=== PATIENT | female | born 1960 | race Two or more races ===

== ENCOUNTER 2016-12-07 13:28 | Emergency (ER) | payer MEDICAID ==
[~2016-12-07] VITALS: Ht 167.6 cm; Wt 135.2 kg
[~2016-12-07 13:28] MED LIST: AMBIEN10 MG PO; AMLODIPINE; AMLODIPINE BESYL5 MG ORAL; ASPIRIN EC81 MG PO; ATENOLOL; ATIVAN1 MG PO; BENADRYL50 MG ORAL; COLACE; COLACE250 MG PO; DIABETA2.5 MG ORAL; ENALAPRIL MALEA20 MG PO; FLUCONAZOLE150 MG ORAL; GLUCOPHAGE850 MG PO; GLYBURIDE; IBUPROFEN600 MG ORAL; JANUMET 50-1,01 EACH ORAL; LIPITOR40 MG ORAL; METOPROLOL TART50 M1 ORAL; NORCO; NORCO 10-325 T1 EACH PO; NORCO 5-325 TA1 EACH ORAL; NORVASC5 MG PO; OXYCODONE IR15 MG ORAL; PHENAZOPYRIDIN100 MG ORAL; PRILOSEC20 MG PO; PROTONIX40 M2 GT; SIMVASTATIN40 MG PO; SOMA350 MG PO; TENORMIN25 MG PO; VUSION OINTMENT50 GM TP; ZANTAC150 MG PO; ZESTRIL10 M1 ORAL; ZOFRAN ODT4 MG ORAL
[2016-12-07 14:17] VITALS: BP 164/87
--- NOTE | 2016-12-08 21:40 | Emergency Room Report ---
History of Present Illness General Chief Complaint: Pain Source: Patient Present Illness HPI Patient presents with bilateral knee pain However mainly complains of left-sided knee pain Reports that she previous knee replacements Off-and-on she has pain last week she had an episode where she feels that the knee dislocated And then came back into place Since then she has some discomfort with ambulation Denies any fevers or chills denies any swelling at this time denies any redness Allergies: Coded Allergies: CEFOTETAN (Verified Allergy, Severe, SHORTNESS OF BREATH, 03/20/12) CEFOTETAN DISODIUM (Unverified Allergy, Severe, 07/29/12) QUINOLONES (Verified Allergy, Mild, Rash, 03/20/12) CEFAZOLIN (Verified Allergy, Unknown, 07/01/09) CEFOTIAM (Verified Allergy, Unknown, Anaphylaxis, 12/07/16) CIPROFLOXACIN (Verified Allergy, Unknown, Hives, 12/07/16) CIPROFLOXACIN HCL (Verified Allergy, Unknown, Hives, 12/07/16) DEXTROSE-WATER (Unverified Allergy, Unknown, 12/07/16) LEVOFLOXACIN (Verified Allergy, Unknown, 12/07/16) Uncoded Allergies: SUFTAN (Allergy, Unknown, 12/07/16) Patient History Past Medical History: see triage record Pertinent Family History: none Reviewed Nursing Documentation: PMH: Agreed, PSxH: Agreed Nursing Documentation-PMH Past Medical History: No History, Except For Hx Cardiac Problems: No - BILATERAL HIP SURGERY Hx Hypertension: Yes Hx Diabetes: Yes Hx Cancer: No Hx Gastrointestinal Problems: Yes - DIVERTICULITIS, ABD HERNIA REPAIR Review of Systems All Other Systems: negative except mentioned in HPI Physical Exam Vital Signs Date Time Temp Pulse Resp B/P Pulse Ox O2 Delivery O2 Flow Rate FiO2 12/07/16 13:35 98.4 102 14 164/87 98 Room Air Sp02 EP Interpretation: reviewed, normal General Appearance: well appearing, no apparent distress Head: normocephalic, atraumatic Eyes: bilateral eye EOMI, bilateral eye PERRL ENT: hearing grossly normal, normal pharynx, TMs + canals normal, uvula midline Neck: full range of motion, supple, no meningismus, no bony tend Respiratory: lungs clear, normal breath sounds, no rhonchi, no respiratory distress, no retraction, no accessory muscle use Cardiovascular #1: normal peripheral pulses, regular rate, rhythm, no edema, no gallop, no JVD, no murmur Gastrointestinal: normal bowel sounds, non tender, soft, no mass, no organomegaly, non-distended, no guarding, no hernia, no pulsatile mass, no rebound Genitourinary: no CVA tenderness Musculoskeletal: other - Evidence of previous bilateral knee replacements, no obvious joint effusion, patient has range of motion intact Neurologic: oriented x3, responsive, learning operations specialist III-XII nml as tested, motor strength/ tone normal, sensory intact Psychiatric: mood/affect normal Skin: normal color, no rash, warm/dry, palpation normal Lymphatic: normal inspection, no adenopathy Medical Decision Making Diagnostic Impression: Primary Impression: knee pain Additional Impression: knee sprain ER Course Patient has evidence of acute on chronic knee discomfort at this time I do not appreciate Clinical findings in line with any acute fractures Patient might have suffered ligamental injury With the injury At this time ambulatory patient is under pain management care In a stable for close outpatient followup Last Vital Signs Date Time Temp Pulse Resp B/P Pulse Ox O2 Delivery O2 Flow Rate FiO2 12/07/16 14:17 72 16 130/80 98 Room Air 12/07/16 14:17 98.4 Status: unchanged Disposition: HOME, SELF-CARE Condition: Stable Referrals: [facility],REFERRING (PCP) Patient Instructions: Knee Sprain, Hprb-[id number], Knee Pain, [id number] Additional Instructions: Patient is provided with the discharge instructions notified to follow up with primary doctor in the next 2-3 days otherwise return to the er with any worsening symptoms. Please note that this report is being documented using [employer] technology. This can lead to erroneous entry secondary to incorrect interpretation by the dictating instrument. DESTINY JIMENES D.O. Dec 08, 2016 21:40
== END 2016-12-07 14:28 | disposition home or self-care (01) ==
LOC: EMR 14:08
DX: S83.92XA Sprain of unspecified site of left knee, initial encounter (principal); S83.91XA Sprain of unspecified site of right knee, initial encounter; X58.XXXA Exposure to other specified factors, initial encounter; Y92.9 Unspecified place or not applicable; Z88.1 Allergy status to other antibiotic agents; E11.9 Type 2 diabetes mellitus without complications; I10 Essential (primary) hypertension; Z96.653 Presence of artificial knee joint, bilateral
CPT/HCPCS: 99282

== ENCOUNTER 2018-08-23 13:04 | Emergency (ER) | payer MEDICAID ==
[~2018-08-23] VITALS: Ht 170.2 cm; Wt 124.7 kg
[2018-08-23 13:15] VITALS: BP 148/86
--- NOTE | 2018-08-23 13:15 | NUR ---
ED Nurse Note: PT WALKED IN TO ER TODAY FROM HOME. AOX4. PT C/O BRUISING, WARMTH, ITCHING AND PAIN IN RIGHT ARM X YESTERDAY AM. CIRCULATION AND SENSATION INTACT, CAP REFILL <3 SECONDS, FULL ROM OF DIGITS AND EXTREMITY, AND MUSCLE STRENGTH 5/5.
[2018-08-23] MEDS ORDERED: Hydrocortisone 2.5% Oint 30gm TOPIC ONE (14:30)
[2018-08-23] MEDS ORDERED: Clindamycin 150mg cap ORAL ONE (14:30)
--- NOTE | 2018-08-23 14:37 | Emergency Room Report ---
History of Present Illness General Chief Complaint: Skin Rash/Abscess Source: Patient Present Illness HPI 57-year-old female presents to the emergency department complaining of 2 insect bites on the right forearm since yesterday with erythema, warmth, itching and tenderness. Patient states that one swelled up to giant out but then decreased on its own. Patient is concerned about the amount of erythema and some linear bruising. Patient states she was just recently discharged from patient being treated for pneumonia. She reports 8/10 in sensation burning pain. Patient states she is currently taking doxycycline. Pt. denies fevers, chills or swollen tender lymph nodes. Denies lesions/rashes elsewhere on the body. Denies new medications or body washes or creams. Denies swelling of the lips, tongue , throat or airway. Denies wheezing, or shortness of breath. Denies recent travel , recent illness or ill contacts. denies blisters, oral lesions, or sloughing of the skin Allergies: Coded Allergies: CEFOTETAN (Verified Allergy, Severe, SHORTNESS OF BREATH, 03/20/12) CEFOTETAN DISODIUM (Unverified Allergy, Severe, 07/29/12) QUINOLONES (Verified Allergy, Mild, Rash, 03/20/12) CEFAZOLIN (Verified Allergy, Unknown, 07/01/09) CEFOTIAM (Verified Allergy, Unknown, Anaphylaxis, 12/07/16) CIPROFLOXACIN (Verified Allergy, Unknown, Hives, 12/07/16) CIPROFLOXACIN HCL (Verified Allergy, Unknown, Hives, 12/07/16) DEXTROSE-WATER (Unverified Allergy, Unknown, 12/07/16) LEVOFLOXACIN (Verified Allergy, Unknown, 12/07/16) Uncoded Allergies: SUFTAN (Allergy, Unknown, 12/07/16) Patient History Past Medical History: see triage record Past Surgical History: none Pertinent Family History: none Now: No Reviewed Nursing Documentation: PMH: Agreed; PSxH: Agreed Nursing Documentation-PMH Past Medical History: No History, Except For Hx Cardiac Problems: No - BILATERAL HIP SURGERY Hx Hypertension: Yes Hx Diabetes: Yes Hx Cancer: No Hx Gastrointestinal Problems: Yes - DIVERTICULITIS, ABD HERNIA REPAIR Review of Systems All Other Systems: negative except mentioned in HPI Physical Exam Vital Signs Date Time Temp Pulse Resp B/P (MAP) Pulse Ox O2 Delivery O2 Flow Rate FiO2 08/23/18 13:12 99.0 68 20 152/88 98 Room Air Sp02 EP Interpretation: reviewed, normal General Appearance: no apparent distress, alert, GCS 15, non-toxic Head: normocephalic, atraumatic Eyes: bilateral eye normal inspection, bilateral eye PERRL ENT: hearing grossly normal, normal voice Neck: full range of motion Respiratory: lungs clear, normal breath sounds, speaking full sentences Cardiovascular #1: regular rate, rhythm Musculoskeletal: back normal, gait/station normal, normal range of motion, non- tender Neurologic: alert, oriented x3, responsive, motor strength/tone normal, sensory intact, speech normal, grossly normal Psychiatric: judgement/insight normal Skin: warm/dry, well hydrated, other - erythema, warmth and two discrete lesions right fore arm, the linear pattern of bruising/ petechiae is most likely secondary to scratching. no blisters Lymphatic: no adenopathy Medical Decision Making PA Attestation Dr. Dave is my supervising Physician whom patient management has been discussed with. Diagnostic Impression: Primary Impression: Cellulitis of forearm, right ER Course 57-year-old female presents to the emergency department complaining of 2 insect bites on the right forearm since yesterday with erythema, warmth, itching and tenderness. Patient states that one swelled up to giant out but then decreased on its own. Patient is concerned about the amount of erythema and some linear bruising. Patient states she was just recently discharged from patient being treated for pneumonia. She reports 8/10 in sensation burning pain. Patient states she is currently taking doxycycline. Pt. denies fevers, chills or swollen tender lymph nodes. Denies lesions/rashes elsewhere on the body. Denies new medications or body washes or creams. Denies swelling of the lips, tongue , throat or airway. Denies wheezing, or shortness of breath. Denies recent travel , recent illness or ill contacts. denies blisters, oral lesions, or sloughing of the skin Ddx considered but are not limited to cellulitis, Drug reaction, Allergic reaction, insect bite, blood disorder just to name a few. Vital signs: are WNL, pt. is afebrile H&PE are most consistent with Cellulitis of the right fore arm, the linear pattern of bruising/ petechiae is most likely secondary to scratching. no blisters noted. ORDERS: none required at this time, the diagnosis is clinical ED INTERVENTIONS: -Clindamycin PO -Hydrocortisone Cream TP -Patient is discharged with very strict ED return precautions and close outpatient follow-up. Patient is aware what signs and symptoms that would indicate prompt return to the emergency department. DISCHARGE: At this time pt. is stable for d/c to home. Will provide printed patient care instructions, and any necessary prescriptions. Care plan and follow up instructions have been discussed with the patient prior to discharge. Last Vital Signs Date Time Temp Pulse Resp B/P (MAP) Pulse Ox O2 Delivery O2 Flow Rate FiO2 08/23/18 13:12 99.0 68 20 152/88 98 Room Air Disposition: HOME, SELF-CARE Condition: Stable Scripts Clindamycin Hcl (CLINDAMYCIN HCL) 300 Mg Capsule 300 MG ORAL FOUR TIMES A DAY for 7 Days, #28 CAP Prov: Xiomara Can 08/23/18 Diphenhydramine Hcl* (BENADRYL*) 25 Mg Capsule 25 MG ORAL Q6H PRN for Itching, #20 CAP Prov: Xiomara Can 08/23/18 Additional Instructions: Take medications as directed. * Continue taking Doxycycline Strict monitoring for worsening/ progression of infection return immediately with more redness, swelling, and warmth. Follow up with a Primary Care Provider in 3-5 days, even if your symptoms have resolved. Return sooner to ED if new symptoms occur, or current symptoms become worse. - Please note that this Emergency Department Report was dictated using [employer] technology software, occasionally this can lead to erroneous entry secondary to interpretation by the dictation equipment. Xiomara Can Aug 23, 2018 14:37
[2018-08-23] MEDS ORDERED: AUGMENTIN 875-1 EAC1 ORAL (14:52)
[2018-08-23] MEDS ORDERED: BENADRYL25 MG ORAL (14:52)
[2018-08-23] MEDS ORDERED: CLINDAMYCIN HC300 MG ORAL (14:55)
[2018-08-23 15:09] VITALS: BP 140/68
--- NOTE | 2018-08-23 15:10 | NUR ---
ED Nurse Note: pt discharge instruction provided w/ prescription, pt verbalized understanding and agrees with plan, pt education done, pt advised to follow up w/ pcp in 2-3days, return to ED if s/s worsen or new s/s develop, pt belongings left w/ pt, id band removed. pt ambulatory, AA&ox4, gcs=15, vss.
== END 2018-08-23 15:11 | disposition home or self-care (01) ==
LOC: EMR 13:53
DX: L03.113 Cellulitis of right upper limb (principal); I10 Essential (primary) hypertension; E11.9 Type 2 diabetes mellitus without complications; Z88.1 Allergy status to other antibiotic agents; Z88.8 Allergy status to other drugs, medicaments and biological substances
CPT/HCPCS: 99283

== ENCOUNTER 2018-09-21 13:38 | Emergency (ER) | payer MEDICAID ==
[~2018-09-21] VITALS: Ht 170.2 cm; Wt 125.2 kg
[~2018-09-21 13:38] MED LIST changes: +AUGMENTIN 875-1 EAC1 ORAL; +BENADRYL25 MG ORAL; +CLINDAMYCIN HC300 MG ORAL
--- NOTE | 2018-09-21 13:40 | NUR ---
ED Nurse Note: last night pt felt dizzy, states that she hit her Rt shoulder and Rt knee and now has pain. patient rates her pain a 10/10 pain. patient is able to move both shoulders and legs however with pain
[2018-09-21 14:30] VITALS: BP 129/76
[2018-09-21] MEDS ORDERED: Norco 5mg/325mg tab ORAL ONE (15:15)
[2018-09-21 16:00] VITALS: BP 122/75
--- NOTE | 2018-09-21 16:00 | NUR ---
ED Nurse Note: Pt. AAOx4. left with steady and all belongings. Pt. education done regarding d/c papers and prescriptions. Pt. verbalized the uderstanding of the teaching. VSS. ID armband removed.
--- NOTE | 2018-09-21 16:02 | Diagnostic Imaging Report ---
Indication: Right elbow injury pain Findings: 3 views of the right elbow were obtained. No acute fractures, malalignment, erosions or periostitis are identified. Bone mineralization is within normal limits. Soft tissues are unremarkable. Impression: Negative examination of the elbow.
--- NOTE | 2018-09-21 16:02 | Diagnostic Imaging Report ---
Indication: Pain Knee pain/trauma 3 views of the right knee were obtained. Findings: There is a cemented total knee arthroplasty demonstrated. There are no abnormal interface lucencies or fractures identified. No soft tissue swelling or joint effusion is seen identified. The bones are osteopenic. IMPRESSION: No acute injury identified
--- NOTE | 2018-09-21 16:03 | Diagnostic Imaging Report ---
Indication: Right shoulder pain Findings: 3 views of the right shoulder were obtained. No acute fractures, malalignment, erosions or periostitis are identified. Bones are osteopenic. Some arthrosis at the acromioclavicular joint noted. Soft tissues are unremarkable. Impression: Negative for acute injury
--- NOTE | 2018-09-21 17:55 | Emergency Room Report ---
History of Present Illness General Chief Complaint: Pain Source: Patient Present Illness HPI Patient presents emergency department today complaining of fall that occurred yesterday. Patient states that she had a mechanical fall landed on her right shoulder and the back of her right neck. She's complaining of right shoulder pain and right elbow pain and right knee pain. She denies any neck pain chest pain shortness breath. Denies a loss consciousness. No other complaints are noted. Symptoms noted to be [id number].No other modifying factors. No other associated signs and symptoms. No other complaints were noted. Allergies: Coded Allergies: CEFOTETAN (Verified Allergy, Severe, SHORTNESS OF BREATH, 03/20/12) CEFOTETAN DISODIUM (Unverified Allergy, Severe, 07/29/12) QUINOLONES (Verified Allergy, Mild, Rash, 03/20/12) CEFAZOLIN (Verified Allergy, Unknown, 07/01/09) CEFOTIAM (Verified Allergy, Unknown, Anaphylaxis, 12/07/16) CIPROFLOXACIN (Verified Allergy, Unknown, Hives, 12/07/16) CIPROFLOXACIN HCL (Verified Allergy, Unknown, Hives, 12/07/16) DEXTROSE-WATER (Unverified Allergy, Unknown, 12/07/16) LEVOFLOXACIN (Verified Allergy, Unknown, 12/07/16) Uncoded Allergies: SUFTAN (Allergy, Unknown, 12/07/16) Patient History Past Medical History: DM, HTN, other - diverticulitis, hernia repair Past Surgical History: other - right knee surgery Pertinent Family History: none Social History: Denies: smoking, alcohol use, drug use Reviewed Nursing Documentation: PMH: Agreed; PSxH: Agreed Nursing Documentation-PMH Hx Cardiac Problems: No - BILATERAL HIP SURGERY Hx Hypertension: Yes Hx Diabetes: Yes Hx Cancer: No Hx Gastrointestinal Problems: Yes - DIVERTICULITIS, ABD HERNIA REPAIR Review of Systems All Other Systems: negative except mentioned in HPI Physical Exam Vital Signs Date Time Temp Pulse Resp B/P (MAP) Pulse Ox O2 Delivery O2 Flow Rate FiO2 09/21/18 13:55 98.1 105 20 96 Room Air 09/21/18 14:30 129/76 Sp02 EP Interpretation: reviewed, normal General Appearance: normal inspection, well appearing, no apparent distress, alert Head: atraumatic Eyes: bilateral eye normal inspection ENT: normal ENT inspection, hearing grossly normal, normal voice Neck: normal inspection, full range of motion, supple, no bony tend Respiratory: normal inspection, lungs clear, normal breath sounds, no respiratory distress, no retraction, no wheezing Cardiovascular #1: regular rate, rhythm, no edema Gastrointestinal: normal inspection, normal bowel sounds, non tender, soft, no guarding, no hernia Genitourinary: no CVA tenderness Musculoskeletal: normal inspection, back normal, normal range of motion, tender - right shoulder, right elbow, right knee Neurologic: normal inspection, alert, responsive, speech normal Psychiatric: normal inspection, judgement/insight normal, mood/affect normal Skin: normal inspection, normal color, no rash Medical Decision Making Diagnostic Impression: Primary Impression: Strain of knee and leg, right Additional Impressions: Right shoulder strain Fall ER Course Patient presents emergency department today status post fall. Differential considerations cofactors dislocation versus strain. Given patient's presentation I felt x-rays are indicated. X-rays of the knee shoulder and elbow were interpreted by radiology negative for any fractures. Patient is able to ambulate with some assistance. There is no evidence of any acute fractures clinically either. Patient was placed in a sling which made her feel more comfortable. Patient states that she has a prescription pain medications at home.Patient is advised to follow up with primary doctor in 2-3 days and return the emergency room for any worsening symptoms and as needed. Last Vital Signs Date Time Temp Pulse Resp B/P (MAP) Pulse Ox O2 Delivery O2 Flow Rate FiO2 09/21/18 14:30 98.1 82 20 129/76 96 Room Air Status: improved Disposition: HOME, SELF-CARE Condition: Stable Referrals: ASHELY MCKEON,REFERRING (PCP) Patient Instructions: Shoulder Pain, How to Use a Sling Lg Landrum MD Sep 21, 2018 17:55
== END 2018-09-21 16:00 | disposition home or self-care (01) ==
LOC: EMR 14:56
DX: S46.911A Strain of unspecified muscle, fascia and tendon at shoulder and upper arm level, right arm, initial encounter (principal); S86.911A Strain of unspecified muscle(s) and tendon(s) at lower leg level, right leg, initial encounter; W19.XXXA Unspecified fall, initial encounter; Y92.9 Unspecified place or not applicable; E11.9 Type 2 diabetes mellitus without complications; I10 Essential (primary) hypertension; Z88.1 Allergy status to other antibiotic agents; Z88.8 Allergy status to other drugs, medicaments and biological substances
CPT/HCPCS: 99283

== ENCOUNTER 2018-11-29 13:48 | Emergency (ER) | payer MEDICAID ==
[~2018-11-29] VITALS: Ht 167.6 cm; Wt 117.5 kg
--- NOTE | 2018-11-29 14:26 | Emergency Room Report ---
History of Present Illness General Chief Complaint: Earache Present Illness HPI 58-year-old female presents with multiple complaints. Patient states that 3-1/ 2 weeks ago she had a fall and was evaluated in the hospital where CT scan and x -rays were negative. States that she is currently under the management of a welding machine setter and neurologist for frequent falls. States she has been having worsening right arm, shoulder, and neck pain after the fall. States is worse with movement and with abduction of the right shoulder. Taking Percocet for her pain. In addition to this the patient also complains of unable to hear from her left ear. States that she has no pain or pressure from her ear denies any headache or blurred vision. She denies any numbness, loss of range of motion, chest pain, shortness of breath. Allergies: Coded Allergies: CEFOTETAN (Verified Allergy, Severe, SHORTNESS OF BREATH, 03/20/12) CEFOTETAN DISODIUM (Unverified Allergy, Severe, 07/29/12) QUINOLONES (Verified Allergy, Mild, Rash, 03/20/12) CEFAZOLIN (Verified Allergy, Unknown, 07/01/09) CEFOTIAM (Verified Allergy, Unknown, Anaphylaxis, 12/07/16) CIPROFLOXACIN (Verified Allergy, Unknown, Hives, 12/07/16) CIPROFLOXACIN HCL (Verified Allergy, Unknown, Hives, 12/07/16) DEXTROSE-WATER (Unverified Allergy, Unknown, 12/07/16) LEVOFLOXACIN (Verified Allergy, Unknown, 12/07/16) Uncoded Allergies: SUFTAN (Allergy, Unknown, 12/07/16) Patient History Past Medical History: see triage record Pertinent Family History: none Last Menstrual Period: menopause Now: No Reviewed Nursing Documentation: PMH: Agreed; PSxH: Agreed Nursing Documentation-PMH Hx Cardiac Problems: No - BILATERAL HIP SURGERY Hx Hypertension: Yes Hx Diabetes: Yes Hx Cancer: No Hx Gastrointestinal Problems: Yes - DIVERTICULITIS, ABD HERNIA REPAIR Review of Systems All Other Systems: negative except mentioned in HPI Physical Exam Vital Signs Date Time Temp Pulse Resp B/P (MAP) Pulse Ox O2 Delivery O2 Flow Rate FiO2 11/29/18 14:00 99.0 89 16 121/73 96 Room Air Sp02 EP Interpretation: reviewed, normal General Appearance: no apparent distress, alert, GCS 15, non-toxic Head: normocephalic, atraumatic Eyes: bilateral eye normal inspection, bilateral eye PERRL ENT: hearing grossly normal, normal pharynx, no angioedema, normal voice, other - bilateral TMs obscured with cerumen Neck: full range of motion, supple/symm/no masses, other - pericervical tenderness Respiratory: chest non-tender, lungs clear, normal breath sounds, speaking full sentences Cardiovascular #1: regular rate, rhythm, no edema Musculoskeletal: back normal, gait/station normal, normal range of motion, other - uses cane to walk with right hand, tender - right shoulder Neurologic: alert, oriented x3, responsive, motor strength/tone normal, sensory intact, speech normal Psychiatric: judgement/insight normal, memory normal, mood/affect normal, no suicidal/homicidal ideation Lymphatic: no adenopathy Medical Decision Making PA Attestation Dr. Diaz is my supervising physician with whom patient management has been discussed with. Diagnostic Impression: Primary Impression: Impacted cerumen of left ear Additional Impressions: Excessive cerumen in right ear canal Right shoulder strain Qualified Codes: S46.911A - Strain of unspecified muscle, fascia and tendon at shoulder and upper arm level, right arm, initial encounter Cervical strain Qualified Codes: S16.1XXA - Strain of muscle, fascia and tendon at neck level , initial encounter ER Course Patient with right shoulder and neck pain status post fall 3-1/2 weeks ago. X- ray showed no acute fracture or dislocations. She has no evidence of spinal stenosis. She has no neurological symptoms. She had her left ear with decreased hearing which was improved after ear lavage due to impacted cerumen. Other X-Ray Diagnostic Results Other X-Ray Diagnostic Results : X-Ray ordered: Cervical spine and right shoulder # of Views/Limited Vs Complete: Complete Indication: Pain EP Interpretation: Yes PA Xray: Interpretation reviewed, by supervising MD, and agrees with findings. Interpretation: no dislocation, no soft tissue swelling, no fractures, other - Spurring of the right shoulder, fusion of cervical spine C6 and C7 Impression: No acute disease Electronically Signed by: Jes Vogt PA-C Last Vital Signs Date Time Temp Pulse Resp B/P (MAP) Pulse Ox O2 Delivery O2 Flow Rate FiO2 11/29/18 14:00 99.0 89 16 121/73 96 Room Air Disposition: HOME, SELF-CARE Condition: Improved Scripts Carbamide Peroxide (MURINE EAR WAX REMOVAL SYSTEM) 15 Ml Drops 15 ML OT BID for 4 Days, #1 UNIT Prov: Jes Vogt 11/29/18 Lidocaine (Lidoderm) 1 Each Adh..patch 1 PATCH TOPIC Q12HR, #7 PATCH 0 Refills Patch(es) may remain in place for up to 12 hours in any 24-hour period. Prov: Jes Vogt 11/29/18 Patient Instructions: Cerumen Impaction, Cervical Strain and Sprain With Rehab- [facility] Additional Instructions: Take medication as directed. Follow up with your PCP within 3-5 days for management of this chronic pain. Advise patient to use RICE therapy and avoid exercises for the next 2-3 weeks to help rest the neck and shoulder. Patient instructed to massage the muscles that are tight or tense, put ice for 5-7 minutes or a frozen bag of peas or cold gel pack on the area for 20 minutes at a time, a few times a day, put heat on the area to reduce pain and stiffness by either taking a hot shower or hot bath, or put a hot towel on the area for no more than 20 minutes at a time. Patient instructed to not use anything too hot that could burn your skin. Jes Vogt Nov 29, 2018 14:26
[2018-11-29] MEDS ORDERED: Docusate 100mg/10ml Liq NG ONE (14:30)
[2018-11-29 14:31] VITALS: BP 121/73
--- NOTE | 2018-11-29 14:33 | NUR ---
ED Nurse Note:pt. came with c/o right neck/shoulder pain and left ear wax, pt. went to CT scan
[2018-11-29] MEDS ORDERED: LIDODERM700 M1 TOPIC (15:43)
[2018-11-29] MEDS ORDERED: MURINE EAR WAX15 ML OT (15:43)
[2018-11-29 15:55] VITALS: BP 121/71
--- NOTE | 2018-11-29 15:56 | NUR ---
ED Nurse Note: pt cleared to be d/c per ERMD, pt discharge and aftercare instruction provided w/ prescription, pt education done via discussion and handout, pt advised to follow up with pcp or return to ed if sx worsen or new sx develop, pt verbalized understanding and agrees with plan, vss, ambulatory w/ steady gait w/ cane, left w/ all belongings, ID band removed. ear lavage done by personnel and payroll technician.
--- NOTE | 2018-11-29 16:15 | Diagnostic Imaging Report ---
Indication: Right shoulder pain Technique: 3 views of the right shoulder Comparison: none Findings: Small spurs are seen off of the acromion and clavicle. No acute fractures. No dislocations. The joint spaces are preserved. Impression: Negative
--- NOTE | 2018-11-29 17:26 | Diagnostic Imaging Report ---
Indication: Pain Technique: 3 views of the cervical spine Comparison: 01/02/2012 Findings: Bony alignment is normal. No prevertebral soft tissue swelling. No acute fractures. No dislocations. Vertebral body heights are preserved. There is degenerative disc narrowing at C4-5. There is ankylosis of the disc at C5-6. There is degenerative disc narrowing at C6-7. The degenerative changes have progressed significantly since the previous study. Impression: No acute bony trauma Degenerative changes, as described
== END 2018-11-29 15:57 | disposition home or self-care (01) ==
LOC: EMR 15:04
DX: S16.1XXA Strain of muscle, fascia and tendon at neck level, initial encounter (principal); S46.911A Strain of unspecified muscle, fascia and tendon at shoulder and upper arm level, right arm, initial encounter; H61.23 Impacted cerumen, bilateral; Z88.8 Allergy status to other drugs, medicaments and biological substances; I10 Essential (primary) hypertension; E11.9 Type 2 diabetes mellitus without complications; K57.90 Diverticulosis of intestine, part unspecified, without perforation or abscess without bleeding; Z98.1 Arthrodesis status; W19.XXXA Unspecified fall, initial encounter; Y92.9 Unspecified place or not applicable; Z91.81 History of falling
CPT/HCPCS: 72040; 99283

== ENCOUNTER 2020-01-06 10:07 | Inpatient (IN) | payer MEDICAID ==
[~2020-01-06] VITALS: Ht 165.1 cm; Wt 108.6 kg
[~2020-01-06 10:07] MED LIST changes: +LIDODERM700 M1 TOPIC; +MURINE EAR WAX15 ML OT; -PROTONIX40 M2 GT; +PROTONIX40 M2 PO; +ROBAXIN-500MG ORAL
[2020-01-06 10:24] VITALS: BP 161/95
[2020-01-06] MEDS ORDERED: Omnipaque-300 100ml vial INJ PRN (10:30)
[2020-01-06] MEDS ORDERED: Morphine Sulfate 4mg/ml Inj (IV USE ONLY) IVP ONE (10:30)
[2020-01-06] MEDS ORDERED: Pantoprazole Inj IV ONE (10:30)
--- NOTE | 2020-01-06 10:30 | NUR ---
ED Nurse Note: Pt ambulated assisted with cane to ED from home d/t abdominal pain with nausea, vomiting and diarrhea x 2 days. Pt is AOx4, appears to be restless. Pt's VSS, on RA, afebrile on triage. Pt denies any shortness of breath, recent fever nor coughing. Placed on bed and gown.
--- NOTE | 2020-01-06 10:40 | NUR ---
ED Nurse Note: blood and urine specimen collected, sent to labs.
--- NOTE | 2020-01-06 10:48 | Emergency Room Report ---
History of Present Illness General Chief Complaint: Abdominal Pain Source: Patient Present Illness HPI 59-year-old female presents with abdominal pain for 3 days. Pain is sharp, 8 out of 10, nonradiating. Notes vomiting and diarrhea. Denies fevers or chills. Denies runny nose cough congestion. Denies sick contacts or recent travel. States she has had "stomach problems" for years now. States she was recently switched from Protonix to another medication which she states is not helping. No other aggravating relieving factors. Denies chest pain or shortness of breath. Denies any other associated symptoms Allergies: Coded Allergies: CEFOTETAN (Verified Allergy, Severe, SHORTNESS OF BREATH, 03/20/12) CEFOTETAN DISODIUM (Unverified Allergy, Severe, 07/29/12) QUINOLONES (Verified Allergy, Mild, Rash, 03/20/12) CEFAZOLIN (Verified Allergy, Unknown, 07/01/09) CEFOTIAM (Verified Allergy, Unknown, Anaphylaxis, 12/07/16) CIPROFLOXACIN (Verified Allergy, Unknown, Hives, 12/07/16) CIPROFLOXACIN HCL (Verified Allergy, Unknown, Hives, 12/07/16) DEXTROSE-WATER (Unverified Allergy, Unknown, 12/07/16) LEVOFLOXACIN (Verified Allergy, Unknown, 12/07/16) Uncoded Allergies: SUFTAN (Allergy, Unknown, 12/07/16) COVID-19 Screening Contact w/high risk pt: No Recent Travel to affected area: No Experienced COVID-19 symptoms?: No COVID-19 Testing performed FRANCHISE SPECIALIST: No Patient History Past Medical History: HTN Past Surgical History: none Pertinent Family History: none Social History: Denies: smoking, alcohol use, drug use Now: No Immunizations: UTD Reviewed Nursing Documentation: PMH: Agreed; PSxH: Agreed Nursing Documentation-PMH Past Medical History: No History, Except For Hx Cardiac Problems: No - BILATERAL HIP SURGERY Hx Hypertension: Yes Hx Diabetes: Yes Hx Cancer: No Hx Gastrointestinal Problems: Yes - DIVERTICULITIS, ABD HERNIA REPAIR Review of Systems All Other Systems: negative except mentioned in HPI Physical Exam Vital Signs Date Time Temp Pulse Resp B/P (MAP) Pulse Ox O2 Delivery O2 Flow Rate FiO2 01/06/20 10:12 98.4 85 20 161/95 (117) 95 Room Air Sp02 EP Interpretation: reviewed, normal General Appearance: alert, GCS 15, non-toxic, mild distress, obese Head: normocephalic, atraumatic Eyes: bilateral eye normal inspection, bilateral eye PERRL ENT: hearing grossly normal, normal pharynx, no angioedema, normal voice Neck: full range of motion, supple/symm/no masses Respiratory: chest non-tender, lungs clear, normal breath sounds, speaking full sentences Cardiovascular #1: regular rate, rhythm, no edema Cardiovascular #2: 2+ carotid (R), 2+ carotid (L), 2+ radial (R), 2+ radial (L) , 2+ dorsalis pedis (R), 2+ dorsalis pedis (L) Gastrointestinal: normal bowel sounds, soft, non-distended, no guarding, no rebound, tenderness Rectal: deferred Genitourinary: normal inspection, no CVA tenderness Musculoskeletal: back normal, normal range of motion, gait/station normal, non- tender Neurologic: alert, motor strength/tone normal, oriented x3, sensory intact, responsive, speech normal Psychiatric: judgement/insight normal, memory normal, mood/affect normal, no suicidal/homicidal ideation Reflexes: 3+ bicep (R), 3+ bicep (L), 3+ tricep (R), 3+ tricep (L), 3+ knee (R) , 3+ knee (L) Skin: no rash Lymphatic: no adenopathy Medical Decision Making Diagnostic Impression: Primary Impression: Acute abdominal pain Additional Impression: Colitis ER Course Hospital Course 59-year-old female presents to ED with abd pain and vomiting and diarrhea Differential diagnoses include: BPH, cystitis, pyelonephritis, kidney stone Clinical course Patient placed on stretcher. classroom monitor. After initial history and physical I ordered labs, IV fluids, UA, pain medication and CT scan Labs - no leukocytosis, Hb/Hct stable. electrolytes ok CT abdomen and pelvis - colitis, ventral hernia with loops of bowel no obstruction noted Despite multiple rounds of medication patient continues to have pain and vomiting. Patient would benefit from inpatient admission Case discussed with Dr. Griffiths and he agreed to accept the patient to his service for further care and support I feel this is a highly complex case requiring extensive working including EKG/ Rhythm strip, Xray/CT/US, Blood/urine lab work, repeat exams while in ED, and administration of strong opiates/narcotics for pain control, admission to hospital or close patient follow up. Diagnosis - acute abdominal pain, colitis Patient admitted to floor in serious condition Labs Test 01/06/20 10:30 White Blood Count 8.6 K/UL (4.8-10.8) Red Blood Count 4.91 M/UL (4.20-5.40) Hemoglobin 13.1 G/DL (12.0-16.0) Hematocrit 39.6 % (37.0-47.0) Mean Corpuscular Volume 81 FL (80-99) Mean Corpuscular Hemoglobin 26.7 PG (27.0-31.0) Mean Corpuscular Hemoglobin Concent 33.0 G/DL (32.0-36.0) Red Cell Distribution Width 13.8 % (11.6-14.8) Platelet Count 261 K/UL (150-450) Mean Platelet Volume 8.5 FL (6.5-10.1) Neutrophils (%) (Auto) 61.4 % (45.0-75.0) Lymphocytes (%) (Auto) 25.7 % (20.0-45.0) Monocytes (%) (Auto) 8.0 % (1.0-10.0) Eosinophils (%) (Auto) 3.9 % (0.0-3.0) Basophils (%) (Auto) 0.9 % (0.0-2.0) Urine Color Yellow Urine Appearance Slightly cloudy Urine pH 6 (4.5-8.0) Urine Specific [place] 1.020 (1.005-1.035) Urine Protein 2+ (NEGATIVE) Urine Glucose (UA) Negative (NEGATIVE) Urine Ketones 2+ (NEGATIVE) Urine Blood Negative (NEGATIVE) Urine Nitrite Negative (NEGATIVE) Urine Bilirubin 1+ (NEGATIVE) Urine Ictotest Negative (NEGATIVE) Urine Urobilinogen 4 MG/DL (0.0-1.0) Urine Leukocyte Esterase Negative (NEGATIVE) Urine RBC 2-4 /HPF (0 - 2) Urine WBC 2-4 /HPF (0 - 2) Urine Squamous Epithelial Cells Moderate /LPF (NONE/OCC) Urine Bacteria Few /HPF (NONE) Urine Mucus Moderate /LPF (NONE/OCC) Sodium Level 140 MMOL/L (136-145) Potassium Level 4.5 MMOL/L (3.5-5.1) Chloride Level 103 MMOL/L (98-107) Carbon Dioxide Level 24 MMOL/L (21-32) Anion Gap 13 mmol/L (5-15) Blood Urea Nitrogen 12 mg/dL (7-18) Creatinine 1.0 MG/DL (0.55-1.30) Estimat Glomerular Filtration Rate 56.5 mL/min (>60) Glucose Level 146 MG/DL (74-106) Calcium Level 9.6 MG/DL (8.5-10.1) Total Bilirubin 0.4 MG/DL (0.2-1.0) Aspartate Amino Transf (AST/SGOT) 42 U/L (15-37) Alanine Aminotransferase (ALT/SGPT) 39 U/L (12-78) Alkaline Phosphatase 108 U/L (46-116) Total Protein 7.6 G/DL (6.4-8.2) Albumin 3.8 G/DL (3.4-5.0) Globulin 3.8 g/dL Albumin/Globulin Ratio 1.0 (1.0-2.7) Lipase 47 U/L (73-393) CT/MRI/US Diagnostic Results CT/MRI/US Diagnostic Results : Imaging Test Ordered: CT A/P Impression COMPARISON: CT abdomen/pelvis on 01/25/2014 FINDINGS: Lung bases: Unremarkable. No mass. No consolidation. ABDOMEN: Liver: Hemangioma again noted in the right liver. Stable small hypodensity more inferiorly in the right liver is too small to definitively characterize but may represent another hemangioma. Hepatomegaly. Gallbladder and bile ducts: Unremarkable. No calcified stones. No ductal dilation. Pancreas: Atrophy of the pancreas. No ductal dilation. Spleen: Splenule. Mild splenomegaly. Adrenals: Nonspecific stable bilateral adrenal nodules. Kidneys and ureters: Increased prominence of small hypodensities in the inferior right kidney which measure greater than simple fluid attenuation and are nonspecific. These lesions measure approximately 1.6 cm and 1 cm. Further evaluation could be performed with ultrasound. Punctate nonobstructing right renal stone. No hydronephrosis or ureteral stone. Nonspecific mild bilateral perinephric fat stranding. Lesion off the inferior left kidney seen on prior exam in 2014 is not appreciated on this exam. Stomach and bowel: Prominence of the kirkpatrick of the colon may be secondary to under distention, but element of colitis is not excluded. Prominence of the wall of the stomach may be secondary to under distention versus gastritis. Diverticulosis without evidence of diverticulitis. No bowel obstruction. PELVIS: Appendix: Appendix is not visualized, but no CT evidence of acute appendicitis. Bladder: Decompressed bladder limits evaluation. Reproductive: Prior hysterectomy. ABDOMEN and PELVIS: Intraperitoneal space: Unremarkable. No free air. No significant fluid collection. Bones/joints: Probable small bone islands in the pelvic bones. Degenerative changes of the spine. No acute fracture. No dislocation. Soft tissues: Probable left lateral ventral hernia repair with mild protrusion of bowel loops in this region. There is also protrusion of bowel loops in the lower midline abdomen with evidence of prior hernia repair. Vasculature: Atherosclerotic changes of the vasculature. No aortic aneurysm or dissection. Lymph nodes: Unremarkable. No enlarged lymph nodes. IMPRESSION: 1. Nonspecific stable bilateral adrenal nodules. 2. Increased prominence of small hypodensities in the inferior right kidney which measure greater than simple fluid attenuation and are nonspecific. These lesions measure approximately 1.6 cm and 1 cm. Further evaluation could be performed with ultrasound. Neoplasm such as RCC is not excluded. 3. Punctate nonobstructing right renal stone. No hydronephrosis or ureteral stone. 4. Prominence of the kirkpatrick of the colon may be secondary to under distention, but element of colitis is not excluded. Last Vital Signs Date Time Temp Pulse Resp B/P (MAP) Pulse Ox O2 Delivery O2 Flow Rate FiO2 01/06/20 10:24 85 20 Room Air 01/06/20 10:24 98.4 161/95 95 Status: improved Disposition: ADMITTED INPATIENT Condition: Serious Referrals: NON PHYSICIAN (PCP) Curt Farooq MD January 06, 2020 10:48
[2020-01-06 10:57] LABS: APPEARANCE,URINE SLIGHTLY CLOUDY; BASOPHILS % (AUTO) 0.9 % (0.0-2.0); BILIRUBIN, URINE 1+ (NEGATIVE); EOSINOPHILS % (AUTO) 3.9 % (0.0-3.0); GLUCOSE, URINE (UA) NEGATIVE (NEGATIVE); HEMATOCRIT 39.6 % (37.0-47.0); HEMOGLOBIN 13.1 G/DL (12.0-16.0); KETONES,URINE 2+ (NEGATIVE); LEUKOCYTE ESTERASE ,URINE NEGATIVE (NEGATIVE); LYMPHOCYTES % (AUTO) 25.7 % (20.0-45.0); MEAN CORPUSCULAR VOLUME 81 FL (80-99); NEUTROPHILS % (AUTO) 61.4 % (45.0-75.0); NITRITE,URINE NEGATIVE (NEGATIVE); PH,URINE 6 (4.5-8.0); PLATELET COUNT 261 K/UL (150-450); PROTEIN,URINE 2+ (NEGATIVE); RED BLOOD COUNT 4.91 M/UL (4.20-5.40); RED CELL DISTRIBUTION WIDTH 13.8 % (11.6-14.8); UROBILINOGEN,URINE 4 MG/DL (0.0-1.0); WHITE BLOOD COUNT 8.6 K/UL (4.8-10.8)
[2020-01-06 11:05] LABS: ANION GAP 13 mmol/L (5-15); BLOOD UREA NITROGEN 12 mg/dL (7-18); CALCIUM 9.6 MG/DL (8.5-10.1); CARBON DIOXIDE 24 MMOL/L (21-32); CHLORIDE 103 MMOL/L (98-107); POTASSIUM 4.5 MMOL/L (3.5-5.1); SODIUM 140 MMOL/L (136-145)
[2020-01-06 11:09] LABS: ALANINE AMINOTRANSFERASE 39 U/L (12-78); ALBUMIN 3.8 G/DL (3.4-5.0); ALKALINE PHOSPHATASE 108 U/L (46-116); ASPARTATE AMINO TRANSFERASE 42 U/L (15-37); BILIRUBIN,TOTAL 0.4 MG/DL (0.2-1.0); COLOR,URINE YELLOW
--- NOTE | 2020-01-06 11:10 | NUR ---
ED Nurse Note: per pt, "I'm feeling some itchiness on my arms right now. Sometimes, i have an occassional allergic reaction to morphine." Notified ERMD.
[2020-01-06] MEDS ORDERED: DiphenhydrAMINE 50mg/ml Inj IVP ONE (11:15)
--- NOTE | 2020-01-06 11:20 | NUR ---
ED Nurse Note: Pt went on CT on stable condition accompanied by tech.
--- NOTE | 2020-01-06 11:55 | Diagnostic Imaging Report ---
EXAM: CT Abdomen and Pelvis With Intravenous Contrast CLINICAL HISTORY: ABD PAIN TECHNIQUE: Axial computed tomography images of the abdomen and pelvis with intravenous contrast. CTDI is 18.3 mGy and DLP is 983.3 mGy-cm. One or more of the following dose reduction techniques were used: automated exposure control, adjustment of the mA and/or kV according to patient size, use of iterative reconstruction technique. COMPARISON: CT abdomen/pelvis on 01/25/2014 FINDINGS: Lung bases: Unremarkable. No mass. No consolidation. ABDOMEN: Liver: Hemangioma again noted in the right liver. Stable small hypodensity more inferiorly in the right liver is too small to definitively characterize but may represent another hemangioma. Hepatomegaly. Gallbladder and bile ducts: Unremarkable. No calcified stones. No ductal dilation. Pancreas: Atrophy of the pancreas. No ductal dilation. Spleen: Splenule. Mild splenomegaly. Adrenals: Nonspecific stable bilateral adrenal nodules. Kidneys and ureters: Increased prominence of small hypodensities in the inferior right kidney which measure greater than simple fluid attenuation and are nonspecific. These lesions measure approximately 1.6 cm and 1 cm. Further evaluation could be performed with ultrasound. Punctate nonobstructing right renal stone. No hydronephrosis or ureteral stone. Nonspecific mild bilateral perinephric fat stranding. Lesion off the inferior left kidney seen on prior exam in 2013 is not appreciated on this exam. Stomach and bowel: Prominence of the kirkpatrick of the colon may be secondary to under distention, but element of colitis is not excluded. Prominence of the wall of the stomach may be secondary to under distention versus gastritis. Diverticulosis without evidence of diverticulitis. No bowel obstruction. PELVIS: Appendix: Appendix is not visualized, but no CT evidence of acute appendicitis. Bladder: Decompressed bladder limits evaluation. Reproductive: Prior hysterectomy. ABDOMEN and PELVIS: Intraperitoneal space: Unremarkable. No free air. No significant fluid collection. Bones/joints: Probable small bone islands in the pelvic bones. Degenerative changes of the spine. No acute fracture. No dislocation. Soft tissues: Probable left lateral ventral hernia repair with mild protrusion of bowel loops in this region. There is also protrusion of bowel loops in the lower midline abdomen with evidence of prior hernia repair. Vasculature: Atherosclerotic changes of the vasculature. No aortic aneurysm or dissection. Lymph nodes: Unremarkable. No enlarged lymph nodes. IMPRESSION: 1. Nonspecific stable bilateral adrenal nodules. 2. Increased prominence of small hypodensities in the inferior right kidney which measure greater than simple fluid attenuation and are nonspecific. These lesions measure approximately 1.6 cm and 1 cm. Further evaluation could be performed with ultrasound. Neoplasm such as RCC is not excluded. 3. Punctate nonobstructing right renal stone. No hydronephrosis or ureteral stone. 4. Prominence of the kirkpatrick of the colon may be secondary to under distention, but element of colitis is not excluded.
[2020-01-06] MEDS ORDERED: HYDROmorphone 1mg/ml Carpuject IVP ONE (12:15)
[2020-01-06] MEDS ORDERED: JANUMET 50-1,01 EACH ORAL (12:33)
[2020-01-06] MEDS ORDERED: TRAZODONE HCL50 MG ORAL (12:33)
[2020-01-06] MEDS ORDERED: COLACE100 MG ORAL (12:33)
[2020-01-06] MEDS ORDERED: GABAPENTIN800 MG ORAL (12:33)
[2020-01-06] MEDS ORDERED: LIORESAL20 MG ORAL (12:33)
--- NOTE | 2020-01-06 12:35 | History & Physical ---
History of Present Illness General Date patient seen: January 06, 2020 Reason for Hospitalization: Abdominal Pain Present Illness HPI This is a 59 yo F who presents w/ abdominal pain for approximately three days; CT A/P shows Colitis, and evidence of abdominal hernia, no incarceration; patient has a hx of diverticulitis flares, as well as what sounds like perforated bowel s/p Colectomy, with evidence of Laparotomy scar. Patient denies fevers, but states she has been having pain, nausea and vomiting. Her blood work is normal, however she was told by her PCP that she should get into see a GI physician soon for this ongoing issues. She states her last Colonoscopy was approximately three years ago; she recalls being told she had Polyps. She denies sick contacts. Patient also has a pmh of HTN, HLD, DMII Surgical Hx: Abdominal Hernia Repair, Lap w/ Colectomy ( per patient report) FH: HTN, DMII SH: Denies Drinking/Smoking Patient will be admitted for management of symptoms; and both PCP and GI will be consulted. Allergies: Coded Allergies: CEFOTETAN (Verified Allergy, Severe, SHORTNESS OF BREATH, 03/20/12) CEFOTETAN DISODIUM (Unverified Allergy, Severe, 07/29/12) QUINOLONES (Verified Allergy, Mild, Rash, 03/20/12) CEFAZOLIN (Verified Allergy, Unknown, 07/01/09) CEFOTIAM (Verified Allergy, Unknown, Anaphylaxis, 12/07/16) CIPROFLOXACIN (Verified Allergy, Unknown, Hives, 12/07/16) CIPROFLOXACIN HCL (Verified Allergy, Unknown, Hives, 12/07/16) DEXTROSE-WATER (Unverified Allergy, Unknown, 12/07/16) LEVOFLOXACIN (Verified Allergy, Unknown, 12/07/16) Uncoded Allergies: SUFTAN (Allergy, Unknown, 12/07/16) COVID-19 Screening Contact w/high risk pt: No Recent Travel to affected area: No Experienced COVID-19 symptoms?: No Medication History Scheduled Amlodipine Besylate* (Amlodipine Besylate*), 5 MG ORAL DAILY, (Reported) Aspirin Ec* (Aspirin Ec*), 81 MG PO DAILY, (Reported) Atorvastatin Calcium* (Lipitor*), 40 MG ORAL BEDTIME, (Reported) Baclofen (Baclofen), 20 MG ORAL FOUR TIMES A DAY, (Reported) Carbamide Peroxide (Murine Ear Wax Removal System), 15 ML OT BID Carisoprodol* (Soma*), 350 MG PO BID, (Reported) Clindamycin Hcl (Clindamycin Hcl), 300 MG ORAL FOUR TIMES A DAY Docusate Sodium (Docusate Sodium), 200 MG PO BID, (Reported) Docusate Sodium* (Colace*), 100 MG ORAL TWICE A DAY, (Reported) Enalapril Maleate* (Enalapril Maleate*), 20 MG PO Q12HR, (Reported) Fluconazole (Fluconazole), 150 MG ORAL ONCE Gabapentin* (Gabapentin*), 800 MG ORAL THREE TIMES A DAY, (Reported) Glyburide* (Diabeta*), 2.5 MG ORAL DAILY, (Reported) Hydrocodone Bit/Acetaminophen 10-325* ([place] 10-325*), 1 TAB PO Q6H Lidocaine Patch* (Lidoderm Patch*), 1 PATCH TOPIC Q12HR Lisinopril* (Zestril*), 10 MG ORAL DAILY, (Reported) Metoprolol Tartrate* (Metoprolol Tartrate*), 50 MG ORAL D, (Reported) Miconazole Nitrate/Zinc Ox/Pet (Vusion Ointment), 50 GM TP BID Omeprazole (Prilosec), 20 MG PO DAILY Pantoprazole Sodium (Protonix), 40 MG PO DAILY, (Reported) Phenazopyridine Hcl* (Pyridium*), 100 MG ORAL THREE TIMES A DAY Ranitidine Hcl* (Zantac*), 150 MG PO BID Simvastatin (Zocor), 40 MG PO QHS, (Reported) Sitagliptin Phos/Metformin Hcl (Janumet 50-1,000 Mg Tablet), 1 TAB ORAL TWICE A DAY, (Reported) Sitagliptin Phos/Metformin Hcl (Janumet 50-1,000 Mg Tablet), 1 TAB ORAL TWICE A DAY, (Reported) Trazodone Hcl* (Desyrel*), 50 MG ORAL BEDTIME, (Reported) Zolpidem Tartrate* (Ambien*), 10 MG PO HS, (Reported) Scheduled PRN Diphenhydramine HCl (Diphenhydramine HCl), 50 MG ORAL HS PRN for Itching, ( Reported) Diphenhydramine Hcl* (Benadryl*), 25 MG ORAL Q6H PRN for Itching Hydrocodone Bit/Acetaminophen 5-325* ([place] 5-325*), 1 TAB ORAL Q8HR PRN for For Pain Ibuprofen (Motrin), 600 MG ORAL Q6H PRN for For Pain Ibuprofen (Motrin), 600 MG ORAL Q8H PRN for For Pain Lorazepam* (Ativan*), 1 MG PO for Agitation, (Reported) Methocarbamol* (Robaxin-500*), 500 MG ORAL TID PRN for For Pain Ondansetron Odt* (Zofran Odt*), 4 MG ORAL Q6H PRN for Nausea & Vomiting Oxycodone HCl (Oxycodone HCl), 15 MG ORAL Q4H PRN for For Pain Patient History Healthcare decision maker Resuscitation status Advanced Directive on File Review of Systems Review of Symptoms General ROS: no weight loss or fever Psychological ROS: no depression or mood changes, no memory loss Ophthalmic ROS: no visual changes or eye irritation ENT ROS: no nasal congestion, hearing loss, dizziness Allergy and Immunology ROS: no allergic symptoms or urticaria Hematological and Lymphatic ROS: no swollen glands, unusual bleeding or bruising Endocrine ROS: no polyuria, polydipsia, weight changes, temperature intolerance Respiratory ROS: no cough, shortness of breath, or wheezing Cardiovascular ROS: no chest pain or dyspnea on exertion Gastrointestinal ROS: + Abdominal pain, + Nausea, + Vomiting Musculoskeletal ROS: no myalgias or arthralgias Neurological ROS: no TIA or stroke symptoms Dermatological ROS: no new or changing skin lesions, rashes or pruritis Physical Exam Physical Exam General appearance: alert, cooperative, no distress, appears stated age Head: Normocephalic, without obvious abnormality, atraumatic Eyes: conjunctivae/corneas clear. PERRL, EOM's intact. Fundi benign Throat: Lips, mucosa, and tongue normal. Teeth and gums normal Neck: supple, symmetrical, trachea midline, no adenopathy, thyroid: not enlarged, symmetric, no tenderness/mass/nodules, no carotid bruit and no JVD Lungs: clear to auscultation bilaterally Heart: regular rate and rhythm, S1, S2 normal, no murmur, click, rub or gallop Abdomen: Tender to Palpation diffusely, no rebound or guarding, large Ex Lap scar well healed Extremities: extremities normal, atraumatic, no cyanosis or edema Pulses: 2+ and symmetric Skin: Skin color, texture, turgor normal. No rashes or lesions Neurologic: Grossly normal Last 24 Hour Vital Signs Date Time Temp Pulse Resp B/P (MAP) Pulse Ox O2 Delivery O2 Flow Rate FiO2 01/06/20 11:03 98.4 01/06/20 10:24 85 20 Room Air 01/06/20 10:24 98.4 20 161/95 95 Room Air 01/06/20 10:12 98.4 85 20 161/95 (117) 95 Room Air Laboratory Tests Test 01/06/20 10:30 White Blood Count 8.6 K/UL (4.8-10.8) Red Blood Count 4.91 M/UL (4.20-5.40) Hemoglobin 13.1 G/DL (12.0-16.0) Hematocrit 39.6 % (37.0-47.0) Mean Corpuscular Volume 81 FL (80-99) Mean Corpuscular Hemoglobin 26.7 PG (27.0-31.0) L Mean Corpuscular Hemoglobin Concent 33.0 G/DL (32.0-36.0) Red Cell Distribution Width 13.8 % (11.6-14.8) Platelet Count 261 K/UL (150-450) Mean Platelet Volume 8.5 FL (6.5-10.1) Neutrophils (%) (Auto) 61.4 % (45.0-75.0) Lymphocytes (%) (Auto) 25.7 % (20.0-45.0) Monocytes (%) (Auto) 8.0 % (1.0-10.0) Eosinophils (%) (Auto) 3.9 % (0.0-3.0) H Basophils (%) (Auto) 0.9 % (0.0-2.0) Urine Color Yellow Urine Appearance Slightly cloudy Urine pH 6 (4.5-8.0) Urine Specific [place] 1.020 (1.005-1.035) Urine Protein 2+ (NEGATIVE) H Urine Glucose (UA) Negative (NEGATIVE) Urine Ketones 2+ (NEGATIVE) H Urine Blood Negative (NEGATIVE) Urine Nitrite Negative (NEGATIVE) Urine Bilirubin 1+ (NEGATIVE) H Urine Ictotest Negative (NEGATIVE) Urine Urobilinogen 4 MG/DL (0.0-1.0) H Urine Leukocyte Esterase Negative (NEGATIVE) Urine RBC 2-4 /HPF (0 - 2) H Urine WBC 2-4 /HPF (0 - 2) Urine Squamous Epithelial Cells Moderate /LPF (NONE/OCC) H Urine Bacteria Few /HPF (NONE) Urine Mucus Moderate /LPF (NONE/OCC) H Sodium Level 140 MMOL/L (136-145) Potassium Level 4.5 MMOL/L (3.5-5.1) Chloride Level 103 MMOL/L (98-107) Carbon Dioxide Level 24 MMOL/L (21-32) Anion Gap 13 mmol/L (5-15) Blood Urea Nitrogen 12 mg/dL (7-18) Creatinine 1.0 MG/DL (0.55-1.30) Estimat Glomerular Filtration Rate 56.5 mL/min (>60) Glucose Level 146 MG/DL (74-106) H Calcium Level 9.6 MG/DL (8.5-10.1) Total Bilirubin 0.4 MG/DL (0.2-1.0) Aspartate Amino Transf (AST/SGOT) 42 U/L (15-37) H Alanine Aminotransferase (ALT/SGPT) 39 U/L (12-78) Alkaline Phosphatase 108 U/L (46-116) Total Protein 7.6 G/DL (6.4-8.2) Albumin 3.8 G/DL (3.4-5.0) Globulin 3.8 g/dL Albumin/Globulin Ratio 1.0 (1.0-2.7) Lipase 47 U/L (73-393) L Height (Feet): 5 Height (Inches): 6.00 Weight (Pounds): 242 Medications Current Medications Medications (Trade) Dose Ordered Sig/Iris Route PRN Reason Start Time Stop Time Status Last Admin Dose Admin Iohexol (OMNIPAQUE-300 100ml) 100 ml NOW PRN INJ Radiology Procedure 01/06/20 10:30 01/08/20 10:26 Assessment/Plan Assessment/Plan: Assessment #Colitis --> not septic, wbc wnl, hx of chronic GI issues, Last Colonoscopy was 3 years ago, Hx of Ex Lap s/p Colectomy ( per patient report 2/2 perforated Diverticulitis) #HTN #Renal Nodules, r/o CA, patient w/ established nephro/PCP care #DMII #Chronic Back Pain Plan Appreciate Nephro/PCP and GI Zosyn IV Empirically , Stool Studies , C diff Clear Liquid Diet, Zofran, Morphine IV prn Obtain and reconcile home meds--> for HTN- metoprolol, ASA, Atorvastatin, norvasc, For Pain Gabapentin and Soma Weight based insulin dosing, goal blood sugar less than 180 while in patient, A1C pending Pepcid IV BID DVT ppx MIPS Hospital declaration INPATIENT level of care is warranted for this patient because patient is a 89 year old with who presents with suspicion of . I have a high level of concern because . Patient is at high risk for . Plan of care/treatment include . Patient care is expected to be greater than 2 midnights. OBSERVATION level of care is warranted for this patient. Patient is a 89 year old with who presents with . Patient will be admitted for 1 midnight, but if additional night(s) is/are necessary, patient will be converted to inpatient status for the entire hospitalization Disposition: Once the patient is stable to leave the hospital, I anticipate the patient will likely be discharged to the following environment: Estimated discharge date: I spent 70 minutes on this patient's case, and minutes was dedicated to counseling and/or care coordination. MIPS (Merit-based Incentive Payment System) Applicable CPT: 03650, 85613 CHECK ALL THAT ARE MET: Measure #5 (CHF): All ages. Prescribe JUDE/ARB upon discharge for patients with left ventricular systolic dysfunction. If not, the reason is clearly documented in the medical chart. Measure #8 (CHF): All ages. Prescribe a beta mariana upon discharge for patients with left ventricular systolic dysfunction. If not, the reason is clearly documented in the medical chart. Measure #47 Advance care plan or surrogate decision maker documented in the medical record. Measure #130 The provider has documented, updated, or reviewed the patients current medication list and has documented it in the patients note. Measure #374 (All): Send report to referring provider. Measure #407(Sepsis due to MSSA bacteremia): Age 18+ Patient treated with a beta-lactam antibiotic (Nafcillin, Oxacillin or Cefazolin) as definitive therapy. MEDICAL COMPLEXITY High complexity medical decision making (need 2/3 categories) Problem - need 4 points Acute/new problem with new plan for workup (4 points, 1 max) Acute/new problem without additional workup (3 points, 1 max) Unstable chronic problem actively being managed (2 point each, 2 max) Stable chronic problem actively being managed (1 point each, 2 max) Self-limited/transient process (constipation, muscle ache, etc) (1 point each , 2 max) Data - need 4 points Reviewed labs/imaging studies (1 points, 2 max) Independent review of imaging (EKG, xrays, etc) (2 points, 2 max) Discussed case with consult/other MD/RN (2 points, 2 max) High Risk - qualify if have one of the following: Severe exacerbation of acute problem, acute mental status change, IV narcotics , monitoring drug levels (vancomycin, INR, tacrolimus etc) Bruna Dangelo D.O. January 06, 2020 12:35
--- NOTE | 2020-01-06 13:01 | NUR ---
ED Nurse Note: Dr. Berg at bedside.
[2020-01-06 14:35] VITALS: BP 144/78
--- NOTE | 2020-01-06 16:15 | NUR ---
TRANSFER TO FLOOR: Patient transferred to [facility] as ordered, per Dr. Griffiths. Report given to LUCERO Vega. Belongings and medications given to receiving nurse. Family and or S/O informed of transfer.
--- NOTE | 2020-01-06 16:20 | NUR ---
NURSE NOTES: resident admitted from ED alert and awake x 4, respiration is even and unlabored on room air. pt c/o abdominal pain and discomfort.bilateral lungs sounds are clear to auscultation. no coughing episodes noted. skin is warm and dry to touch. no increased temperature noted at this time. no acute distress noted. Addendum: 01/06/20 at 1926 by Gary Sandoval RN Patient admitted from ED alert and awake x 4, respiration is even and unlabored on room air. pt c/o abdominal pain and discomfort; awaiting MD to put admissions orders. bilateral lungs sounds are clear to auscultation. no coughing episodes noted. skin is warm and dry to touch. no increased temperature noted at this time. pt is made comfortable in bed. bed locked for safety. placed call light within reach, will follow plan of care.
[2020-01-06 16:57] VITALS: BP 164/99
[2020-01-06] MEDS ORDERED: Piperacillin/Tazobactam 3.375 GM in NS 110 ML IVPB SCH (18:15)
[2020-01-06] MEDS ORDERED: Labetalol 5mg/ml 20ml vial IV PRN (18:15)
[2020-01-06] MEDS ORDERED: LORazepam 1mg tab ORAL PRN (18:15)
[2020-01-06] MEDS ORDERED: HydrALAZINE 10mg Tab ORAL PRN (18:15)
[2020-01-06] MEDS ORDERED: Docusate 100mg cap ORAL PRN (18:15)
[2020-01-06] MEDS: HYDROcodone/Acetamin 10/325 tab ORAL PRN (18:22)
[2020-01-06] MEDS: Enoxaparin 40mg Inj SUBQ SCH (18:38)
[2020-01-06] MEDS: Docusate 100mg cap ORAL SCH (18:39)
[2020-01-06] MEDS: Lisinopril 10mg tab ORAL SCH (18:40)
[2020-01-06] MEDS: Aspirin EC 81mg tab ORAL SCH (18:40)
--- NOTE | 2020-01-06 19:26 | NUR ---
HAND-OFF: Report given to Jd.
--- NOTE | 2020-01-06 19:30 | NUR ---
NURSE NOTES: Pt. received from LUCERO Vega. Pt. AAOx4, on room air, no indications of shortness of breath, complaints of pain and will follow up with pain interventions as ordered. IV sites noted left hand 22g and right forearm 20g noted, both saline locked. Bed is low and locked, side rails x2 up, bed alarm active, and call light in reach. Will continue to monitor.
[2020-01-06 20:00] VITALS: BP 142/73
--- NOTE | 2020-01-06 20:14 | NUR ---
NURSE NOTES: Spoke with Bri from pharmacy regarding ordered medications. Message left for Dr. Dangelo to clarify medication orders. Awaiting call back.
--- NOTE | 2020-01-06 20:43 | General Progress Note ---
Assessment/Plan Assessment/Plan: GI CONSULT Dictated Thank you Richard Berg MD Subjective Allergies: Coded Allergies: CEFOTETAN (Verified Allergy, Severe, SHORTNESS OF BREATH, 03/20/12) CEFOTETAN DISODIUM (Unverified Allergy, Severe, 07/29/12) QUINOLONES (Verified Allergy, Mild, Rash, 03/20/12) CEFAZOLIN (Verified Allergy, Unknown, 07/01/09) CEFOTIAM (Verified Allergy, Unknown, Anaphylaxis, 12/07/16) CIPROFLOXACIN (Verified Allergy, Unknown, Hives, 12/07/16) CIPROFLOXACIN HCL (Verified Allergy, Unknown, Hives, 12/07/16) DEXTROSE-WATER (Unverified Allergy, Unknown, 12/07/16) LEVOFLOXACIN (Verified Allergy, Unknown, 12/07/16) Uncoded Allergies: SUFTAN (Allergy, Unknown, 12/07/16) Objective Last 24 Hour Vital Signs Date Time Temp Pulse Resp B/P (MAP) Pulse Ox O2 Delivery O2 Flow Rate FiO2 01/06/20 18:40 164/99 01/06/20 18:40 72 164/99 01/06/20 16:57 98.8 72 20 164/99 (120) 95 01/06/20 16:54 Room Air 01/06/20 16:15 98.4 86 19 144/78 99 Room Air 01/06/20 14:35 98.4 85 20 144/78 98 Room Air 01/06/20 12:44 98.4 01/06/20 11:03 98.4 01/06/20 10:24 85 20 Room Air 01/06/20 10:24 98.4 20 161/95 95 Room Air 01/06/20 10:12 98.4 85 20 161/95 (117) 95 Room Air Laboratory Tests 01/06/20 10:30: White Blood Count 8.6, Red Blood Count 4.91, Hemoglobin 13.1, Hematocrit 39.6, Mean Corpuscular Volume 81, Mean Corpuscular Hemoglobin 26.7L, Mean Corpuscular Hemoglobin Concent 33.0, Red Cell Distribution Width 13.8, Platelet Count 261, Mean Platelet Volume 8.5, Neutrophils (%) (Auto) 61.4, Lymphocytes (%) (Auto) 25.7, Monocytes (%) (Auto) 8.0, Eosinophils (%) (Auto) 3.9H, Basophils (%) (Auto ) 0.9, Urine Color Yellow, Urine Appearance Slightly cloudy, Urine pH 6, Urine Specific [place] 1.020, Urine Protein 2+H, Urine Glucose (UA) Negative, Urine Ketones 2+H, Urine Blood Negative, Urine Nitrite Negative, Urine Bilirubin 1+H, Urine Ictotest Negative, Urine Urobilinogen 4H, Urine Leukocyte Esterase Negative, Urine RBC 2-4H, Urine WBC 2-4, Urine Squamous Epithelial Cells ModerateH, Urine Bacteria Few, Urine Mucus ModerateH, Sodium Level 140, Potassium Level 4.5, Chloride Level 103, Carbon Dioxide Level 24, Anion Gap 13, Blood Urea Nitrogen 12, Creatinine 1.0, Estimat Glomerular Filtration Rate 56.5 , Glucose Level 146H, Hemoglobin A1c 6.0, Calcium Level 9.6, Total Bilirubin 0.4 , Aspartate Amino Transf (AST/SGOT) 42H, Alanine Aminotransferase (ALT/SGPT) 39 , Alkaline Phosphatase 108, Total Protein 7.6, Albumin 3.8, Globulin 3.8, Albumin/Globulin Ratio 1.0, Lipase 47L Height (Feet): 5 Height (Inches): 6.00 Weight (Pounds): 242 Richard Berg MD January 06, 2020 20:43
[2020-01-06] MEDS: Zolpidem 5mg tab ORAL SCH ×2 (21:00→21:43)
[2020-01-06] MEDS ORDERED: Dextrose 5%/Lactated Ringer's 1,000 ML IV SCH (21:15)
--- NOTE | 2020-01-06 21:30 | NUR ---
NURSE NOTES: Orders received from Dr. Dangelo, will carry out and continue plan of care.
[2020-01-06] MEDS: TraZODone 50mg tab ORAL SCH (21:42)
[2020-01-06] MEDS: Atorvastatin 80mg tab ORAL SCH (21:43)
[2020-01-06] MEDS: LR 1000ml 1,000 ML IV SCH (21:46)
[2020-01-06] MEDS: Morphine Sulfate 2mg/ml Inj(IV/IM USE ONLY) IVP PRN (21:47)
[2020-01-06] MEDS: DiphenhydrAMINE 50mg/ml Inj IVP PRN (21:48)
[2020-01-06] MEDS ORDERED: LR 1000ml 1,000 ML IV SCH (22:00)
[2020-01-06] MEDS ORDERED: Aztreonam Inj 1 GM in NS 55 ML IVPB SCH (22:00)
--- NOTE | 2020-01-06 23:15 | Consultation ---
DATE OF CONSULTATION: 01/06/2020 GASTROENTEROLOGY CONSULTATION CHIEF COMPLAINT: I was asked to see this patient by Dr. Traci Griffiths for evaluation of gastrointestinal symptoms. HISTORY OF PRESENT ILLNESS: The patient is a 59-year-old white woman who complains of a 2-day history of abdominal pain, nausea, vomiting, some cramps, and 2 days of diarrhea. The patient's symptoms are somewhat new and abrupt. She had some gastroesophageal reflux-type symptoms several years ago, but this symptom appears to be different. Also, she had a history of gastritis and has had partial colectomy because of that and has a scar on her abdomen. However, the current symptoms are different. She denies any fevers, cough, or shortness of breath. The patient's last endoscopy and colonoscopy were in 2018 where a few polyps were identified and removed. Her partial colectomy was many years ago. PAST MEDICAL HISTORY: History of diverticulosis, history of diverticulitis, status post partial colectomy, status post back surgery in October 2019, diabetes, history of gastroesophageal reflux, hypertension, hyperlipidemia. FAMILY HISTORY: Positive for hypertension and diabetes. SOCIAL HISTORY: The patient does not smoke or drink alcohol. MEDICATIONS: See the chart list for details. REVIEW OF SYSTEMS: Otherwise negative. PHYSICAL EXAMINATION: GENERAL: Pleasant, somewhat obese white woman seen in the emergency room. HEENT: Normocephalic and atraumatic. Sclerae anicteric. Oropharynx clear. NECK: Supple. CHEST: Clear to auscultation. CARDIAC: Regular rate. ABDOMEN: Soft with diffuse tenderness to palpation without guarding or rebound. EXTREMITIES: No edema. LABORATORY DATA: CT scan were noted. ASSESSMENT: This patient presents with acute nausea, vomiting, diarrhea, and abdominal pain. The CT findings were somewhat nonspecific and did not point to any clear GI pathology. This may be a simple case of gi gastroenteritis. However, given the COVID risk and the possibility of presentation, that can be also considered, although less likely without bleeding symptoms. The patient's stool should be checked for pathogens and she should be observed supportively. A COVID swab can also be done to rule out this disorder. Should the patient's symptoms resolve uneventfully, then she would need discharge planning. RECOMMENDATIONS: 1. Check stool for pathogens. 2. IV fluids. 3. Zofran. 4. Proton pump inhibitor. 5. Check for COVID PCR. Thank you for asking me to participate in the care of this patient. Richard Berg M.D. DR: BRENNA JOB#: [id number] CC: AMIE
[2020-01-06] MEDS: Aztreonam Inj 1 GM in NS 55 ML IVPB SCH (23:27)
[2020-01-07] VITALS (7 sets, daily range): BP systolic 118–139; BP diastolic 68–78
[2020-01-07] MEDS: Morphine Sulfate 2mg/ml Inj(IV/IM USE ONLY) IVP PRN ×5 (01:48→20:49)
--- NOTE | 2020-01-07 03:30 | NUR ---
NURSE NOTES: IV inserted in right forearm 20g.
[2020-01-07] MEDS: DiphenhydrAMINE 50mg/ml Inj IVP PRN ×3 (03:48→18:59)
--- NOTE | 2020-01-07 04:45 | NUR ---
NURSE NOTES: Pt. with multiple trips to the bathroom to urinate scant. Reports of nausea, treated with ordered antiemetic. No episodes of emesis and no bowel movements. Educated patient on need to collect stool sample, pt. acknowledged and verbalized understanding. Will continue to monitor.
[2020-01-07] MEDS: Aztreonam Inj 1 GM in NS 55 ML IVPB SCH ×3 (06:07→22:48)
[2020-01-07 06:39] LABS: EOSINOPHILS % (AUTO) 5.9 % (0.0-3.0); HEMATOCRIT 33.1 % (37.0-47.0); HEMOGLOBIN 10.9 G/DL (12.0-16.0); LYMPHOCYTES % (AUTO) 29.6 % (20.0-45.0); MEAN CORPUSCULAR VOLUME 81 FL (80-99); MONOCYTES % (AUTO) 10.8 % (1.0-10.0); NEUTROPHILS % (AUTO) 52.7 % (45.0-75.0); PLATELET COUNT 199 K/UL (150-450); RED BLOOD COUNT 4.08 M/UL (4.20-5.40); RED CELL DISTRIBUTION WIDTH 14.2 % (11.6-14.8); WHITE BLOOD COUNT 6.5 K/UL (4.8-10.8)
[2020-01-07 06:49] LABS: ALANINE AMINOTRANSFERASE 33 U/L (12-78); ALBUMIN 3.1 G/DL (3.4-5.0); ALBUMIN/GLOBULIN RATIO 0.9 (1.0-2.7); ALKALINE PHOSPHATASE 92 U/L (46-116); ANION GAP 9 mmol/L (5-15); ASPARTATE AMINO TRANSFERASE 28 U/L (15-37); BILIRUBIN,TOTAL 0.3 MG/DL (0.2-1.0); BLOOD UREA NITROGEN 10 mg/dL (7-18); CALCIUM 8.9 MG/DL (8.5-10.1); CARBON DIOXIDE 27 MMOL/L (21-32); CHLORIDE 107 MMOL/L (98-107); PHOSPHORUS 4.1 MG/DL (2.5-4.9); POTASSIUM 3.7 MMOL/L (3.5-5.1); SODIUM 143 MMOL/L (136-145)
--- NOTE | 2020-01-07 07:25 | NUR ---
NURSE NOTES: Received report from LUCERO Miles. Patient A&Ox4. On room air, no signs of distress or labored breathing. IV intact, patent, and saline locked. Bed in lowest posiiton with call light in reach. Will continue with plan of care.
--- NOTE | 2020-01-07 07:30 | NUR ---
HAND-OFF: Report given to LUCERO Garcias (Jojo).
--- NOTE | 2020-01-07 07:31 | NUR ---
HAND-OFF: Report given to LUCERO Leung.
[2020-01-07] MEDS: Metoprolol Tartrate 50mg tab ORAL SCH (09:00)
[2020-01-07] MEDS: Lisinopril 10mg tab ORAL SCH (09:00)
[2020-01-07] MEDS: Docusate 100mg cap ORAL SCH ×2 (09:00→18:59)
[2020-01-07] MEDS: Enoxaparin 40mg Inj SUBQ SCH (09:01)
[2020-01-07] MEDS: Aspirin EC 81mg tab ORAL SCH (09:12)
[2020-01-07] MEDS: LR 1000ml 1,000 ML IV SCH (11:43)
--- NOTE | 2020-01-07 12:45 | Internal Med Progress Note ---
Subjective Date of Service: January 07, 2020 Physician Name Bruna Dangelo Attending Physician Traci Griffiths M.D. Current Medications Medications (Trade) Dose Ordered Sig/Iris Route PRN Reason Start Time Stop Time Status Last Admin Dose Admin Acetaminophen (Tylenol) 650 mg Q6H PRN ORAL For Headache 01/06/20 18:15 02/05/20 18:14 Acetaminophen/ Hydrocodone Bitart ([place] 10/325) 1 tab Q4H PRN ORAL For Pain 01/06/20 18:15 01/13/20 18:14 01/06/20 18:22 Amlodipine Besylate (Norvasc) 5 mg DAILY ORAL 01/06/20 18:15 02/05/20 18:14 01/06/20 18:40 Aspirin (Ecotrin) 81 mg DAILY ORAL 01/06/20 18:15 02/20/20 18:14 01/07/20 09:12 Atorvastatin Calcium (Lipitor) 40 mg BEDTIME ORAL 01/06/20 21:00 04/05/20 20:59 01/06/20 21:43 Aztreonam 1 gm/ Sodium Chloride 55 ml @ 110 mls/hr Q8H IVPB 01/06/20 23:00 01/13/20 22:59 01/07/20 06:07 Carisoprodol (Soma) 350 mg BID ORAL 01/06/20 18:15 02/05/20 18:14 01/07/20 09:12 Clonidine HCl (Catapres Tab) 0.1 mg Q4H PRN ORAL SBP > 180 01/06/20 18:15 04/05/20 18:14 Diphenhydramine HCl (Benadryl) 25 mg Q6H PRN IVP Itching 01/06/20 21:15 02/05/20 21:14 01/07/20 10:37 Docusate Sodium (Colace) 100 mg TIDPRN PRN ORAL Constipation 01/06/20 18:15 02/05/20 18:14 Docusate Sodium (Colace) 200 mg BID ORAL 01/06/20 18:15 02/05/20 18:14 01/06/20 18:39 Enoxaparin Sodium (Lovenox) 40 mg DAILY SUBQ 01/06/20 18:15 04/05/20 18:14 01/07/20 09:01 Famotidine (Pepcid I.v.) 20 mg Q12HR IVP 01/06/20 21:00 02/05/20 20:59 01/07/20 09:12 Gabapentin (Neurontin) 800 mg THREE TIMES A DAY ORAL 01/06/20 18:15 02/05/20 18:14 01/07/20 09:12 Hydralazine HCl (Apresoline) 10 mg Q6H PRN ORAL SBP > 160 01/06/20 18:15 04/05/20 18:14 Iohexol (OMNIPAQUE-300 100ml) 100 ml NOW PRN INJ Radiology Procedure 01/06/20 10:30 01/08/20 10:26 Lactated Ringer's 1,000 ml @ 75 mls/hr [id number] IV 01/06/20 21:30 01/07/20 21:29 01/07/20 11:43 Lidocaine (Lidoderm 5% PATCH) 1 patch Q12HR TDERMAL 01/06/20 21:00 04/05/20 20:59 01/07/20 09:14 Lisinopril (ZestriL) 10 mg DAILY ORAL 01/06/20 18:15 02/05/20 18:14 01/06/20 18:40 Lorazepam (Ativan) 1 mg BIDPRN PRN ORAL Agitation 01/06/20 18:15 01/13/20 18:14 Metoprolol Tartrate (Lopressor) 50 mg DAILY ORAL 01/07/20 09:00 04/06/20 08:59 Metronidazole 100 ml @ 100 mls/hr Q8HR IVPB 01/06/20 22:00 01/13/20 21:59 01/07/20 05:06 Morphine Sulfate (Morphine Sulfate) 2 mg Q4H PRN IVP For Pain 01/06/20 18:15 01/13/20 18:14 01/07/20 10:34 Ondansetron HCl (Zofran) 4 mg Q6H PRN IVP Nausea & Vomiting 01/06/20 18:30 02/05/20 18:29 01/07/20 09:31 Trazodone HCl (Desyrel) 50 mg BEDTIME ORAL 01/06/20 21:00 02/05/20 20:59 01/06/20 21:42 Zolpidem Tartrate (Ambien) 5 mg QHS ORAL 01/06/20 21:00 01/13/20 20:59 Allergies: Coded Allergies: CEFOTETAN (Verified Allergy, Severe, SHORTNESS OF BREATH, 03/20/12) CEFOTETAN DISODIUM (Unverified Allergy, Severe, 07/29/12) QUINOLONES (Verified Allergy, Mild, Rash, 03/20/12) CEFAZOLIN (Verified Allergy, Unknown, 07/01/09) CEFOTIAM (Verified Allergy, Unknown, Anaphylaxis, 12/07/16) CIPROFLOXACIN (Verified Allergy, Unknown, Hives, 12/07/16) CIPROFLOXACIN HCL (Verified Allergy, Unknown, Hives, 12/07/16) DEXTROSE-WATER (Unverified Allergy, Unknown, 12/07/16) LEVOFLOXACIN (Verified Allergy, Unknown, 12/07/16) Uncoded Allergies: SUFTAN (Allergy, Unknown, 12/07/16) Subjective Patient still w/ discomfort. Zosyn w/ d/c given allergies. 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 normal Skin: warm/dry Laboratory Tests Test 01/07/20 05:35 White Blood Count 6.5 K/UL (4.8-10.8) Red Blood Count 4.08 M/UL (4.20-5.40) L Hemoglobin 10.9 G/DL (12.0-16.0) L Hematocrit 33.1 % (37.0-47.0) L Mean Corpuscular Volume 81 FL (80-99) Mean Corpuscular Hemoglobin 26.7 PG (27.0-31.0) L Mean Corpuscular Hemoglobin Concent 32.9 G/DL (32.0-36.0) Red Cell Distribution Width 14.2 % (11.6-14.8) Platelet Count 199 K/UL (150-450) Mean Platelet Volume 9.4 FL (6.5-10.1) Neutrophils (%) (Auto) 52.7 % (45.0-75.0) Lymphocytes (%) (Auto) 29.6 % (20.0-45.0) Monocytes (%) (Auto) 10.8 % (1.0-10.0) H Eosinophils (%) (Auto) 5.9 % (0.0-3.0) H Basophils (%) (Auto) 1.0 % (0.0-2.0) Sodium Level 143 MMOL/L (136-145) Potassium Level 3.7 MMOL/L (3.5-5.1) Chloride Level 107 MMOL/L (98-107) Carbon Dioxide Level 27 MMOL/L (21-32) Anion Gap 9 mmol/L (5-15) Blood Urea Nitrogen 10 mg/dL (7-18) Creatinine 1.0 MG/DL (0.55-1.30) Estimat Glomerular Filtration Rate 56.5 mL/min (>60) Glucose Level 105 MG/DL (74-106) Calcium Level 8.9 MG/DL (8.5-10.1) Phosphorus Level 4.1 MG/DL (2.5-4.9) Magnesium Level 1.8 MG/DL (1.8-2.4) Total Bilirubin 0.3 MG/DL (0.2-1.0) Aspartate Amino Transf (AST/SGOT) 28 U/L (15-37) Alanine Aminotransferase (ALT/SGPT) 33 U/L (12-78) Alkaline Phosphatase 92 U/L (46-116) Total Protein 6.4 G/DL (6.4-8.2) Albumin 3.1 G/DL (3.4-5.0) L Globulin 3.3 g/dL Albumin/Globulin Ratio 0.9 (1.0-2.7) L Intake and Output 01/06/20 01/07/20 19:00 07:00 Intake Total 705 ml Balance 705 ml Intake IV Total 705 ml Assessment/Plan Assessment/Plan Assessment #Colitis --> not septic, wbc wnl, hx of chronic GI issues, Last Colonoscopy was 3 years ago, Hx of Ex Lap s/p Colectomy ( per patient report 2/2 perforated Diverticulitis) #HTN #Renal Nodules, r/o CA, patient w/ established nephro/PCP care #DMII #Chronic Back Pain Plan Appreciate Nephro/PCP and GI Stool Studies , C diff pending, COVID pending Clear Liquid Diet, Zofran, Morphine IV prn Obtain and reconcile home meds--> for HTN- metoprolol, ASA, Atorvastatin, norvasc, For Pain Gabapentin and Soma Weight based insulin dosing, goal blood sugar less than 180 while in patient, A1C noted Pepcid IV BID DVT ppx Bruna Dangelo D.O. January 07, 2020 12:45
--- NOTE | 2020-01-07 14:29 | Consultation ---
History of Present Illness General Date patient seen: January 07, 2020 Reason for Hospitalization: Abdominal Pain Present Illness HPI 59-year-old female presents with abdominal pain for 3 days. Pain is sharp, 8 out of 10, nonradiating. Notes vomiting and diarrhea. Denies fevers or chills. Denies runny nose cough congestion. Denies sick contacts or recent travel. States she has had "stomach problems" for years now. States she was recently switched from Protonix to another medication which she states is not helping. No other aggravating relieving factors. Denies chest pain or shortness of breath. Denies any other associated symptoms. States pain is actually ongoing intermittently for 2 weeks got a little bit better but worse for the past 3 days. Is unsure why. Does not want to eat much. Came in for evaluation admitted further care and management. Labs noted CT noted surgery called to evaluate and assist with care. Patient with history of right subcostal for cholecystectomy large midline from prior potential which she states colectomy as well as hernia repair. Allergies: Coded Allergies: CEFOTETAN (Verified Allergy, Severe, SHORTNESS OF BREATH, 03/20/12) CEFOTETAN DISODIUM (Unverified Allergy, Severe, 07/29/12) QUINOLONES (Verified Allergy, Mild, Rash, 03/20/12) CEFAZOLIN (Verified Allergy, Unknown, 07/01/09) CEFOTIAM (Verified Allergy, Unknown, Anaphylaxis, 12/07/16) CIPROFLOXACIN (Verified Allergy, Unknown, Hives, 12/07/16) CIPROFLOXACIN HCL (Verified Allergy, Unknown, Hives, 12/07/16) DEXTROSE-WATER (Unverified Allergy, Unknown, 12/07/16) LEVOFLOXACIN (Verified Allergy, Unknown, 12/07/16) Uncoded Allergies: SUFTAN (Allergy, Unknown, 12/07/16) COVID-19 Screening Contact w/high risk pt: No Recent Travel to affected area: No Experienced COVID-19 symptoms?: No Medication History Scheduled Amlodipine Besylate* (Amlodipine Besylate*), 5 MG ORAL DAILY, (Reported) Aspirin Ec* (Aspirin Ec*), 81 MG PO DAILY, (Reported) Atorvastatin Calcium* (Lipitor*), 40 MG ORAL BEDTIME, (Reported) Baclofen (Baclofen), 20 MG ORAL FOUR TIMES A DAY, (Reported) Carbamide Peroxide (Murine Ear Wax Removal System), 15 ML OT BID Carisoprodol* (Soma*), 350 MG PO BID, (Reported) Clindamycin Hcl (Clindamycin Hcl), 300 MG ORAL FOUR TIMES A DAY Docusate Sodium (Docusate Sodium), 200 MG PO BID, (Reported) Docusate Sodium* (Colace*), 100 MG ORAL TWICE A DAY, (Reported) Enalapril Maleate* (Enalapril Maleate*), 20 MG PO Q12HR, (Reported) Fluconazole (Fluconazole), 150 MG ORAL ONCE Gabapentin* (Gabapentin*), 800 MG ORAL THREE TIMES A DAY, (Reported) Glyburide* (Diabeta*), 2.5 MG ORAL DAILY, (Reported) Hydrocodone Bit/Acetaminophen 10-325* ([place] 10-325*), 1 TAB PO Q6H Lidocaine Patch* (Lidoderm Patch*), 1 PATCH TOPIC Q12HR Lisinopril* (Zestril*), 10 MG ORAL DAILY, (Reported) Metoprolol Tartrate* (Metoprolol Tartrate*), 50 MG ORAL D, (Reported) Miconazole Nitrate/Zinc Ox/Pet (Vusion Ointment), 50 GM TP BID Omeprazole (Prilosec), 20 MG PO DAILY Pantoprazole Sodium (Protonix), 40 MG PO DAILY, (Reported) Phenazopyridine Hcl* (Pyridium*), 100 MG ORAL THREE TIMES A DAY Ranitidine Hcl* (Zantac*), 150 MG PO BID Simvastatin (Zocor), 40 MG PO QHS, (Reported) Sitagliptin Phos/Metformin Hcl (Janumet 50-1,000 Mg Tablet), 1 TAB ORAL TWICE A DAY, (Reported) Sitagliptin Phos/Metformin Hcl (Janumet 50-1,000 Mg Tablet), 1 TAB ORAL TWICE A DAY, (Reported) Trazodone Hcl* (Desyrel*), 50 MG ORAL BEDTIME, (Reported) Zolpidem Tartrate* (Ambien*), 10 MG PO HS, (Reported) Scheduled PRN Diphenhydramine HCl (Diphenhydramine HCl), 50 MG ORAL HS PRN for Itching, ( Reported) Diphenhydramine Hcl* (Benadryl*), 25 MG ORAL Q6H PRN for Itching Hydrocodone Bit/Acetaminophen 5-325* ([place] 5-325*), 1 TAB ORAL Q8HR PRN for For Pain Ibuprofen (Motrin), 600 MG ORAL Q6H PRN for For Pain Ibuprofen (Motrin), 600 MG ORAL Q8H PRN for For Pain Lorazepam* (Ativan*), 1 MG PO for Agitation, (Reported) Methocarbamol* (Robaxin-500*), 500 MG ORAL TID PRN for For Pain Ondansetron Odt* (Zofran Odt*), 4 MG ORAL Q6H PRN for Nausea & Vomiting Oxycodone HCl (Oxycodone HCl), 15 MG ORAL Q4H PRN for For Pain Patient History History Provided By: Patient, Medical Record, PMD Healthcare decision maker Resuscitation status Advanced Directive on File Past Medical/Surgical History Past Medical/Surgical History: (1) Transaminitis (2) Leukocytosis (3) Persistent vomiting (4) Gastroenteritis (5) Osteoarthritis of knee (6) Sepsis (7) Foot fracture (8) Contusion (9) Chronic pain (10) Chronic pain (11) UTI (urinary tract infection) (12) UTI (urinary tract infection) (13) Ankle sprain (14) Fall (15) Strain of knee and leg, right (16) Right shoulder strain (17) Acute abdominal pain (18) Colitis Review of Systems Review of Symptoms General ROS: no weight loss or fever Psychological ROS: no depression or mood changes, no memory loss Ophthalmic ROS: no visual changes or eye irritation ENT ROS: no nasal congestion, hearing loss, dizziness Allergy and Immunology ROS: no allergic symptoms or urticaria Hematological and Lymphatic ROS: no swollen glands, unusual bleeding or bruising Endocrine ROS: no polyuria, polydipsia, weight changes, temperature intolerance Respiratory ROS: no cough, shortness of breath, or wheezing Cardiovascular ROS: no chest pain or dyspnea on exertion Gastrointestinal ROS: ++ abdominal pain, bright red blood in stool. Musculoskeletal ROS: no myalgias or arthralgias Neurological ROS: no TIA or stroke symptoms Dermatological ROS: no new or changing skin lesions, rashes or pruritis Physical Exam Physical Exam General appearance: alert, cooperative, no distress, appears stated age Head: Normocephalic, without obvious abnormality, atraumatic Eyes: conjunctivae/corneas clear. PERRL, EOM's intact. Fundi benign Throat: Lips, mucosa, and tongue normal. Teeth and gums normal Neck: supple, symmetrical, trachea midline, no adenopathy, thyroid: not enlarged, symmetric, no tenderness/mass/nodules, no carotid bruit and no JVD Lungs: clear to auscultation bilaterally Heart: regular rate and rhythm, S1, S2 normal, no murmur, click, rub or gallop Abdomen: soft, mildly-tender. Bowel sounds normal. No masses, no organomegaly prior midline and right subcostal healed Extremities: extremities normal, atraumatic, no cyanosis or edema Pulses: 2+ and symmetric Skin: Skin color, texture, turgor normal. No rashes or lesions Neurologic: Grossly normal Last 24 Hour Vital Signs Date Time Temp Pulse Resp B/P (MAP) Pulse Ox O2 Delivery O2 Flow Rate FiO2 01/07/20 12:00 98.2 87 18 139/71 (93) 94 01/07/20 09:00 Room Air 01/07/20 09:00 87 118/73 01/07/20 09:00 118/73 01/07/20 09:00 87 118/73 01/07/20 08:00 97.5 87 20 118/73 (88) 95 01/07/20 04:00 98.0 80 19 122/70 (87) 97 01/07/20 00:00 98.8 78 19 134/68 (90) 95 01/06/20 22:17 98.8 01/06/20 21:00 Room Air 01/06/20 20:00 98.2 82 19 142/73 (96) 96 01/06/20 18:40 164/99 01/06/20 18:40 72 164/99 01/06/20 16:57 98.8 72 20 164/99 (120) 95 01/06/20 16:54 Room Air 01/06/20 16:15 98.4 86 19 144/78 99 Room Air 01/06/20 14:35 98.4 85 20 144/78 98 Room Air Intake and Output 01/06/20 01/07/20 19:00 07:00 Intake Total 705 ml Balance 705 ml Intake IV Total 705 ml Laboratory Tests Test 01/07/20 05:35 White Blood Count 6.5 K/UL (4.8-10.8) Red Blood Count 4.08 M/UL (4.20-5.40) L Hemoglobin 10.9 G/DL (12.0-16.0) L Hematocrit 33.1 % (37.0-47.0) L Mean Corpuscular Volume 81 FL (80-99) Mean Corpuscular Hemoglobin 26.7 PG (27.0-31.0) L Mean Corpuscular Hemoglobin Concent 32.9 G/DL (32.0-36.0) Red Cell Distribution Width 14.2 % (11.6-14.8) Platelet Count 199 K/UL (150-450) Mean Platelet Volume 9.4 FL (6.5-10.1) Neutrophils (%) (Auto) 52.7 % (45.0-75.0) Lymphocytes (%) (Auto) 29.6 % (20.0-45.0) Monocytes (%) (Auto) 10.8 % (1.0-10.0) H Eosinophils (%) (Auto) 5.9 % (0.0-3.0) H Basophils (%) (Auto) 1.0 % (0.0-2.0) Sodium Level 143 MMOL/L (136-145) Potassium Level 3.7 MMOL/L (3.5-5.1) Chloride Level 107 MMOL/L (98-107) Carbon Dioxide Level 27 MMOL/L (21-32) Anion Gap 9 mmol/L (5-15) Blood Urea Nitrogen 10 mg/dL (7-18) Creatinine 1.0 MG/DL (0.55-1.30) Estimat Glomerular Filtration Rate 56.5 mL/min (>60) Glucose Level 105 MG/DL (74-106) Calcium Level 8.9 MG/DL (8.5-10.1) Phosphorus Level 4.1 MG/DL (2.5-4.9) Magnesium Level 1.8 MG/DL (1.8-2.4) Total Bilirubin 0.3 MG/DL (0.2-1.0) Aspartate Amino Transf (AST/SGOT) 28 U/L (15-37) Alanine Aminotransferase (ALT/SGPT) 33 U/L (12-78) Alkaline Phosphatase 92 U/L (46-116) Total Protein 6.4 G/DL (6.4-8.2) Albumin 3.1 G/DL (3.4-5.0) L Globulin 3.3 g/dL Albumin/Globulin Ratio 0.9 (1.0-2.7) L Height (Feet): 5 Height (Inches): 6.00 Weight (Pounds): 242 Medications Current Medications Medications (Trade) Dose Ordered Sig/Iris Route PRN Reason Start Time Stop Time Status Last Admin Dose Admin Acetaminophen (Tylenol) 650 mg Q6H PRN ORAL For Headache 01/06/20 18:15 02/05/20 18:14 Acetaminophen/ Hydrocodone Bitart ([place] 10325) 1 tab Q4H PRN ORAL For Pain 01/06/20 18:15 01/13/20 18:14 01/06/20 18:22 Amlodipine Besylate (Norvasc) 5 mg DAILY ORAL 01/06/20 18:15 02/05/20 18:14 01/06/20 18:40 Aspirin (Ecotrin) 81 mg DAILY ORAL 01/06/20 18:15 02/20/20 18:14 01/07/20 09:12 Atorvastatin Calcium (Lipitor) 40 mg BEDTIME ORAL 01/06/20 21:00 04/05/20 20:59 01/06/20 21:43 Aztreonam 1 gm/ Sodium Chloride 55 ml @ 110 mls/hr Q8H IVPB 01/06/20 23:00 01/13/20 22:59 01/07/20 06:07 Carisoprodol (Soma) 350 mg BID ORAL 01/06/20 18:15 02/05/20 18:14 01/07/20 09:12 Clonidine HCl (Catapres Tab) 0.1 mg Q4H PRN ORAL SBP > 180 01/06/20 18:15 04/05/20 18:14 Diphenhydramine HCl (Benadryl) 25 mg Q6H PRN IVP Itching 01/06/20 21:15 02/05/20 21:14 01/07/20 10:37 Docusate Sodium (Colace) 100 mg TIDPRN PRN ORAL Constipation 01/06/20 18:15 02/05/20 18:14 Docusate Sodium (Colace) 200 mg BID ORAL 01/06/20 18:15 02/05/20 18:14 01/06/20 18:39 Enoxaparin Sodium (Lovenox) 40 mg DAILY SUBQ 01/06/20 18:15 04/05/20 18:14 01/07/20 09:01 Famotidine (Pepcid I.v.) 20 mg Q12HR IVP 01/06/20 21:00 02/05/20 20:59 01/07/20 09:12 Gabapentin (Neurontin) 800 mg THREE TIMES A DAY ORAL 01/06/20 18:15 02/05/20 18:14 01/07/20 13:56 Hydralazine HCl (Apresoline) 10 mg Q6H PRN ORAL SBP > 160 01/06/20 18:15 04/05/20 18:14 Iohexol (OMNIPAQUE-300 100ml) 100 ml NOW PRN INJ Radiology Procedure 01/06/20 10:30 01/08/20 10:26 Lactated Ringer's 1,000 ml @ 75 mls/hr [id number] IV 01/06/20 21:30 01/07/20 21:29 01/07/20 11:43 Lidocaine (Lidoderm 5% PATCH) 1 patch Q12HR TDERMAL 01/06/20 21:00 04/05/20 20:59 01/07/20 09:14 Lisinopril (ZestriL) 10 mg DAILY ORAL 01/06/20 18:15 02/05/20 18:14 01/06/20 18:40 Lorazepam (Ativan) 1 mg BIDPRN PRN ORAL Agitation 01/06/20 18:15 01/13/20 18:14 Metoprolol Tartrate (Lopressor) 50 mg DAILY ORAL 01/07/20 09:00 04/06/20 08:59 Metronidazole 100 ml @ 100 mls/hr Q8HR IVPB 01/06/20 22:00 01/13/20 21:59 01/07/20 13:56 Morphine Sulfate (Morphine Sulfate) 2 mg Q4H PRN IVP For Pain 01/06/20 18:15 01/13/20 18:14 01/07/20 10:34 Ondansetron HCl (Zofran) 4 mg Q6H PRN IVP Nausea & Vomiting 01/06/20 18:30 02/05/20 18:29 01/07/20 09:31 Trazodone HCl (Desyrel) 50 mg BEDTIME ORAL 01/06/20 21:00 02/05/20 20:59 01/06/20 21:42 Zolpidem Tartrate (Ambien) 5 mg QHS ORAL 01/06/20 21:00 01/13/20 20:59 Assessment/Plan Problem List: (1) Colitis Assessment & Plan: ABDOMEN: Liver: Hemangioma again noted in the right liver. Stable small hypodensity more inferiorly in the right liver is too small to definitively characterize but may represent another hemangioma. Hepatomegaly. Gallbladder and bile ducts: Unremarkable. No calcified stones. No ductal dilation. Pancreas: Atrophy of the pancreas. No ductal dilation. Spleen: Splenule. Mild splenomegaly. Adrenals: Nonspecific stable bilateral adrenal nodules. Kidneys and ureters: Increased prominence of small hypodensities in the inferior right kidney which measure greater than simple fluid attenuation and are nonspecific. These lesions measure approximately 1.6 cm and 1 cm. Further evaluation could be performed with ultrasound. Punctate nonobstructing right renal stone. No hydronephrosis or ureteral stone. Nonspecific mild bilateral perinephric fat stranding. Lesion off the inferior left kidney seen on prior exam in 2014 is not appreciated on this exam. Stomach and bowel: Prominence of the kirkpatrick of the colon may be secondary to under distention, but element of colitis is not excluded. Prominence of the wall of the stomach may be secondary to under distention versus gastritis. Diverticulosis without evidence of diverticulitis. No bowel obstruction. PELVIS: Appendix: Appendix is not visualized, but no CT evidence of acute appendicitis. Bladder: Decompressed bladder limits evaluation. Reproductive: Prior hysterectomy. ABDOMEN and PELVIS: Intraperitoneal space: Unremarkable. No free air. No significant fluid collection. Bones/joints: Probable small bone islands in the pelvic bones. Degenerative changes of the spine. No acute fracture. No dislocation. Soft tissues: Probable left lateral ventral hernia repair with mild protrusion of bowel loops in this region. There is also protrusion of bowel loops in the lower midline abdomen with evidence of prior hernia repair. Vasculature: Atherosclerotic changes of the vasculature. No aortic aneurysm or dissection. Lymph nodes: Unremarkable. No enlarged lymph nodes. IMPRESSION: 1. Nonspecific stable bilateral adrenal nodules. 2. Increased prominence of small hypodensities in the inferior right kidney which measure greater than simple fluid attenuation and are nonspecific. These lesions measure approximately 1.6 cm and 1 cm. Further evaluation could be performed with ultrasound. Neoplasm such as RCC is not excluded. 3. Punctate nonobstructing right renal stone. No hydronephrosis or ureteral stone. 4. Prominence of the kirkpatrick of the colon may be secondary to under distention, but element of colitis is not excluded. ICD Codes: K52.9 - Noninfective gastroenteritis and colitis, unspecified SNOMED: [id number] (2) Acute abdominal pain Assessment & Plan: Patient presents with 2 weeks of intermittent abdominal discomfort and worsening abdominal pain for the past 3 days. Currently no nausea vomiting fever chills. CT noted no acute intra-abdominal pathology clearly identified currently Abdominal exam with discomfort mild distention positive bowel sounds but no peritonitis No leukocytosis, no shift, possible UTI IV antibiotics per as per infectious disease IV fluids Okay for diet from surgical standpoint patient passing flatus We will follow with serial abdominal examinations no acute surgical intervention planned thank you for let me participate in patient's care Norberto Marie January 07, 2020 14:29
--- NOTE | 2020-01-07 20:00 | NUR ---
NURSE NOTES: Received patient awake, alert, verbal, resting in bed, comfortable.
--- NOTE | 2020-01-07 20:08 | General Progress Note ---
Assessment/Plan Assessment/Plan: Assessment - diarrhea - abd pain - diverticulosis - anemia Recommendations - f/u stool tests - IVF - follow labs and exam Subjective Allergies: Coded Allergies: CEFOTETAN (Verified Allergy, Severe, SHORTNESS OF BREATH, 03/20/12) CEFOTETAN DISODIUM (Unverified Allergy, Severe, 07/29/12) QUINOLONES (Verified Allergy, Mild, Rash, 03/20/12) CEFAZOLIN (Verified Allergy, Unknown, 07/01/09) CEFOTIAM (Verified Allergy, Unknown, Anaphylaxis, 12/07/16) CIPROFLOXACIN (Verified Allergy, Unknown, Hives, 12/07/16) CIPROFLOXACIN HCL (Verified Allergy, Unknown, Hives, 12/07/16) DEXTROSE-WATER (Unverified Allergy, Unknown, 12/07/16) LEVOFLOXACIN (Verified Allergy, Unknown, 12/07/16) Uncoded Allergies: SUFTAN (Allergy, Unknown, 12/07/16) Subjective Feels better no vomiting no BM yet Objective Last 24 Hour Vital Signs Date Time Temp Pulse Resp B/P (MAP) Pulse Ox O2 Delivery O2 Flow Rate FiO2 01/07/20 16:00 97.9 58 16 138/70 (92) 97 01/07/20 12:00 98.2 87 18 139/71 (93) 94 01/07/20 09:00 Room Air 01/07/20 09:00 87 118/73 01/07/20 09:00 118/73 01/07/20 09:00 87 118/73 01/07/20 08:00 97.5 87 20 118/73 (88) 95 01/07/20 04:00 98.0 80 19 122/70 (87) 97 01/07/20 00:00 98.8 78 19 134/68 (90) 95 01/06/20 22:17 98.8 01/06/20 21:00 Room Air Intake and Output 01/06/20 01/07/20 19:00 07:00 Intake Total 705 ml Balance 705 ml Intake IV Total 705 ml Laboratory Tests 01/07/20 05:35: White Blood Count 6.5, Red Blood Count 4.08L, Hemoglobin 10.9L, Hematocrit 33.1L , Mean Corpuscular Volume 81, Mean Corpuscular Hemoglobin 26.7L, Mean Corpuscular Hemoglobin Concent 32.9, Red Cell Distribution Width 14.2, Platelet Count 199, Mean Platelet Volume 9.4, Neutrophils (%) (Auto) 52.7, Lymphocytes (% ) (Auto) 29.6, Monocytes (%) (Auto) 10.8H, Eosinophils (%) (Auto) 5.9H, Basophils (%) (Auto) 1.0, Sodium Level 143, Potassium Level 3.7, Chloride Level 107, Carbon Dioxide Level 27, Anion Gap 9, Blood Urea Nitrogen 10, Creatinine 1.0, Estimat Glomerular Filtration Rate 56.5, Glucose Level 105, Calcium Level 8.9, Phosphorus Level 4.1, Magnesium Level 1.8, Total Bilirubin 0.3, Aspartate Amino Transf (AST/SGOT) 28, Alanine Aminotransferase (ALT/SGPT) 33, Alkaline Phosphatase 92, Total Protein 6.4, Albumin 3.1L, Globulin 3.3, Albumin/Globulin Ratio 0.9L Height (Feet): 5 Height (Inches): 6.00 Weight (Pounds): 242 Objective WDWN obese WW NCAT supple CTA RR abd soft , (+) diffuse TTP no edema Richard Berg MD January 07, 2020 20:08
[2020-01-07] MEDS: TraZODone 50mg tab ORAL SCH (20:48)
[2020-01-07] MEDS: Atorvastatin 80mg tab ORAL SCH (20:48)
[2020-01-07] MEDS: Zolpidem 5mg tab ORAL SCH (20:48)
[2020-01-08] MEDS: Morphine Sulfate 2mg/ml Inj(IV/IM USE ONLY) IVP PRN ×4 (03:35→20:45)
[2020-01-08 03:45] VITALS: BP 120/73
[2020-01-08] MEDS: DiphenhydrAMINE 50mg/ml Inj IVP PRN ×3 (05:22→20:44)
[2020-01-08] MEDS: Aztreonam Inj 1 GM in NS 55 ML IVPB SCH ×3 (06:28→22:44)
--- NOTE | 2020-01-08 07:50 | NUR ---
NURSE NOTES: Patient is in bed awake and able to verbalize needs. Stable. Patient is asking for pain medication, will administer as ordered. Plan of care discussed with patient, verbalized understanding. Patient instructed to use call light for assistance, verbalized understanding. All safety measures provided. WIll continue to monitor.
[2020-01-08 08:00] VITALS: BP 128/70
[2020-01-08] MEDS: Enoxaparin 40mg Inj SUBQ SCH (08:23)
[2020-01-08] MEDS: Aspirin EC 81mg tab ORAL SCH (08:26)
[2020-01-08] MEDS: Docusate 100mg cap ORAL SCH ×2 (08:26→18:46)
[2020-01-08] MEDS: Metoprolol Tartrate 50mg tab ORAL SCH (08:26)
[2020-01-08] MEDS: Lisinopril 10mg tab ORAL SCH (08:27)
[2020-01-08] MEDS: Pantoprazole Inj IVP SCH ×2 (09:00→20:44)
--- NOTE | 2020-01-08 09:00 | General Progress Note ---
Assessment/Plan Assessment/Plan: Assessment/Plan Assessment/Plan: Assessment - diarrhea - abd pain - diverticulosis - anemia -sig GERd and esophageal problems per patient -Anemia Recommendations - f/u stool tests - IVF - follow labs and exam -add ppi and baclofen -advance diet to soft diet -GI procedures on hold pending COVID test Subjective ROS Limited/Unobtainable: Yes Allergies: Coded Allergies: CEFOTETAN (Verified Allergy, Severe, SHORTNESS OF BREATH, 03/20/12) CEFOTETAN DISODIUM (Unverified Allergy, Severe, 07/29/12) QUINOLONES (Verified Allergy, Mild, Rash, 03/20/12) CEFAZOLIN (Verified Allergy, Unknown, 07/01/09) CEFOTIAM (Verified Allergy, Unknown, Anaphylaxis, 12/07/16) CIPROFLOXACIN (Verified Allergy, Unknown, Hives, 12/07/16) CIPROFLOXACIN HCL (Verified Allergy, Unknown, Hives, 12/07/16) DEXTROSE-WATER (Unverified Allergy, Unknown, 12/07/16) LEVOFLOXACIN (Verified Allergy, Unknown, 12/07/16) Uncoded Allergies: SUFTAN (Allergy, Unknown, 12/07/16) Objective Last 24 Hour Vital Signs Date Time Temp Pulse Resp B/P (MAP) Pulse Ox O2 Delivery O2 Flow Rate FiO2 01/08/20 08:27 128/70 01/08/20 08:27 71 128/70 01/08/20 08:26 71 128/70 01/08/20 04:05 97.5 01/08/20 03:45 97.5 76 18 120/73 (89) 95 01/07/20 23:53 98.5 55 21 128/78 (95) 90 01/07/20 20:10 Room Air 01/07/20 20:00 98.1 68 20 133/72 (92) 92 01/07/20 16:00 97.9 58 16 138/70 (92) 97 01/07/20 12:00 98.2 87 18 139/71 (93) 94 01/07/20 09:00 Room Air 01/07/20 09:00 87 118/73 01/07/20 09:00 118/73 01/07/20 09:00 87 118/73 Intake and Output 01/07/20 01/08/20 19:00 07:00 Intake Total 300 ml 555 ml Balance 300 ml 555 ml Intake Oral 300 ml IV Total 300 ml 255 ml # Voids 3 Height (Feet): 5 Height (Inches): 6.00 Weight (Pounds): 242 General Appearance: alert EENT: normal ENT inspection Neck: supple Cardiovascular: normal peripheral pulses Respiratory/Chest: lungs clear Abdomen: normal bowel sounds, non tender, soft Extremities: non-tender Sunny Brandt MD January 08, 2020 09:00
--- NOTE | 2020-01-08 11:22 | Surgery Progress Note ---
Surgery Progress Note Subjective Symptoms: improved Additional Comments no acute events resting comfortable Objective Last 24 Hour Vital Signs Date Time Temp Pulse Resp B/P (MAP) Pulse Ox O2 Delivery O2 Flow Rate FiO2 01/08/20 09:00 Room Air 01/08/20 08:27 128/70 01/08/20 08:27 71 128/70 01/08/20 08:26 71 128/70 01/08/20 08:00 97.7 71 18 128/70 (89) 95 01/08/20 04:05 97.5 01/08/20 03:45 97.5 76 18 120/73 (89) 95 01/07/20 23:53 98.5 55 21 128/78 (95) 90 01/07/20 20:10 Room Air 01/07/20 20:00 98.1 68 20 133/72 (92) 92 01/07/20 16:00 97.9 58 16 138/70 (92) 97 01/07/20 12:00 98.2 87 18 139/71 (93) 94 I&O Intake and Output 01/07/20 01/08/20 19:00 07:00 Intake Total 300 ml 555 ml Balance 300 ml 555 ml Intake Oral 300 ml IV Total 300 ml 255 ml # Voids 3 Cardiovascular: RSR Respiratory: clear Abdomen: soft, non-tender, present bowel sounds, non-distended Extremities: no edema, no tenderness, no cyanosis Plan Problems: (1) Colitis Assessment & Plan: ABDOMEN: Liver: Hemangioma again noted in the right liver. Stable small hypodensity more inferiorly in the right liver is too small to definitively characterize but may represent another hemangioma. Hepatomegaly. Gallbladder and bile ducts: Unremarkable. No calcified stones. No ductal dilation. Pancreas: Atrophy of the pancreas. No ductal dilation. Spleen: Splenule. Mild splenomegaly. Adrenals: Nonspecific stable bilateral adrenal nodules. Kidneys and ureters: Increased prominence of small hypodensities in the inferior right kidney which measure greater than simple fluid attenuation and are nonspecific. These lesions measure approximately 1.6 cm and 1 cm. Further evaluation could be performed with ultrasound. Punctate nonobstructing right renal stone. No hydronephrosis or ureteral stone. Nonspecific mild bilateral perinephric fat stranding. Lesion off the inferior left kidney seen on prior exam in 2014 is not appreciated on this exam. Stomach and bowel: Prominence of the kirkpatrick of the colon may be secondary to under distention, but element of colitis is not excluded. Prominence of the wall of the stomach may be secondary to under distention versus gastritis. Diverticulosis without evidence of diverticulitis. No bowel obstruction. PELVIS: Appendix: Appendix is not visualized, but no CT evidence of acute appendicitis. Bladder: Decompressed bladder limits evaluation. Reproductive: Prior hysterectomy. ABDOMEN and PELVIS: Intraperitoneal space: Unremarkable. No free air. No significant fluid collection. Bones/joints: Probable small bone islands in the pelvic bones. Degenerative changes of the spine. No acute fracture. No dislocation. Soft tissues: Probable left lateral ventral hernia repair with mild protrusion of bowel loops in this region. There is also protrusion of bowel loops in the lower midline abdomen with evidence of prior hernia repair. Vasculature: Atherosclerotic changes of the vasculature. No aortic aneurysm or dissection. Lymph nodes: Unremarkable. No enlarged lymph nodes. IMPRESSION: 1. Nonspecific stable bilateral adrenal nodules. 2. Increased prominence of small hypodensities in the inferior right kidney which measure greater than simple fluid attenuation and are nonspecific. These lesions measure approximately 1.6 cm and 1 cm. Further evaluation could be performed with ultrasound. Neoplasm such as RCC is not excluded. 3. Punctate nonobstructing right renal stone. No hydronephrosis or ureteral stone. 4. Prominence of the kirkpatrick of the colon may be secondary to under distention, but element of colitis is not excluded. (2) Acute abdominal pain Assessment & Plan: Patient presents with 2 weeks of intermittent abdominal discomfort and worsening abdominal pain for the past 3 days. Currently no nausea vomiting fever chills. CT noted no acute intra-abdominal pathology clearly identified currently Abdominal exam with discomfort mild distention positive bowel sounds but no peritonitis No leukocytosis, no shift, possible UTI IV antibiotics per as per infectious disease IV fluids Okay for diet from surgical standpoint patient passing flatus We will follow with serial abdominal examinations no acute surgical intervention planned thank you for let me participate in patient's care Norberto Marie January 08, 2020 11:22
--- NOTE | 2020-01-08 11:32 | NUR ---
HAND-OFF: Report given to Dale BARKER. Patient is stable.
[2020-01-08 12:00] VITALS: BP 121/59
--- NOTE | 2020-01-08 14:36 | Internal Med Progress Note ---
Subjective Date of Service: January 08, 2020 Physician Name Bruna Dangelo Attending Physician Traci Griffiths M.D. Current Medications Medications (Trade) Dose Ordered Sig/Iris Route PRN Reason Start Time Stop Time Status Last Admin Dose Admin Acetaminophen (Tylenol) 650 mg Q6H PRN ORAL For Headache 01/06/20 18:15 02/05/20 18:14 Acetaminophen/ Hydrocodone Bitart ([place] 10/325) 1 tab Q4H PRN ORAL For Pain 01/06/20 18:15 01/13/20 18:14 01/06/20 18:22 Amlodipine Besylate (Norvasc) 5 mg DAILY ORAL 01/06/20 18:15 02/05/20 18:14 01/08/20 08:27 Aspirin (Ecotrin) 81 mg DAILY ORAL 01/06/20 18:15 02/20/20 18:14 01/08/20 08:26 Atorvastatin Calcium (Lipitor) 40 mg BEDTIME ORAL 01/06/20 21:00 04/05/20 20:59 01/07/20 20:48 Aztreonam 1 gm/ Sodium Chloride 55 ml @ 110 mls/hr Q8H IVPB 01/06/20 23:00 01/13/20 22:59 01/08/20 06:28 Baclofen (Lioresal) 10 mg BEDTIME ORAL 01/08/20 21:00 02/07/20 20:59 Carisoprodol (Soma) 350 mg BID ORAL 01/06/20 18:15 02/05/20 18:14 01/08/20 08:26 Clonidine HCl (Catapres Tab) 0.1 mg Q4H PRN ORAL SBP > 180 01/06/20 18:15 04/05/20 18:14 Diphenhydramine HCl (Benadryl) 25 mg Q6H PRN IVP Itching 01/06/20 21:15 02/05/20 21:14 01/08/20 13:35 Docusate Sodium (Colace) 100 mg TIDPRN PRN ORAL Constipation 01/06/20 18:15 02/05/20 18:14 Docusate Sodium (Colace) 200 mg BID ORAL 01/06/20 18:15 02/05/20 18:14 01/08/20 08:26 Enoxaparin Sodium (Lovenox) 40 mg DAILY SUBQ 01/06/20 18:15 04/05/20 18:14 01/08/20 08:23 Gabapentin (Neurontin) 800 mg THREE TIMES A DAY ORAL 01/06/20 18:15 02/05/20 18:14 01/08/20 13:34 Hydralazine HCl (Apresoline) 10 mg Q6H PRN ORAL SBP > 160 01/06/20 18:15 04/05/20 18:14 Lidocaine (Lidoderm 5% PATCH) 1 patch Q12HR TDERMAL 01/06/20 21:00 04/05/20 20:59 01/08/20 08:25 Lisinopril (ZestriL) 10 mg DAILY ORAL 01/06/20 18:15 02/05/20 18:14 01/08/20 08:27 Lorazepam (Ativan) 1 mg BIDPRN PRN ORAL Agitation 01/06/20 18:15 01/13/20 18:14 Metoprolol Tartrate (Lopressor) 50 mg DAILY ORAL 01/07/20 09:00 04/06/20 08:59 01/08/20 08:26 Metronidazole 100 ml @ 100 mls/hr Q8HR IVPB 01/06/20 22:00 01/13/20 21:59 01/08/20 13:35 Morphine Sulfate (Morphine Sulfate) 2 mg Q4H PRN IVP For Pain 01/06/20 18:15 01/13/20 18:14 01/08/20 13:36 Ondansetron HCl (Zofran) 4 mg Q6H PRN IVP Nausea & Vomiting 01/06/20 18:30 02/05/20 18:29 01/08/20 08:26 Pantoprazole (Protonix) 40 mg EVERY 12 HOURS IVP 01/08/20 09:00 02/07/20 08:59 01/08/20 09:00 Trazodone HCl (Desyrel) 50 mg BEDTIME ORAL 01/06/20 21:00 02/05/20 20:59 01/07/20 20:48 Zolpidem Tartrate (Ambien) 5 mg QHS ORAL 01/06/20 21:00 01/13/20 20:59 01/07/20 20:48 Allergies: Coded Allergies: CEFOTETAN (Verified Allergy, Severe, SHORTNESS OF BREATH, 03/20/12) CEFOTETAN DISODIUM (Unverified Allergy, Severe, 07/29/12) QUINOLONES (Verified Allergy, Mild, Rash, 03/20/12) CEFAZOLIN (Verified Allergy, Unknown, 07/01/09) CEFOTIAM (Verified Allergy, Unknown, Anaphylaxis, 12/07/16) CIPROFLOXACIN (Verified Allergy, Unknown, Hives, 12/07/16) CIPROFLOXACIN HCL (Verified Allergy, Unknown, Hives, 12/07/16) DEXTROSE-WATER (Unverified Allergy, Unknown, 12/07/16) LEVOFLOXACIN (Verified Allergy, Unknown, 12/07/16) Uncoded Allergies: SUFTAN (Allergy, Unknown, 12/07/16) Subjective Await COVID. At this point, I presume symptoms are related to severe gastritis, will hold aspirin and hoping patient will obtain relief w/ Protonix IV BID. Anticipate EGD pending COVID results. Appreciate consultants. Objective Last Vital Signs Date Time Temp Pulse Resp B/P (MAP) Pulse Ox O2 Delivery O2 Flow Rate FiO2 01/08/20 12:00 96.8 57 18 121/59 (79) 93 01/08/20 09:00 Room Air Intake and Output 01/07/20 01/08/20 18:59 06:59 Intake Total 375 ml 555 ml Balance 375 ml 555 ml Intake Oral 300 ml IV Total 375 ml 255 ml # Voids 3 Objective General Appearance: WD/WN, no apparent distress Cardiovascular: normal rate, regular rhythm Respiratory/Chest: lungs clear, normal breath sounds, no respiratory distress Abdomen: soft, other - mildly TTP Extremities: normal range of motion Neurologic: turn operator II-XII grossly normal Skin: warm/dry Assessment/Plan Assessment/Plan Assessment #R/O Gastritis; high suspicion, anticipate EGD pending COVID results #Colitis --> not septic, wbc wnl, hx of chronic GI issues, Last Colonoscopy was 3 years ago, Hx of Ex Lap s/p Colectomy ( per patient report 2/2 perforated Diverticulitis) #HTN #Renal Nodules, r/o CA, patient w/ established nephro/PCP care #DMII #Chronic Back Pain Plan Appreciate Nephro/PCP and GI Stool Studies , C diff pending, COVID pending Clear Liquid Diet, Zofran, Morphine IV prn Obtain and reconcile home meds--> for HTN- metoprolol,Atorvastatin, norvasc, For Pain Gabapentin and Soma Hold ASA for now given concern for gastritis Weight based insulin dosing, goal blood sugar less than 180 while in patient, A1C noted Protonix IV BID DVT ppx Bruna Dangelo D.O. January 08, 2020 14:36
[2020-01-08 16:00] VITALS: BP 106/54
--- NOTE | 2020-01-08 16:01 | NUR ---
NURSE NOTES: nurse tried to collect blood for lab, tried 5 times unsuccessful. Contacted lab, spoken to Leyla RUBIO said she'll try later.
[2020-01-08 16:58] LABS: BASOPHILS % (AUTO) 1.2 % (0.0-2.0); EOSINOPHILS % (AUTO) 8.6 % (0.0-3.0); HEMATOCRIT 34.8 % (37.0-47.0); HEMOGLOBIN 11.5 G/DL (12.0-16.0); LYMPHOCYTES % (AUTO) 22.7 % (20.0-45.0); MEAN CORPUSCULAR VOLUME 81 FL (80-99); MONOCYTES % (AUTO) 10.1 % (1.0-10.0); NEUTROPHILS % (AUTO) 57.4 % (45.0-75.0); PLATELET COUNT 204 K/UL (150-450); RED BLOOD COUNT 4.28 M/UL (4.20-5.40); RED CELL DISTRIBUTION WIDTH 13.5 % (11.6-14.8); WHITE BLOOD COUNT 6.9 K/UL (4.8-10.8)
[2020-01-08 17:11] LABS: ALANINE AMINOTRANSFERASE 29 U/L (12-78); ALBUMIN 3.1 G/DL (3.4-5.0); ALKALINE PHOSPHATASE 93 U/L (46-116); ANION GAP 9 mmol/L (5-15); ASPARTATE AMINO TRANSFERASE 32 U/L (15-37); BILIRUBIN,TOTAL 0.3 MG/DL (0.2-1.0); BLOOD UREA NITROGEN 13 mg/dL (7-18); CALCIUM 8.9 MG/DL (8.5-10.1); CARBON DIOXIDE 27 MMOL/L (21-32); CHLORIDE 106 MMOL/L (98-107); PHOSPHORUS 3.9 MG/DL (2.5-4.9); POTASSIUM 3.6 MMOL/L (3.5-5.1); SODIUM 141 MMOL/L (136-145)
--- NOTE | 2020-01-08 19:27 | NUR ---
HAND-OFF: Report given to LUCERO James.
[2020-01-08 20:00] VITALS: BP 137/64
[2020-01-08] MEDS: TraZODone 50mg tab ORAL SCH (20:43)
[2020-01-08] MEDS: Atorvastatin 80mg tab ORAL SCH (20:44)
[2020-01-08] MEDS: Zolpidem 5mg tab ORAL SCH (20:44)
--- NOTE | 2020-01-08 22:28 | NUR ---
NURSE NOTES: Received patient comfortably resting in bed, no SOB, talking on the phone.
[2020-01-09 04:00] VITALS: BP 139/69
[2020-01-09] MEDS: Morphine Sulfate 2mg/ml Inj(IV/IM USE ONLY) IVP PRN ×4 (05:19→21:07)
[2020-01-09] MEDS: Aztreonam Inj 1 GM in NS 55 ML IVPB SCH ×3 (06:00→22:11)
[2020-01-09 06:36] LABS: BASOPHILS % (AUTO) 1.1 % (0.0-2.0); EOSINOPHILS % (AUTO) 8.6 % (0.0-3.0); HEMATOCRIT 36.6 % (37.0-47.0); LYMPHOCYTES % (AUTO) 27.2 % (20.0-45.0); MEAN CORPUSCULAR VOLUME 82 FL (80-99); MONOCYTES % (AUTO) 11.6 % (1.0-10.0); NEUTROPHILS % (AUTO) 51.4 % (45.0-75.0); PLATELET COUNT 219 K/UL (150-450); RED BLOOD COUNT 4.45 M/UL (4.20-5.40); RED CELL DISTRIBUTION WIDTH 13.8 % (11.6-14.8); WHITE BLOOD COUNT 7.1 K/UL (4.8-10.8)
[2020-01-09 06:42] LABS: ANION GAP 10 mmol/L (5-15); BLOOD UREA NITROGEN 14 mg/dL (7-18); CALCIUM 8.7 MG/DL (8.5-10.1); CARBON DIOXIDE 27 MMOL/L (21-32); CHLORIDE 105 MMOL/L (98-107); POTASSIUM 3.6 MMOL/L (3.5-5.1); SODIUM 142 MMOL/L (136-145)
[2020-01-09 07:23] LABS: % IRON SATURATION 9 % (15-50); IRON 29 ug/dL (50-175); TOTAL IRON BINDING CAPACITY 308 ug/dL (250-450)
--- NOTE | 2020-01-09 07:24 | NUR ---
HAND-OFF: Report given to Shana Sidhu RN.
--- NOTE | 2020-01-09 07:25 | NUR ---
NURSE NOTES: Received patient in bed asleep. No SOB or acute distress. IV line intact and patent. HOB elevated. Bed locked in lowest position. Call light within reach. Will continue plan of care.
[2020-01-09 08:00] VITALS: BP 131/61
--- NOTE | 2020-01-09 09:30 | NUR ---
NURSE NOTES: Patient complaining of ULQ abdominal pain and nausea, PRN meds given.
--- NOTE | 2020-01-09 09:48 | Surgery Progress Note ---
Surgery Progress Note Subjective Additional Comments slightly improved. states pain intermittent and with food no n/v/fc labs stable exam okay of note, patient reminded me today that I removed her left wrist ganglion cyst 3 years ago as outpatient Objective Last 24 Hour Vital Signs Date Time Temp Pulse Resp B/P (MAP) Pulse Ox O2 Delivery O2 Flow Rate FiO2 01/09/20 08:00 98.2 63 18 131/61 (84) 94 01/09/20 06:01 97.0 01/09/20 04:00 98.1 63 18 139/69 (92) 92 01/08/20 21:00 Room Air 01/08/20 20:00 97.9 56 18 137/64 (88) 95 01/08/20 19:17 97.0 01/08/20 16:00 97.0 55 18 106/54 (71) 93 01/08/20 12:00 96.8 57 18 121/59 (79) 93 I&O Intake and Output 01/08/20 01/09/20 18:59 06:59 Intake Total 393 ml 555 ml Balance 393 ml 555 ml Intake Oral 238 ml 400 ml IV Total 155 ml 155 ml # Voids 5 3 Cardiovascular: RSR Respiratory: clear Abdomen: soft, non-tender, present bowel sounds, non-distended Extremities: no edema, no tenderness, no cyanosis Laboratory Tests Test 01/08/20 16:33 01/09/20 05:50 White Blood Count 6.9 K/UL (4.8-10.8) 7.1 K/UL (4.8-10.8) Red Blood Count 4.28 M/UL (4.20-5.40) 4.45 M/UL (4.20-5.40) Hemoglobin 11.5 G/DL (12.0-16.0) L 12.0 G/DL (12.0-16.0) Hematocrit 34.8 % (37.0-47.0) L 36.6 % (37.0-47.0) L Mean Corpuscular Volume 81 FL (80-99) 82 FL (80-99) Mean Corpuscular Hemoglobin 27.0 PG (27.0-31.0) 27.0 PG (27.0-31.0) Mean Corpuscular Hemoglobin Concent 33.1 G/DL (32.0-36.0) 32.8 G/DL (32.0-36.0) Red Cell Distribution Width 13.5 % (11.6-14.8) 13.8 % (11.6-14.8) Platelet Count 204 K/UL (150-450) 219 K/UL (150-450) Mean Platelet Volume 8.8 FL (6.5-10.1) 8.8 FL (6.5-10.1) Neutrophils (%) (Auto) 57.4 % (45.0-75.0) 51.4 % (45.0-75.0) Lymphocytes (%) (Auto) 22.7 % (20.0-45.0) 27.2 % (20.0-45.0) Monocytes (%) (Auto) 10.1 % (1.0-10.0) H 11.6 % (1.0-10.0) H Eosinophils (%) (Auto) 8.6 % (0.0-3.0) H 8.6 % (0.0-3.0) H Basophils (%) (Auto) 1.2 % (0.0-2.0) 1.1 % (0.0-2.0) Sodium Level 141 MMOL/L (136-145) 142 MMOL/L (136-145) Potassium Level 3.6 MMOL/L (3.5-5.1) 3.6 MMOL/L (3.5-5.1) Chloride Level 106 MMOL/L (98-107) 105 MMOL/L (98-107) Carbon Dioxide Level 27 MMOL/L (21-32) 27 MMOL/L (21-32) Anion Gap 9 mmol/L (5-15) 10 mmol/L (5-15) Blood Urea Nitrogen 13 mg/dL (7-18) 14 mg/dL (7-18) Creatinine 1.0 MG/DL (0.55-1.30) 1.0 MG/DL (0.55-1.30) Estimat Glomerular Filtration Rate 56.5 mL/min (>60) 56.5 mL/min (>60) Glucose Level 125 MG/DL (74-106) H 118 MG/DL (74-106) H Calcium Level 8.9 MG/DL (8.5-10.1) 8.7 MG/DL (8.5-10.1) Phosphorus Level 3.9 MG/DL (2.5-4.9) Magnesium Level 1.8 MG/DL (1.8-2.4) Total Bilirubin 0.3 MG/DL (0.2-1.0) Aspartate Amino Transf (AST/SGOT) 32 U/L (15-37) Alanine Aminotransferase (ALT/SGPT) 29 U/L (12-78) Alkaline Phosphatase 93 U/L (46-116) Total Protein 6.2 G/DL (6.4-8.2) L Albumin 3.1 G/DL (3.4-5.0) L Globulin 3.1 g/dL Albumin/Globulin Ratio 1.0 (1.0-2.7) Iron Level 29 ug/dL (50-175) L Total Iron Binding Capacity 308 ug/dL (250-450) Percent Iron Saturation 9 % (15-50) L Unsaturated Iron Binding 279 ug/dL (112-346) Vitamin B12 Level 454 PG/ML (193-986) Folate 5.2 NG/ML (8.6-58.9) L Plan Problems: (1) Colitis Assessment & Plan: ABDOMEN: Liver: Hemangioma again noted in the right liver. Stable small hypodensity more inferiorly in the right liver is too small to definitively characterize but may represent another hemangioma. Hepatomegaly. Gallbladder and bile ducts: Unremarkable. No calcified stones. No ductal dilation. Pancreas: Atrophy of the pancreas. No ductal dilation. Spleen: Splenule. Mild splenomegaly. Adrenals: Nonspecific stable bilateral adrenal nodules. Kidneys and ureters: Increased prominence of small hypodensities in the inferior right kidney which measure greater than simple fluid attenuation and are nonspecific. These lesions measure approximately 1.6 cm and 1 cm. Further evaluation could be performed with ultrasound. Punctate nonobstructing right renal stone. No hydronephrosis or ureteral stone. Nonspecific mild bilateral perinephric fat stranding. Lesion off the inferior left kidney seen on prior exam in 2014 is not appreciated on this exam. Stomach and bowel: Prominence of the kirkpatrick of the colon may be secondary to under distention, but element of colitis is not excluded. Prominence of the wall of the stomach may be secondary to under distention versus gastritis. Diverticulosis without evidence of diverticulitis. No bowel obstruction. PELVIS: Appendix: Appendix is not visualized, but no CT evidence of acute appendicitis. Bladder: Decompressed bladder limits evaluation. Reproductive: Prior hysterectomy. ABDOMEN and PELVIS: Intraperitoneal space: Unremarkable. No free air. No significant fluid collection. Bones/joints: Probable small bone islands in the pelvic bones. Degenerative changes of the spine. No acute fracture. No dislocation. Soft tissues: Probable left lateral ventral hernia repair with mild protrusion of bowel loops in this region. There is also protrusion of bowel loops in the lower midline abdomen with evidence of prior hernia repair. Vasculature: Atherosclerotic changes of the vasculature. No aortic aneurysm or dissection. Lymph nodes: Unremarkable. No enlarged lymph nodes. IMPRESSION: 1. Nonspecific stable bilateral adrenal nodules. 2. Increased prominence of small hypodensities in the inferior right kidney which measure greater than simple fluid attenuation and are nonspecific. These lesions measure approximately 1.6 cm and 1 cm. Further evaluation could be performed with ultrasound. Neoplasm such as RCC is not excluded. 3. Punctate nonobstructing right renal stone. No hydronephrosis or ureteral stone. 4. Prominence of the kirkpatrick of the colon may be secondary to under distention, but element of colitis is not excluded. (2) Acute abdominal pain Assessment & Plan: Patient presents with 2 weeks of intermittent abdominal discomfort and worsening abdominal pain for the past 3 days. Currently no nausea vomiting fever chills. CT noted no acute intra-abdominal pathology clearly identified currently Abdominal exam with discomfort mild distention positive bowel sounds but no peritonitis No leukocytosis, no shift, possible UTI IV antibiotics per as per infectious disease IV fluids Okay for diet from surgical standpoint patient passing flatus We will follow with serial abdominal examinations no acute surgical intervention planned thank you for let me participate in patient's care possible EGD pending Norberto Felder January 09, 2020 09:48
[2020-01-09] MEDS: Docusate 100mg cap ORAL SCH ×2 (09:55→17:42)
[2020-01-09] MEDS: Pantoprazole Inj IVP SCH ×2 (09:55→20:34)
[2020-01-09] MEDS: Metoprolol Tartrate 50mg tab ORAL SCH (09:56)
[2020-01-09] MEDS: Lisinopril 10mg tab ORAL SCH (09:56)
[2020-01-09] MEDS: Enoxaparin 40mg Inj SUBQ SCH (10:00)
[2020-01-09] MEDS: DiphenhydrAMINE 50mg/ml Inj IVP PRN ×3 (10:08→22:01)
--- NOTE | 2020-01-09 11:39 | General Progress Note ---
Assessment/Plan Assessment/Plan: Assessment/Plan Assessment/Plan: Assessment - diarrhea - abd pain - diverticulosis - anemia -sig GERD and esophageal problems per patient -Anemia Recommendations - f/u stool tests - IVF - follow labs and exam -on ppi and baclofen - soft diet -GI procedures on hold pending COVID test Subjective ROS Limited/Unobtainable: No Allergies: Coded Allergies: CEFOTETAN (Verified Allergy, Severe, SHORTNESS OF BREATH, 03/20/12) CEFOTETAN DISODIUM (Unverified Allergy, Severe, 07/29/12) QUINOLONES (Verified Allergy, Mild, Rash, 03/20/12) CEFAZOLIN (Verified Allergy, Unknown, 07/01/09) CEFOTIAM (Verified Allergy, Unknown, Anaphylaxis, 12/07/16) CIPROFLOXACIN (Verified Allergy, Unknown, Hives, 12/07/16) CIPROFLOXACIN HCL (Verified Allergy, Unknown, Hives, 12/07/16) DEXTROSE-WATER (Unverified Allergy, Unknown, 12/07/16) LEVOFLOXACIN (Verified Allergy, Unknown, 12/07/16) Uncoded Allergies: SUFTAN (Allergy, Unknown, 12/07/16) Objective Last 24 Hour Vital Signs Date Time Temp Pulse Resp B/P (MAP) Pulse Ox O2 Delivery O2 Flow Rate FiO2 01/09/20 09:56 63 131/61 01/09/20 09:56 131/61 01/09/20 09:55 63 131/61 01/09/20 08:00 98.2 63 18 131/61 (84) 94 01/09/20 06:01 97.0 01/09/20 04:00 98.1 63 18 139/69 (92) 92 01/08/20 21:00 Room Air 01/08/20 20:00 97.9 56 18 137/64 (88) 95 01/08/20 19:17 97.0 01/08/20 16:00 97.0 55 18 106/54 (71) 93 01/08/20 12:00 96.8 57 18 121/59 (79) 93 Intake and Output 01/08/20 01/09/20 19:00 07:00 Intake Total 393 ml 555 ml Balance 393 ml 555 ml Intake Oral 238 ml 400 ml IV Total 155 ml 155 ml # Voids 5 3 Laboratory Tests 01/08/20 16:33: White Blood Count 6.9, Red Blood Count 4.28, Hemoglobin 11.5L, Hematocrit 34.8L , Mean Corpuscular Volume 81, Mean Corpuscular Hemoglobin 27.0, Mean Corpuscular Hemoglobin Concent 33.1, Red Cell Distribution Width 13.5, Platelet Count 204, Mean Platelet Volume 8.8, Neutrophils (%) (Auto) 57.4, Lymphocytes (% ) (Auto) 22.7, Monocytes (%) (Auto) 10.1H, Eosinophils (%) (Auto) 8.6H, Basophils (%) (Auto) 1.2, Sodium Level 141, Potassium Level 3.6, Chloride Level 106, Carbon Dioxide Level 27, Anion Gap 9, Blood Urea Nitrogen 13, Creatinine 1.0, Estimat Glomerular Filtration Rate 56.5, Glucose Level 125H, Calcium Level 8.9, Phosphorus Level 3.9, Magnesium Level 1.8, Total Bilirubin 0.3, Aspartate Amino Transf (AST/SGOT) 32, Alanine Aminotransferase (ALT/SGPT) 29, Alkaline Phosphatase 93, Total Protein 6.2L, Albumin 3.1L, Globulin 3.1, Albumin/ Globulin Ratio 1.0 01/09/20 05:50: White Blood Count 7.1, Red Blood Count 4.45, Hemoglobin 12.0, Hematocrit 36.6L, Mean Corpuscular Volume 82, Mean Corpuscular Hemoglobin 27.0, Mean Corpuscular Hemoglobin Concent 32.8, Red Cell Distribution Width 13.8, Platelet Count 219, Mean Platelet Volume 8.8, Neutrophils (%) (Auto) 51.4, Lymphocytes (%) (Auto) 27.2, Monocytes (%) (Auto) 11.6H, Eosinophils (%) (Auto) 8.6H, Basophils (%) ( Auto) 1.1, Sodium Level 142, Potassium Level 3.6, Chloride Level 105, Carbon Dioxide Level 27, Anion Gap 10, Blood Urea Nitrogen 14, Creatinine 1.0, Estimat Glomerular Filtration Rate 56.5, Glucose Level 118H, Calcium Level 8.7, Iron Level 29L, Total Iron Binding Capacity 308, Percent Iron Saturation 9L, Unsaturated Iron Binding 279, Vitamin B12 Level 454, Folate 5.2L Height (Feet): 5 Height (Inches): 6.00 Weight (Pounds): 242 General Appearance: no apparent distress EENT: TMs normal Neck: supple Cardiovascular: normal rate Respiratory/Chest: decreased breath sounds Abdomen: soft, hypoactive bowel sounds Extremities: non-tender Sunny Brandt MD January 09, 2020 11:39
[2020-01-09 12:00] VITALS: BP 110/56
--- NOTE | 2020-01-09 15:00 | NUR ---
NURSE NOTES: IV out, reinserted to right forearm using g22.
--- NOTE | 2020-01-09 15:13 | Internal Med Progress Note ---
Subjective Date of Service: January 09, 2020 Physician Name Bruna Dangelo Attending Physician Traci Griffiths M.D. Current Medications Medications (Trade) Dose Ordered Sig/Iris Route PRN Reason Start Time Stop Time Status Last Admin Dose Admin Acetaminophen (Tylenol) 650 mg Q6H PRN ORAL For Headache 01/06/20 18:15 02/05/20 18:14 Acetaminophen/ Hydrocodone Bitart ([place] 10/325) 1 tab Q4H PRN ORAL For Pain 01/06/20 18:15 01/13/20 18:14 01/06/20 18:22 Amlodipine Besylate (Norvasc) 5 mg DAILY ORAL 01/06/20 18:15 02/05/20 18:14 01/09/20 09:55 Atorvastatin Calcium (Lipitor) 40 mg BEDTIME ORAL 01/06/20 21:00 04/05/20 20:59 01/08/20 20:44 Aztreonam 1 gm/ Sodium Chloride 55 ml @ 110 mls/hr Q8H IVPB 01/06/20 23:00 01/13/20 22:59 01/09/20 06:00 Baclofen (Lioresal) 10 mg BEDTIME ORAL 01/08/20 21:00 02/07/20 20:59 01/08/20 20:44 Carisoprodol (Soma) 350 mg BID ORAL 01/06/20 18:15 02/05/20 18:14 01/09/20 09:58 Clonidine HCl (Catapres Tab) 0.1 mg Q4H PRN ORAL SBP > 180 01/06/20 18:15 04/05/20 18:14 Diphenhydramine HCl (Benadryl) 25 mg Q6H PRN IVP Itching 01/06/20 21:15 02/05/20 21:14 01/09/20 10:08 Docusate Sodium (Colace) 100 mg TIDPRN PRN ORAL Constipation 01/06/20 18:15 02/05/20 18:14 Docusate Sodium (Colace) 200 mg BID ORAL 01/06/20 18:15 02/05/20 18:14 01/09/20 09:55 Enoxaparin Sodium (Lovenox) 40 mg DAILY SUBQ 01/06/20 18:15 04/05/20 18:14 01/09/20 10:00 Gabapentin (Neurontin) 800 mg THREE TIMES A DAY ORAL 01/06/20 18:15 02/05/20 18:14 01/09/20 13:16 Hydralazine HCl (Apresoline) 10 mg Q6H PRN ORAL SBP > 160 01/06/20 18:15 04/05/20 18:14 Iron Sucrose 100 mg/Sodium Chloride 60 ml @ 240 mls/hr BEDTIME IV 01/09/20 21:00 01/13/20 21:14 Lidocaine (Lidoderm 5% PATCH) 1 patch Q12HR TDERMAL 01/06/20 21:00 04/05/20 20:59 01/09/20 09:59 Lisinopril (ZestriL) 10 mg DAILY ORAL 01/06/20 18:15 02/05/20 18:14 01/09/20 09:56 Lorazepam (Ativan) 1 mg BIDPRN PRN ORAL Agitation 01/06/20 18:15 01/13/20 18:14 Metoprolol Tartrate (Lopressor) 50 mg DAILY ORAL 01/07/20 09:00 04/06/20 08:59 01/09/20 09:56 Metronidazole 100 ml @ 100 mls/hr Q8HR IVPB 01/06/20 22:00 01/13/20 21:59 01/09/20 13:17 Morphine Sulfate (Morphine Sulfate) 2 mg Q4H PRN IVP For Pain 01/06/20 18:15 01/13/20 18:14 01/09/20 10:09 Ondansetron HCl (Zofran) 4 mg Q6H PRN IVP Nausea & Vomiting 01/06/20 18:30 02/05/20 18:29 01/09/20 10:01 Pantoprazole (Protonix) 40 mg EVERY 12 HOURS IVP 01/08/20 09:00 02/07/20 08:59 01/09/20 09:55 Trazodone HCl (Desyrel) 50 mg BEDTIME ORAL 01/06/20 21:00 02/05/20 20:59 01/08/20 20:43 Zolpidem Tartrate (Ambien) 5 mg QHS ORAL 01/06/20 21:00 01/13/20 20:59 01/08/20 20:44 Allergies: Coded Allergies: CEFOTETAN (Verified Allergy, Severe, SHORTNESS OF BREATH, 03/20/12) CEFOTETAN DISODIUM (Unverified Allergy, Severe, 07/29/12) QUINOLONES (Verified Allergy, Mild, Rash, 03/20/12) CEFAZOLIN (Verified Allergy, Unknown, 07/01/09) CEFOTIAM (Verified Allergy, Unknown, Anaphylaxis, 12/07/16) CIPROFLOXACIN (Verified Allergy, Unknown, Hives, 12/07/16) CIPROFLOXACIN HCL (Verified Allergy, Unknown, Hives, 12/07/16) DEXTROSE-WATER (Unverified Allergy, Unknown, 12/07/16) LEVOFLOXACIN (Verified Allergy, Unknown, 12/07/16) Uncoded Allergies: SUFTAN (Allergy, Unknown, 12/07/16) Subjective Await COVID. At this point, I presume symptoms are related to severe gastritis, will hold aspirin and hoping patient will obtain relief w/ Protonix IV BID. Anticipate EGD pending COVID results. Appreciate consultants. Patient states her pain is a little improved, but still with discomfort. Objective Last Vital Signs Date Time Temp Pulse Resp B/P (MAP) Pulse Ox O2 Delivery O2 Flow Rate FiO2 01/09/20 12:00 97.7 53 18 110/56 (74) 94 01/09/20 09:00 Room Air Laboratory Tests Test 01/08/20 16:33 01/09/20 05:50 White Blood Count 6.9 K/UL (4.8-10.8) 7.1 K/UL (4.8-10.8) Red Blood Count 4.28 M/UL (4.20-5.40) 4.45 M/UL (4.20-5.40) Hemoglobin 11.5 G/DL (12.0-16.0) L 12.0 G/DL (12.0-16.0) Hematocrit 34.8 % (37.0-47.0) L 36.6 % (37.0-47.0) L Mean Corpuscular Volume 81 FL (80-99) 82 FL (80-99) Mean Corpuscular Hemoglobin 27.0 PG (27.0-31.0) 27.0 PG (27.0-31.0) Mean Corpuscular Hemoglobin Concent 33.1 G/DL (32.0-36.0) 32.8 G/DL (32.0-36.0) Red Cell Distribution Width 13.5 % (11.6-14.8) 13.8 % (11.6-14.8) Platelet Count 204 K/UL (150-450) 219 K/UL (150-450) Mean Platelet Volume 8.8 FL (6.5-10.1) 8.8 FL (6.5-10.1) Neutrophils (%) (Auto) 57.4 % (45.0-75.0) 51.4 % (45.0-75.0) Lymphocytes (%) (Auto) 22.7 % (20.0-45.0) 27.2 % (20.0-45.0) Monocytes (%) (Auto) 10.1 % (1.0-10.0) H 11.6 % (1.0-10.0) H Eosinophils (%) (Auto) 8.6 % (0.0-3.0) H 8.6 % (0.0-3.0) H Basophils (%) (Auto) 1.2 % (0.0-2.0) 1.1 % (0.0-2.0) Sodium Level 141 MMOL/L (136-145) 142 MMOL/L (136-145) Potassium Level 3.6 MMOL/L (3.5-5.1) 3.6 MMOL/L (3.5-5.1) Chloride Level 106 MMOL/L (98-107) 105 MMOL/L (98-107) Carbon Dioxide Level 27 MMOL/L (21-32) 27 MMOL/L (21-32) Anion Gap 9 mmol/L (5-15) 10 mmol/L (5-15) Blood Urea Nitrogen 13 mg/dL (7-18) 14 mg/dL (7-18) Creatinine 1.0 MG/DL (0.55-1.30) 1.0 MG/DL (0.55-1.30) Estimat Glomerular Filtration Rate 56.5 mL/min (>60) 56.5 mL/min (>60) Glucose Level 125 MG/DL (74-106) H 118 MG/DL (74-106) H Calcium Level 8.9 MG/DL (8.5-10.1) 8.7 MG/DL (8.5-10.1) Phosphorus Level 3.9 MG/DL (2.5-4.9) Magnesium Level 1.8 MG/DL (1.8-2.4) Total Bilirubin 0.3 MG/DL (0.2-1.0) Aspartate Amino Transf (AST/SGOT) 32 U/L (15-37) Alanine Aminotransferase (ALT/SGPT) 29 U/L (12-78) Alkaline Phosphatase 93 U/L (46-116) Total Protein 6.2 G/DL (6.4-8.2) L Albumin 3.1 G/DL (3.4-5.0) L Globulin 3.1 g/dL Albumin/Globulin Ratio 1.0 (1.0-2.7) Iron Level 29 ug/dL (50-175) L Total Iron Binding Capacity 308 ug/dL (250-450) Percent Iron Saturation 9 % (15-50) L Unsaturated Iron Binding 279 ug/dL (112-346) Vitamin B12 Level 454 PG/ML (193-986) Folate 5.2 NG/ML (8.6-58.9) L Intake and Output 01/08/20 01/09/20 19:00 07:00 Intake Total 393 ml 555 ml Balance 393 ml 555 ml Intake Oral 238 ml 400 ml IV Total 155 ml 155 ml # Voids 5 3 Objective General Appearance: WD/WN, no apparent distress Cardiovascular: normal rate, regular rhythm Respiratory/Chest: lungs clear, normal breath sounds, no respiratory distress Abdomen: soft, other - mildly TTP Extremities: normal range of motion 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 grossly normal Skin: warm/dry Assessment/Plan Assessment/Plan Assessment #R/O Gastritis; high suspicion, anticipate EGD pending COVID results #Colitis --> not septic, wbc wnl, hx of chronic GI issues, Last Colonoscopy was 3 years ago, Hx of Ex Lap s/p Colectomy ( per patient report 2/2 perforated Diverticulitis) #HTN #Renal Nodules, r/o CA, patient w/ established nephro/PCP care #DMII #Chronic Back Pain Plan Appreciate Nephro/PCP and GI Stool Studies , C diff pending, COVID pending Zofran, Morphine IV prn Obtain and reconcile home meds--> for HTN- metoprolol,Atorvastatin, norvasc, For Pain Gabapentin and Soma Hold ASA for now given concern for gastritis Weight based insulin dosing, goal blood sugar less than 180 while in patient, A1C noted Protonix IV BID DVT ppx Diet as tolerated Bruna Dangelo D.O. January 09, 2020 15:13
--- NOTE | 2020-01-09 15:32 | NUR ---
CASE MANAGEMENT:INITIAL REVIEW 01/07/20 59 YR OLD FEMALE WALKED IN TO ED FROM HOME CC;ABDOMINAL PAIN SI;COLITIS. INTRACTABLE ABD PAIN 98.4 85 20 191/95 95% ON RA BG 146 AST 42 LIPASE 47 UA+ PROTEIN, KETONES. BILIRUBIN, UROBILI, RBC, SQUAMOUS, MUCUS COVID-19 PCR ~ RESULT PENDING ABD/PELVIS CT ~ 1. Nonspecific stable bilateral adrenal nodules. 2. Increased prominence of small hypodensities in the inferior right kidney which measure greater than simple fluid attenuation and are nonspecific. These lesions measure approximately 1.6 cm and 1 cm. Further evaluation could be performed with ultrasound. Neoplasm such as RCC is not excluded. 3. Punctate nonobstructing right renal stone. No hydronephrosis or ureteral stone. 4. Prominence of the kirkpatrick of the colon may be secondary to under distention, but element of colitis is not excluded. IS;ZOFRAN IV ONCE PROTONIX IV ONCE IVF NS BOLUS BENADRYL IV ONCE DILAUDID IV ONCE ADMITTED TO MED SURG @ 1522 ON 01/06/20 MED SURG STATUS DCP;FROM HOME CASE MANAGEMENT:REVIEW 01/09/20 SI;GASTRITIS. COLITIS. DIVERTICULOSIS. HTN. RENAL NODULES. 97.0 53 18 131/61 94% ON RA IS;IRON SUCROSE IV HS PROTONIX IV Q12 HRS AZTREONAM IV Q8 HRS LOVENOX SUBQ QD FLAGYL IV Q8 HRS MED SURG STATUS DCP;FROM HOME
[2020-01-09 16:00] VITALS: BP 115/52
--- NOTE | 2020-01-09 16:58 | NUR ---
*-* INSRUANCE *-* ALL CLINICALS AND REVIEWS HAVE BEEN FAXED TO: [employer] P: [phone] F: [phone] (FAX CLINICALS HERE AND TO [facility] [employer]) & [employer] AUTH# [id number] FAX CLINICALS TO:[phone]
--- NOTE | 2020-01-09 19:20 | NUR ---
HAND-OFF: Report given to Travis BARKER.
[2020-01-09 20:00] VITALS: BP 127/87
[2020-01-09] MEDS: Atorvastatin 80mg tab ORAL SCH (20:34)
[2020-01-09] MEDS: Zolpidem 5mg tab ORAL SCH (20:34)
[2020-01-09] MEDS: TraZODone 50mg tab ORAL SCH (20:34)
[2020-01-09] MEDS: Iron Sucrose 100 MG in NS 55 ML IV SCH (20:36)
--- NOTE | 2020-01-09 21:34 | NUR ---
NURSE NOTES: Lidoderm patch removed at 2100 from left lower back. Spoke with Pharmacist Silvio regarding lidoderm schedule.
[2020-01-10] VITALS (11 sets, daily range): BP systolic 112–135; BP diastolic 60–75
[2020-01-10] MEDS: Morphine Sulfate 2mg/ml Inj(IV/IM USE ONLY) IVP PRN ×3 (02:41→21:16)
[2020-01-10] MEDS: Aztreonam Inj 1 GM in NS 55 ML IVPB SCH ×4 (06:00→23:00)
--- NOTE | 2020-01-10 06:50 | NUR ---
RAPID RESPONSE: See Rapid Response sheet which remains on paper. S/P FALL Upon arrival patient was already sitting at bedside. According to the patient, she tired to get up to use the bedside cammode and fell on her buttox. Patient stated that she felt a little dizzy while getting up and accidently slipped.Patient was alert and oriented and talkative during the assessment. Educated patient on using the call light. Vitals were taken and neuro assessment was conducted. AAOX4. Primary was called and message was left by primary nurse. Awaiting for call back by Attending MD.
--- NOTE | 2020-01-10 06:57 | NUR ---
NURSE NOTES: Patient found on floor s/p fall. Patient stated she got up to go to the bedside commode, did not call for help as she's "always been able to do it on my own". Patient used call light to call nurse into her room after she had attempted to get up by herself and fell again. Patient stated she fell on her buttocks after her "knees gave out" after she stood up. UPHOLSTERY REPAIRER FALL called. Charge nurse, STUDENT SERVICES VICE PRESIDENT, and 3 additional RNs on the scene, followed by UPHOLSTERY REPAIRER team and soda dry house operator. Patient was able to be helped up back to bed with [address] Truong aware, please see new orders. Left 2 messages for patient's , awaiting call back.
[2020-01-10 07:00] LABS: BASOPHILS % (AUTO) 1.6 % (0.0-2.0); EOSINOPHILS % (AUTO) 7.7 % (0.0-3.0); HEMATOCRIT 36.4 % (37.0-47.0); HEMOGLOBIN 11.9 G/DL (12.0-16.0); MEAN CORPUSCULAR VOLUME 82 FL (80-99); MONOCYTES % (AUTO) 10.3 % (1.0-10.0); NEUTROPHILS % (AUTO) 52.4 % (45.0-75.0); PLATELET COUNT 207 K/UL (150-450); RED BLOOD COUNT 4.43 M/UL (4.20-5.40); RED CELL DISTRIBUTION WIDTH 13.7 % (11.6-14.8); WHITE BLOOD COUNT 7.3 K/UL (4.8-10.8)
[2020-01-10 07:41] LABS: ALANINE AMINOTRANSFERASE 26 U/L (12-78); ALBUMIN 2.9 G/DL (3.4-5.0); ALBUMIN/GLOBULIN RATIO 0.9 (1.0-2.7); ALKALINE PHOSPHATASE 95 U/L (46-116); ANION GAP 11 mmol/L (5-15); ASPARTATE AMINO TRANSFERASE 33 U/L (15-37); BILIRUBIN,TOTAL 0.2 MG/DL (0.2-1.0); BLOOD UREA NITROGEN 13 mg/dL (7-18); CALCIUM 8.5 MG/DL (8.5-10.1); CARBON DIOXIDE 24 MMOL/L (21-32); CHLORIDE 108 MMOL/L (98-107); POTASSIUM 3.7 MMOL/L (3.5-5.1); SODIUM 143 MMOL/L (136-145)
[2020-01-10 07:51] LABS: PHOSPHORUS 3.5 MG/DL (2.5-4.9)
--- NOTE | 2020-01-10 08:03 | NUR ---
HAND-OFF: Report given to LUCERO Dixon.
--- NOTE | 2020-01-10 08:07 | NUR ---
NURSE NOTES: Patient alert x4; on room air, no sing of distress and shortness of breath; no song of chest pain; IV Right AC flushes well; bed side Commod within reach; patient encouraged to call for help; per report from PM nurseMonique, patient fell around 0625, MD Truong and family member notified; fall percussion in place, yellow gawn, sign at the door, dental ceramist assistant Kanchan notified, patient's risk for fall; will do a Post Fall assessment every hour; will keep monitoring.
--- NOTE | 2020-01-10 09:10 | NUR ---
NURSE NOTES: Patient left the floor for X-Ray;
[2020-01-10] MEDS: Metoprolol Tartrate 50mg tab ORAL SCH (09:55)
[2020-01-10] MEDS: Pantoprazole Inj IVP SCH ×2 (09:55→21:13)
[2020-01-10] MEDS: Docusate 100mg cap ORAL SCH ×2 (09:55→17:20)
[2020-01-10] MEDS: Lisinopril 10mg tab ORAL SCH (09:55)
[2020-01-10] MEDS: Enoxaparin 40mg Inj SUBQ SCH (09:57)
--- NOTE | 2020-01-10 10:39 | NUR ---
PORCELAIN FINISH SPRAYER NOTE DR FRITZ INFORMED OF COVID-19 RESULT-NEGATIVE
--- NOTE | 2020-01-10 11:18 | General Progress Note ---
Assessment/Plan Assessment/Plan: Assessment/Plan Assessment/Plan: Assessment - diarrhea - abd pain - diverticulosis - anemia -sig GERD and esophageal problems per patient -Anemia Recommendations - f/u stool tests - IVF - follow labs and exam -on ppi and baclofen - soft diet -plan EGD in am Subjective ROS Limited/Unobtainable: Yes Allergies: Coded Allergies: CEFOTETAN (Verified Allergy, Severe, SHORTNESS OF BREATH, 03/20/12) CEFOTETAN DISODIUM (Unverified Allergy, Severe, 07/29/12) QUINOLONES (Verified Allergy, Mild, Rash, 03/20/12) CEFAZOLIN (Verified Allergy, Unknown, 07/01/09) CEFOTIAM (Verified Allergy, Unknown, Anaphylaxis, 12/07/16) CIPROFLOXACIN (Verified Allergy, Unknown, Hives, 12/07/16) CIPROFLOXACIN HCL (Verified Allergy, Unknown, Hives, 12/07/16) DEXTROSE-WATER (Unverified Allergy, Unknown, 12/07/16) LEVOFLOXACIN (Verified Allergy, Unknown, 12/07/16) Uncoded Allergies: SUFTAN (Allergy, Unknown, 12/07/16) Objective Last 24 Hour Vital Signs Date Time Temp Pulse Resp B/P (MAP) Pulse Ox O2 Delivery O2 Flow Rate FiO2 01/10/20 09:55 57 135/69 01/10/20 09:55 135/69 01/10/20 09:54 57 135/69 01/10/20 08:00 97.9 57 20 135/69 (91) 95 01/10/20 07:18 75 22 95 01/10/20 06:55 97.9 72 18 127/72 (90) 95 01/10/20 06:45 98.0 75 18 133/75 (94) 95 01/10/20 06:43 98.0 95 Room Air 01/10/20 04:00 98.3 61 18 113/62 (79) 95 01/10/20 03:11 98.3 01/09/20 22:27 Room Air 01/09/20 20:00 97.9 62 18 127/87 (100) 94 01/09/20 16:00 97.7 52 18 115/52 (73) 94 01/09/20 12:00 97.7 53 18 110/56 (74) 94 Intake and Output 01/09/20 01/10/20 19:00 07:00 Intake Total 480 ml 150 ml Balance 480 ml 150 ml Intake Oral 480 ml 150 ml # Voids 2 2 Laboratory Tests 01/10/20 06:10: White Blood Count 7.3, Red Blood Count 4.43, Hemoglobin 11.9L, Hematocrit 36.4L , Mean Corpuscular Volume 82, Mean Corpuscular Hemoglobin 26.9L, Mean Corpuscular Hemoglobin Concent 32.7, Red Cell Distribution Width 13.7, Platelet Count 207, Mean Platelet Volume 9.6, Neutrophils (%) (Auto) 52.4, Lymphocytes (% ) (Auto) 28.0, Monocytes (%) (Auto) 10.3H, Eosinophils (%) (Auto) 7.7H, Basophils (%) (Auto) 1.6, Sodium Level 143, Potassium Level 3.7, Chloride Level 108H, Carbon Dioxide Level 24, Anion Gap 11, Blood Urea Nitrogen 13, Creatinine 1.0, Estimat Glomerular Filtration Rate 56.5, Glucose Level 117H, Calcium Level 8.5, Phosphorus Level 3.5, Magnesium Level 1.8, Ferritin 44, Total Bilirubin 0.2 , Aspartate Amino Transf (AST/SGOT) 33, Alanine Aminotransferase (ALT/SGPT) 26, Alkaline Phosphatase 95, Total Protein 6.2L, Albumin 2.9L, Globulin 3.3, Albumin /Globulin Ratio 0.9L Height (Feet): 5 Height (Inches): 6.00 Weight (Pounds): 239 General Appearance: alert EENT: normal ENT inspection Neck: normal alignment Cardiovascular: normal rate Respiratory/Chest: decreased breath sounds Abdomen: soft, hypoactive bowel sounds, tender Extremities: non-tender Sunny Brandt MD January 10, 2020 11:18
--- NOTE | 2020-01-10 11:33 | Diagnostic Imaging Report ---
Indication: Pain status post fall Technique: 3 views of the right knee Comparison: 09/21/2018 Findings: Unchanged appearance of left knee prosthesis, which appears well aligned with no periprosthetic lucency demonstrated. There is a slight cortical irregularity of the medial left femoral metaphysis with elevation of the cortical bone which is not evident on the prior exam, with similar posterior regularity present on the lateral view.. However, the current projections are slightly different and this does not appear to represent a through and through injury if real. The bones are otherwise intact. There is evidence of a large intra-articular loose body in the posterior joint, seen on the lateral view, also evident previously. Impression:Slight posterior medial cortical irregularity of the distal femur, could represent an unusual cortical fracture. No evidence of through and through fracture or hardware injury demonstrated.
--- NOTE | 2020-01-10 11:33 | NUR ---
NURSE NOTES: I called MD Amy serrano and left a message on the result of COVID-19 result, which is negative; waiting for order wether to do second swap for COVID-19 or DC isolation.
--- NOTE | 2020-01-10 11:35 | Diagnostic Imaging Report ---
Indication: Pain status post fall Technique: 3 views of the left knee Comparison: 11/27/2013 Findings: Stable appearance of left knee arthroplasty, hardware appearing intact. No periprosthetic lucency demonstrated. No acute fractures. No dislocations. The joint spaces are preserved. Impression: No acute process
--- NOTE | 2020-01-10 11:38 | Diagnostic Imaging Report ---
Indication: Pain status post fall Technique: One view the pelvis, 2 views of both hips Comparison: none Findings: No acute fractures. No dislocations. The joint spaces are preserved. However, mild subchondral sclerosis on the acetabular side of both hip joints indicates early degenerative change. There is evidence of prior abdominal wall hernia repair. There are degenerative changes of the lumbosacral junction Impression: No definite acute bony trauma. Note, however, that nondisplaced hip or pelvic fractures can easily be occult, and consideration should be given to cross-sectional imaging if there is high clinical suspicion for such. Degenerative changes, as described Evidence of prior abdominal wall hernia surgery
--- NOTE | 2020-01-10 11:40 | Diagnostic Imaging Report ---
Indication: Pain status post fall Technique: 3 views of the lumbar spine Comparison: None Findings: There is degenerative narrowing of the lower lumbar discs. Vertebral body heights are preserved. The pedicles are intact. Sacral arches are preserved. The sacroiliac joint spaces are preserved. Impression: Degenerative spondylosis. No acute bony trauma
[2020-01-10] MEDS ORDERED: Heparin1,000 units/500ml Premix(Conc:2 units/ml) IV PRN (13:00)
[2020-01-10] MEDS ORDERED: Lidocaine 1% Plain 30 ml INJ PRN (13:01)
--- NOTE | 2020-01-10 14:01 | NUR ---
CASE MANAGEMENT:REVIEW SI;SEVERE GASTRITIS. COLITIS. DIVERTICULOSIS. RENAL NODULES. 98.6 57 20 135/69 94% ON RA 108 ALB 2.9 IS;AZTREONAM IV Q8 HRS FLAGYL IV Q8 HRS PROTONIX IV Q12 HRS IRON SUCROSE IV HS DEBBIE-HEX TOP QD NORVASC PO QD ZESTRIL PO QD NORCO PO Q4 HRS PRN MORPHINE IV Q4 HRS PRN MED SURG STATUS DCP;FROM HOME PLAN;EGD CONT IV PPI
[2020-01-10] MEDS: DiphenhydrAMINE 50mg/ml Inj IVP PRN ×2 (14:09→21:15)
--- NOTE | 2020-01-10 15:02 | NUR ---
NURSE NOTES: Post fall assessment, Neuro check and vitals done; assisted patient to use the rest room; bed alarm on, bed at lowest position, breaks engaged; call light within reach; will keep monitoring.
--- NOTE | 2020-01-10 15:04 | NUR ---
NURSE NOTES: Patient signed consent for PICC and EKD; charge nurse Davida is aware;
--- NOTE | 2020-01-10 15:13 | NUR ---
*-* INSURANCE *-* UPDATED CLINICALS AND REVIEWS HAVE BEEN FAXED TO: [employer] P: [phone] F: [phone] (FAX CLINICALS HERE AND TO [facility]) & [employer] AUTH# [id number] FAX CLINICALS TO:[phone]
[2020-01-10] MEDS ORDERED: HYDROmorphone 1mg/ml Carpuject IVP SCH (15:42)
--- NOTE | 2020-01-10 16:53 | Internal Med Progress Note ---
Subjective Date of Service: January 10, 2020 Physician Name Bruna Dangelo Attending Physician Guy Reyes MD Current Medications Medications (Trade) Dose Ordered Sig/Iris Route PRN Reason Start Time Stop Time Status Last Admin Dose Admin Acetaminophen (Tylenol) 650 mg Q6H PRN ORAL For Headache 01/06/20 18:15 02/05/20 18:14 Acetaminophen/ Hydrocodone Bitart (Inola 10/325) 1 tab Q4H PRN ORAL For Pain 01/06/20 18:15 01/13/20 18:14 01/06/20 18:22 Amlodipine Besylate (Norvasc) 5 mg DAILY ORAL 01/06/20 18:15 02/05/20 18:14 01/10/20 09:54 Atorvastatin Calcium (Lipitor) 40 mg BEDTIME ORAL 01/06/20 21:00 04/05/20 20:59 01/09/20 20:34 Aztreonam 1 gm/ Sodium Chloride 55 ml @ 110 mls/hr Q8H IVPB 01/06/20 23:00 01/13/20 22:59 01/10/20 16:01 Baclofen (Lioresal) 10 mg BEDTIME ORAL 01/08/20 21:00 02/07/20 20:59 01/09/20 20:34 Carisoprodol (Soma) 350 mg BID ORAL 01/06/20 18:15 02/05/20 18:14 01/10/20 09:54 Chlorhexidine Gluconate (Marybeth-Hex 2%) 1 applic DAILY@2000 TOPIC 01/10/20 20:00 04/09/20 19:59 Clonidine HCl (Catapres Tab) 0.1 mg Q4H PRN ORAL SBP > 180 01/06/20 18:15 04/05/20 18:14 Diphenhydramine HCl (Benadryl) 25 mg Q6H PRN IVP Itching 01/06/20 21:15 02/05/20 21:14 01/10/20 14:09 Docusate Sodium (Colace) 100 mg TIDPRN PRN ORAL Constipation 01/06/20 18:15 02/05/20 18:14 Docusate Sodium (Colace) 200 mg BID ORAL 01/06/20 18:15 02/05/20 18:14 01/10/20 09:55 Enoxaparin Sodium (Lovenox) 40 mg DAILY SUBQ 01/06/20 18:15 04/05/20 18:14 01/10/20 09:57 Gabapentin (Neurontin) 800 mg THREE TIMES A DAY ORAL 01/10/20 18:00 02/05/20 17:59 Heparin Sodium/ Sodium Chloride (Heparin 1000 units/500ml Premix) 1,000 unit ONCE PRN IV PICC 01/10/20 13:00 01/10/20 23:59 Hydralazine HCl (Apresoline) 10 mg Q6H PRN ORAL SBP > 160 01/06/20 18:15 04/05/20 18:14 Hydromorphone HCl (Dilaudid) 1 mg ONCE IVP 01/10/20 15:42 01/10/20 17:00 01/10/20 16:01 Iron Sucrose 100 mg/Sodium Chloride 60 ml @ 240 mls/hr BEDTIME IV 01/09/20 21:00 01/13/20 21:14 01/09/20 20:36 Lidocaine (Lidoderm 5% PATCH) 1 patch Q12HR TDERMAL 01/10/20 09:00 04/09/20 08:59 01/10/20 09:55 Lidocaine HCl (Xylocaine 1% 30ml) 30 ml ONCE PRN INJ PICC LINE 01/10/20 13:01 01/10/20 23:59 Lisinopril (ZestriL) 10 mg DAILY ORAL 01/06/20 18:15 02/05/20 18:14 01/10/20 09:55 Lorazepam (Ativan) 1 mg BIDPRN PRN ORAL Agitation 01/06/20 18:15 01/13/20 18:14 Metoprolol Tartrate (Lopressor) 50 mg DAILY ORAL 01/07/20 09:00 04/06/20 08:59 01/10/20 09:55 Metronidazole 100 ml @ 100 mls/hr Q8HR IVPB 01/06/20 22:00 01/13/20 21:59 01/10/20 14:36 Morphine Sulfate (Morphine Sulfate) 2 mg Q4H PRN IVP For Pain 01/06/20 18:15 01/13/20 18:14 01/10/20 13:59 Ondansetron HCl (Zofran) 4 mg Q6H PRN IVP Nausea & Vomiting 01/06/20 18:30 02/05/20 18:29 01/09/20 10:01 Pantoprazole (Protonix) 40 mg EVERY 12 HOURS IVP 01/08/20 09:00 02/07/20 08:59 01/10/20 09:55 Trazodone HCl (Desyrel) 50 mg BEDTIME ORAL 01/06/20 21:00 02/05/20 20:59 01/09/20 20:34 Zolpidem Tartrate (Ambien) 5 mg QHS ORAL 01/06/20 21:00 01/13/20 20:59 01/09/20 20:34 Allergies: Coded Allergies: CEFOTETAN (Verified Allergy, Severe, SHORTNESS OF BREATH, 03/20/12) CEFOTETAN DISODIUM (Unverified Allergy, Severe, 07/29/12) QUINOLONES (Verified Allergy, Mild, Rash, 03/20/12) CEFAZOLIN (Verified Allergy, Unknown, 07/01/09) CEFOTIAM (Verified Allergy, Unknown, Anaphylaxis, 12/07/16) CIPROFLOXACIN (Verified Allergy, Unknown, Hives, 12/07/16) CIPROFLOXACIN HCL (Verified Allergy, Unknown, Hives, 12/07/16) DEXTROSE-WATER (Unverified Allergy, Unknown, 12/07/16) LEVOFLOXACIN (Verified Allergy, Unknown, 12/07/16) Uncoded Allergies: SUFTAN (Allergy, Unknown, 12/07/16) Subjective COVID is negative; patient had a fall today, and Xray of femur cannot rule small cortical fx so will obtain CT. Anticipate EGD tomorrow. Objective Last Vital Signs Date Time Temp Pulse Resp B/P (MAP) Pulse Ox O2 Delivery O2 Flow Rate FiO2 01/10/20 14:29 98.6 01/10/20 12:00 57 20 119/73 (88) 94 01/10/20 09:00 Room Air Laboratory Tests Test 01/10/20 06:10 White Blood Count 7.3 K/UL (4.8-10.8) Red Blood Count 4.43 M/UL (4.20-5.40) Hemoglobin 11.9 G/DL (12.0-16.0) L Hematocrit 36.4 % (37.0-47.0) L Mean Corpuscular Volume 82 FL (80-99) Mean Corpuscular Hemoglobin 26.9 PG (27.0-31.0) L Mean Corpuscular Hemoglobin Concent 32.7 G/DL (32.0-36.0) Red Cell Distribution Width 13.7 % (11.6-14.8) Platelet Count 207 K/UL (150-450) Mean Platelet Volume 9.6 FL (6.5-10.1) Neutrophils (%) (Auto) 52.4 % (45.0-75.0) Lymphocytes (%) (Auto) 28.0 % (20.0-45.0) Monocytes (%) (Auto) 10.3 % (1.0-10.0) H Eosinophils (%) (Auto) 7.7 % (0.0-3.0) H Basophils (%) (Auto) 1.6 % (0.0-2.0) Sodium Level 143 MMOL/L (136-145) Potassium Level 3.7 MMOL/L (3.5-5.1) Chloride Level 108 MMOL/L (98-107) H Carbon Dioxide Level 24 MMOL/L (21-32) Anion Gap 11 mmol/L (5-15) Blood Urea Nitrogen 13 mg/dL (7-18) Creatinine 1.0 MG/DL (0.55-1.30) Estimat Glomerular Filtration Rate 56.5 mL/min (>60) Glucose Level 117 MG/DL (74-106) H Calcium Level 8.5 MG/DL (8.5-10.1) Phosphorus Level 3.5 MG/DL (2.5-4.9) Magnesium Level 1.8 MG/DL (1.8-2.4) Ferritin 44 NG/ML (8-388) Total Bilirubin 0.2 MG/DL (0.2-1.0) Aspartate Amino Transf (AST/SGOT) 33 U/L (15-37) Alanine Aminotransferase (ALT/SGPT) 26 U/L (12-78) Alkaline Phosphatase 95 U/L (46-116) Total Protein 6.2 G/DL (6.4-8.2) L Albumin 2.9 G/DL (3.4-5.0) L Globulin 3.3 g/dL Albumin/Globulin Ratio 0.9 (1.0-2.7) L Intake and Output 5/26/20 5/27/20 19:00 07:00 Intake Total 480 ml 150 ml Balance 480 ml 150 ml Intake Oral 480 ml 150 ml # Voids 2 2 Objective General Appearance: WD/WN, no apparent distress Cardiovascular: normal rate, regular rhythm Respiratory/Chest: lungs clear, normal breath sounds, no respiratory distress Abdomen: soft, other - mildly TTP Extremities: normal range of motion 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 Skin: warm/dry Assessment/Plan Assessment/Plan Assessment #R/O Gastritis; high suspicion, anticipate EGD pending COVID results #Colitis --> not septic, wbc wnl, hx of chronic GI issues, Last Colonoscopy was 3 years ago, Hx of Ex Lap s/p Colectomy ( per patient report 2/2 perforated Diverticulitis) #HTN #Renal Nodules, r/o CA, patient w/ established nephro/PCP care #DMII #Chronic Back Pain #Fall, rule out femoral cortical Fx Plan Appreciate Nephro/PCP and GI Stool Studies , COVID is negative Zofran, Morphine IV prn Obtain and reconcile home meds--> for HTN- metoprolol,Atorvastatin, norvasc, For Pain Gabapentin and Soma Hold ASA for now given concern for gastritis Weight based insulin dosing, goal blood sugar less than 180 while in patient, A1C noted Protonix IV BID DVT ppx Diet as tolerated 01/09: Anticipate EGD tomorrow; will get CT of femur to rule out Fx. Bruna Dangelo D.O. January 10, 2020 16:53
--- NOTE | 2020-01-10 17:43 | Surgery Progress Note ---
Surgery Progress Note Subjective Additional Comments went to get up this morning and had a vasovago episode. fell. plain films noted states better now covid negative comfortable plan scope soon non /v/f/c Objective Last 24 Hour Vital Signs Date Time Temp Pulse Resp B/P (MAP) Pulse Ox O2 Delivery O2 Flow Rate FiO2 01/10/20 16:31 98.6 01/10/20 16:00 98.0 55 20 112/65 (81) 93 01/10/20 14:29 98.6 01/10/20 12:00 98.6 57 20 119/73 (88) 94 01/10/20 11:25 97.0 60 20 128/60 (82) 95 01/10/20 10:25 97.0 55 20 133/64 (87) 94 01/10/20 10:24 97.9 01/10/20 09:55 57 135/69 01/10/20 09:55 135/69 01/10/20 09:54 57 135/69 01/10/20 09:00 Room Air 01/10/20 08:00 97.9 57 20 135/69 (91) 95 01/10/20 07:18 75 22 95 01/10/20 06:55 97.9 72 18 127/72 (90) 95 01/10/20 06:45 98.0 75 18 133/75 (94) 95 01/10/20 06:43 98.0 95 Room Air 01/10/20 04:00 98.3 61 18 113/62 (79) 95 01/09/20 22:27 Room Air 01/09/20 20:00 97.9 62 18 127/87 (100) 94 I&O Intake and Output 01/09/20 01/10/20 19:00 07:00 Intake Total 480 ml 150 ml Balance 480 ml 150 ml Intake Oral 480 ml 150 ml # Voids 2 2 Cardiovascular: RSR Respiratory: clear Abdomen: soft, non-tender, present bowel sounds, non-distended Extremities: no edema, no tenderness, no cyanosis Laboratory Tests Test 01/10/20 06:10 White Blood Count 7.3 K/UL (4.8-10.8) Red Blood Count 4.43 M/UL (4.20-5.40) Hemoglobin 11.9 G/DL (12.0-16.0) L Hematocrit 36.4 % (37.0-47.0) L Mean Corpuscular Volume 82 FL (80-99) Mean Corpuscular Hemoglobin 26.9 PG (27.0-31.0) L Mean Corpuscular Hemoglobin Concent 32.7 G/DL (32.0-36.0) Red Cell Distribution Width 13.7 % (11.6-14.8) Platelet Count 207 K/UL (150-450) Mean Platelet Volume 9.6 FL (6.5-10.1) Neutrophils (%) (Auto) 52.4 % (45.0-75.0) Lymphocytes (%) (Auto) 28.0 % (20.0-45.0) Monocytes (%) (Auto) 10.3 % (1.0-10.0) H Eosinophils (%) (Auto) 7.7 % (0.0-3.0) H Basophils (%) (Auto) 1.6 % (0.0-2.0) Sodium Level 143 MMOL/L (136-145) Potassium Level 3.7 MMOL/L (3.5-5.1) Chloride Level 108 MMOL/L (98-107) H Carbon Dioxide Level 24 MMOL/L (21-32) Anion Gap 11 mmol/L (5-15) Blood Urea Nitrogen 13 mg/dL (7-18) Creatinine 1.0 MG/DL (0.55-1.30) Estimat Glomerular Filtration Rate 56.5 mL/min (>60) Glucose Level 117 MG/DL (74-106) H Calcium Level 8.5 MG/DL (8.5-10.1) Phosphorus Level 3.5 MG/DL (2.5-4.9) Magnesium Level 1.8 MG/DL (1.8-2.4) Ferritin 44 NG/ML (8-388) Total Bilirubin 0.2 MG/DL (0.2-1.0) Aspartate Amino Transf (AST/SGOT) 33 U/L (15-37) Alanine Aminotransferase (ALT/SGPT) 26 U/L (12-78) Alkaline Phosphatase 95 U/L (46-116) Total Protein 6.2 G/DL (6.4-8.2) L Albumin 2.9 G/DL (3.4-5.0) L Globulin 3.3 g/dL Albumin/Globulin Ratio 0.9 (1.0-2.7) L Plan Problems: (1) Colitis Assessment & Plan: ABDOMEN: Liver: Hemangioma again noted in the right liver. Stable small hypodensity more inferiorly in the right liver is too small to definitively characterize but may represent another hemangioma. Hepatomegaly. Gallbladder and bile ducts: Unremarkable. No calcified stones. No ductal dilation. Pancreas: Atrophy of the pancreas. No ductal dilation. Spleen: Splenule. Mild splenomegaly. Adrenals: Nonspecific stable bilateral adrenal nodules. Kidneys and ureters: Increased prominence of small hypodensities in the inferior right kidney which measure greater than simple fluid attenuation and are nonspecific. These lesions measure approximately 1.6 cm and 1 cm. Further evaluation could be performed with ultrasound. Punctate nonobstructing right renal stone. No hydronephrosis or ureteral stone. Nonspecific mild bilateral perinephric fat stranding. Lesion off the inferior left kidney seen on prior exam in 2014 is not appreciated on this exam. Stomach and bowel: Prominence of the kirkpatrick of the colon may be secondary to under distention, but element of colitis is not excluded. Prominence of the wall of the stomach may be secondary to under distention versus gastritis. Diverticulosis without evidence of diverticulitis. No bowel obstruction. PELVIS: Appendix: Appendix is not visualized, but no CT evidence of acute appendicitis. Bladder: Decompressed bladder limits evaluation. Reproductive: Prior hysterectomy. ABDOMEN and PELVIS: Intraperitoneal space: Unremarkable. No free air. No significant fluid collection. Bones/joints: Probable small bone islands in the pelvic bones. Degenerative changes of the spine. No acute fracture. No dislocation. Soft tissues: Probable left lateral ventral hernia repair with mild protrusion of bowel loops in this region. There is also protrusion of bowel loops in the lower midline abdomen with evidence of prior hernia repair. Vasculature: Atherosclerotic changes of the vasculature. No aortic aneurysm or dissection. Lymph nodes: Unremarkable. No enlarged lymph nodes. IMPRESSION: 1. Nonspecific stable bilateral adrenal nodules. 2. Increased prominence of small hypodensities in the inferior right kidney which measure greater than simple fluid attenuation and are nonspecific. These lesions measure approximately 1.6 cm and 1 cm. Further evaluation could be performed with ultrasound. Neoplasm such as RCC is not excluded. 3. Punctate nonobstructing right renal stone. No hydronephrosis or ureteral stone. 4. Prominence of the kirkpatrick of the colon may be secondary to under distention, but element of colitis is not excluded. (2) Acute abdominal pain Assessment & Plan: Patient presents with 2 weeks of intermittent abdominal discomfort and worsening abdominal pain for the past 3 days. Currently no nausea vomiting fever chills. CT noted no acute intra-abdominal pathology clearly identified currently Abdominal exam with discomfort mild distention positive bowel sounds but no peritonitis No leukocytosis, no shift, possible UTI IV antibiotics per as per infectious disease IV fluids Okay for diet from surgical standpoint patient passing flatus We will follow with serial abdominal examinations no acute surgical intervention planned thank you for let me participate in patient's care possible EGD pending Norberto Feledr January 10, 2020 17:42
--- NOTE | 2020-01-10 19:19 | NUR ---
HAND-OFF: Report given to LUCERO Negro. Patint resting on bed, side rails up x2, breaks engaged, bed alarm on, call light within reach; fall percussion measures in place; endorsed to PM nurse that patient is high risk for fall;
--- NOTE | 2020-01-10 19:52 | NUR ---
NURSE NOTES: Patient in bed, awake, alert and verbally responsive. Able to make needs known. Respiration is even and unlabored. NO complaint of pain or discomfort noted. IV site noted. Skin is intact, warm and dry to touch. Bed alarm on. Educated patient regarding fall and calling nursing station for assistance. Will change gown to yellow and socks to yellow. Call light is at bedside. Bed in low and locked position. Provided safe environment. Will continue plan of care.
[2020-01-10] MEDS: Dyna-Hex 2% Top Sol 2oz TOPIC SCH (20:00)
[2020-01-10] MEDS: Zolpidem 5mg tab ORAL SCH (21:00)
[2020-01-10] MEDS: TraZODone 50mg tab ORAL SCH (21:14)
[2020-01-10] MEDS: Iron Sucrose 100 MG in NS 55 ML IV SCH (21:15)
[2020-01-10] MEDS: Atorvastatin 80mg tab ORAL SCH (21:15)
--- NOTE | 2020-01-10 22:00 | NUR ---
NURSE NOTES: Unable to give IV antibiotics, iv infiltrated. Charge nurse made aware.
--- NOTE | 2020-01-10 22:01 | NUR ---
NURSE NOTES: Lidoderm Patch removed, charge nurse made aware, spoke to [employer] regarding documentation.
[2020-01-11] VITALS (9 sets, daily range): BP systolic 107–135; BP diastolic 48–69
[2020-01-11] MEDS: DiphenhydrAMINE 50mg/ml Inj IVP PRN ×3 (03:11→21:41)
[2020-01-11] MEDS: Aztreonam Inj 1 GM in NS 55 ML IVPB SCH ×3 (06:48→22:03)
--- NOTE | 2020-01-11 07:02 | NUR ---
HAND-OFF: Report given to Ranjith Murillo.
--- NOTE | 2020-01-11 07:15 | NUR ---
NURSE NOTES: Patient alert x4; on room air, no sing of distress and shortness of breath; no sing of chest pain; IV Left-Hand; bed side Commod within reach; patient encourage to call for help; patient scheduled for EGD and PICC, per-op and GI check list done; patient NPO, sing at the door and patient is aware; side rials up x2, breaks engaged, bed at lowest position, bed alarm on; call light with within reach; will keep monitoring.
--- NOTE | 2020-01-11 07:57 | NUR ---
RD ASSESSMENT & RECOMMENDATIONS SEE CARE ACTIVITY FOR COMPLETE ASSESSMENT DAILY ESTIMATED NEEDS: Needs based on GI, obese 71.5kg abw 20-25 kcals/kg 7032-3794 total kcals 1-1.2 g protein/kg 72-86 g total protein 25-30 mL/kg 6561-0013 total fluid mLs NUTRITION DIAGNOSIS: Altered GI function r/t etiology unknown as evidenced by h/o colectomy, GERD, adm w/ N/V/D, now NPO. CURRENT DIET: NPO for EGD PO DIET RECOMMENDATIONS: As able->LOW FIBER/SOFT DIET ADDITIONAL RECOMMENDATIONS: 1) F/up post EGD 2) Obtain a calibrated bed scale wt 3) Rec ssi / coverage w/ accuchecks
[2020-01-11] MEDS: Metoprolol Tartrate 50mg tab ORAL SCH (08:35)
[2020-01-11] MEDS: Lisinopril 10mg tab ORAL SCH (08:35)
[2020-01-11] MEDS: Pantoprazole Inj IVP SCH ×2 (08:36→23:33)
[2020-01-11] MEDS: Docusate 100mg cap ORAL SCH ×2 (08:36→17:28)
[2020-01-11] MEDS: Enoxaparin 40mg Inj SUBQ SCH (08:39)
[2020-01-11] MEDS ORDERED: Midazolam 2mg/2ml Inj IVP PRN (08:45)
[2020-01-11] MEDS ORDERED: DiphenhydrAMINE 50mg/ml Inj IVP PRN (08:45)
[2020-01-11] MEDS ORDERED: fentaNYL 100 mcg/2 mL IV PRN (08:45)
[2020-01-11] MEDS ORDERED: Atropine Inj 1mg/10ml Syr IV PRN (08:45)
--- NOTE | 2020-01-11 08:53 | NUR ---
NURSE NOTES: Patient left the floor for CT;
--- NOTE | 2020-01-11 09:31 | NUR ---
NURSE NOTES: Patient back from CT;
--- NOTE | 2020-01-11 09:58 | Pre-Procedure Note/Attestation ---
Pre-Procedure Note/Attestation Complete Prior to Procedure Planned Procedure: not applicable Procedure Narrative: egd Indications for Procedure Pre-Operative Diagnosis: GERD Attestation I attest that I discussed the nature of the procedure; its benefits; risks and complications; and alternatives (and the risks and benefits of such alternatives ), prior to the procedure, with the patient (or the patient's legal footwear sales representative). I attest that, if there was a reasonable possibility of needing a blood transfusion, the patient (or the patient's legal footwear sales representative) was given the [facility] standardized written summary, pursuant to the [place] Blood Safety Act ([place] Health and Safety Code # 1645, as amended). I attest that I re-evaluated the patient just prior to the surgery and that there has been no change in the patient's H&P, except as documented below: Sunny Brandt MD January 11, 2020 09:58
--- NOTE | 2020-01-11 10:17 | Diagnostic Imaging Report ---
EXAM: CT CT Femur no Contrast R CLINICAL HISTORY: Status post fall. Evaluate fracture. TECHNIQUE: Axial images obtained through the right femur with subsequent sagittal and coronal reformat images. All CT scans at this facility hospitals are performed using dose modulation techniques as appropriate to a performed exam including the following: automated exposure control with adjustment of the mA and/or kV according to patient size. RADIATION DOSE: CTDIvol: 7.7 mGy DLP: 524.5 mGy-cm Dose information generated by the CT scanner is available in PACS. COMPARISON: None FINDINGS: Patient has a total knee prosthesis in place. Metal artifacts noted in the region of the knee. No sign of fracture or loosening of the prosthesis. The right femur appears intact to the extent visualized. Alignment of the hip is anatomic. There is fatty atrophy of the anterior quadriceps muscular bundle. IMPRESSION: NO ACUTE FRACTURE OR MALALIGNMENT DEMONSTRATED. RIGHT KNEE PROSTHESIS.
[2020-01-11] MEDS ORDERED: Lidocaine 1% MPF 10mg/ml 5ml ONE (10:30)
--- NOTE | 2020-01-11 10:33 | Anethesia Preoperative Eval ---
Anesthesia Pre-op PMH/ROS General Date of Evaluation: January 11, 2020 Time of Evaluation: 10:25 Anesthesiologist: lisbeth ASA Score: ASA 3 Mallampati Score Class I : Soft palate, uvula, fauces, pillars visible Class II: Soft palate, uvula, fauces visible Class III: Soft palate, base of uvula visible Class IV: Only hard plate visible Mallampati Classification: Class II Surgeon: kristal Diagnosis: colitis, intractable abdominal pain Surgical Procedure: egd Anesthesia History: none Family History: no anesthesia problems Allergies: Coded Allergies: CEFOTETAN (Verified Allergy, Severe, SHORTNESS OF BREATH, 03/20/12) CEFOTETAN DISODIUM (Unverified Allergy, Severe, 07/29/12) QUINOLONES (Verified Allergy, Mild, Rash, 03/20/12) CEFAZOLIN (Verified Allergy, Unknown, 07/01/09) CEFOTIAM (Verified Allergy, Unknown, Anaphylaxis, 12/07/16) CIPROFLOXACIN (Verified Allergy, Unknown, Hives, 12/07/16) CIPROFLOXACIN HCL (Verified Allergy, Unknown, Hives, 12/07/16) DEXTROSE-WATER (Unverified Allergy, Unknown, 12/07/16) LEVOFLOXACIN (Verified Allergy, Unknown, 12/07/16) Uncoded Allergies: SUFTAN (Allergy, Unknown, 12/07/16) Medications: see eMAR Patient NPO?: Yes Past Medical History Cardiovascular: Reports: HTN Pulmonary: Reports: other - covid-19 negative Gastrointestinal/Genitourinary: Reports: GERD, other - uti, colitis, diverticulitis Neurologic/Psychiatric: Reports: CVA Endocrine: Reports: DM HEENT: Reports: cataract (L), cataract (R) Musculoskeletal/Integumentary: Reports: OA, other - right shoulder strain, ankle sprain, foot fx, bilateral hip sx, bilateral tka Other: obesity Anesthesia Pre-op Phys. Exam Physician Exam Last Vital Signs Date Time Temp Pulse Resp B/P (MAP) Pulse Ox O2 Delivery O2 Flow Rate FiO2 01/11/20 09:05 98.1 01/11/20 09:00 Room Air 01/11/20 08:36 63 134/57 01/11/20 08:00 18 96 Constitutional: NAD Neurologic: CN 2-12 intact Cardiovascular: RRR Respiratory: CTA Gastrointestinal: S/NT/ND Airway Exam Mallampati Score: Class II MO: limited Neck: short TMD: 2fb ROM: limited Anesthesia Pre-op A/P Labs Last Vital Signs Date Time Temp Pulse Resp B/P (MAP) Pulse Ox O2 Delivery O2 Flow Rate FiO2 01/11/20 09:05 98.1 01/11/20 09:00 Room Air 01/11/20 08:36 63 134/57 01/11/20 08:00 18 96 Risk Assessment & Plan Assessment: asa3 Plan: mac Status Change Before Surgery: No Pre-Antibiotics Drug: Maryam Palomares MD January 11, 2020 10:33
--- NOTE | 2020-01-11 10:35 | Surgery Progress Note ---
Surgery Progress Note Subjective Symptoms: improved Additional Comments CT noted Patient has a total knee prosthesis in place. Metal artifacts noted in the region of the knee. No sign of fracture or loosening of the prosthesis. The right femur appears intact to the extent visualized. Alignment of the hip is anatomic. There is fatty atrophy of the anterior quadriceps muscular bundle. IMPRESSION: NO ACUTE FRACTURE OR MALALIGNMENT DEMONSTRATED. RIGHT KNEE PROSTHESIS. Objective Last 24 Hour Vital Signs Date Time Temp Pulse Resp B/P (MAP) Pulse Ox O2 Delivery O2 Flow Rate FiO2 01/11/20 09:05 98.1 01/11/20 09:00 Room Air 01/11/20 08:36 63 134/57 01/11/20 08:35 63 134/57 01/11/20 08:35 134/57 01/11/20 08:00 98.1 63 18 134/57 (82) 96 01/11/20 04:00 98.1 60 16 127/69 (88) 98 01/11/20 00:00 98.3 60 20 115/65 (82) 96 01/10/20 21:00 Room Air 01/10/20 20:00 97.9 63 20 113/68 (83) 95 01/10/20 16:31 98.6 01/10/20 16:00 98.0 55 20 112/65 (81) 93 01/10/20 14:29 98.6 01/10/20 12:00 98.6 57 20 119/73 (88) 94 01/10/20 11:25 97.0 60 20 128/60 (82) 95 I&O Intake and Output 01/10/20 01/11/20 19:00 07:00 Intake Total 1110 ml 560 ml Balance 1110 ml 560 ml Intake Oral 900 ml 500 ml IV Total 210 ml 60 ml # Voids 3 3 Dressing: other Wound: other Drains: other Cardiovascular: RSR Respiratory: decreased breath sounds Abdomen: soft, non-tender, present bowel sounds Extremities: no cyanosis Plan Problems: (1) Colitis Assessment & Plan: ABDOMEN: Liver: Hemangioma again noted in the right liver. Stable small hypodensity more inferiorly in the right liver is too small to definitively characterize but may represent another hemangioma. Hepatomegaly. Gallbladder and bile ducts: Unremarkable. No calcified stones. No ductal dilation. Pancreas: Atrophy of the pancreas. No ductal dilation. Spleen: Splenule. Mild splenomegaly. Adrenals: Nonspecific stable bilateral adrenal nodules. Kidneys and ureters: Increased prominence of small hypodensities in the inferior right kidney which measure greater than simple fluid attenuation and are nonspecific. These lesions measure approximately 1.6 cm and 1 cm. Further evaluation could be performed with ultrasound. Punctate nonobstructing right renal stone. No hydronephrosis or ureteral stone. Nonspecific mild bilateral perinephric fat stranding. Lesion off the inferior left kidney seen on prior exam in 2014 is not appreciated on this exam. Stomach and bowel: Prominence of the kirkpatrick of the colon may be secondary to under distention, but element of colitis is not excluded. Prominence of the wall of the stomach may be secondary to under distention versus gastritis. Diverticulosis without evidence of diverticulitis. No bowel obstruction. PELVIS: Appendix: Appendix is not visualized, but no CT evidence of acute appendicitis. Bladder: Decompressed bladder limits evaluation. Reproductive: Prior hysterectomy. ABDOMEN and PELVIS: Intraperitoneal space: Unremarkable. No free air. No significant fluid collection. Bones/joints: Probable small bone islands in the pelvic bones. Degenerative changes of the spine. No acute fracture. No dislocation. Soft tissues: Probable left lateral ventral hernia repair with mild protrusion of bowel loops in this region. There is also protrusion of bowel loops in the lower midline abdomen with evidence of prior hernia repair. Vasculature: Atherosclerotic changes of the vasculature. No aortic aneurysm or dissection. Lymph nodes: Unremarkable. No enlarged lymph nodes. IMPRESSION: 1. Nonspecific stable bilateral adrenal nodules. 2. Increased prominence of small hypodensities in the inferior right kidney which measure greater than simple fluid attenuation and are nonspecific. These lesions measure approximately 1.6 cm and 1 cm. Further evaluation could be performed with ultrasound. Neoplasm such as RCC is not excluded. 3. Punctate nonobstructing right renal stone. No hydronephrosis or ureteral stone. 4. Prominence of the kirkpatrick of the colon may be secondary to under distention, but element of colitis is not excluded. (2) Acute abdominal pain Assessment & Plan: Patient presents with 2 weeks of intermittent abdominal discomfort and worsening abdominal pain for the past 3 days. Currently no nausea vomiting fever chills. CT noted no acute intra-abdominal pathology clearly identified currently Abdominal exam with discomfort mild distention positive bowel sounds but no peritonitis No leukocytosis, no shift, possible UTI IV antibiotics per as per infectious disease IV fluids Okay for diet from surgical standpoint patient passing flatus We will follow with serial abdominal examinations no acute surgical intervention planned thank you for let me participate in patient's care possible EGD pending covid CT noted for fall Patient has a total knee prosthesis in place. Metal artifacts noted in the region of the knee. No sign of fracture or loosening of the prosthesis. The right femur appears intact to the extent visualized. Alignment of the hip is anatomic. There is fatty atrophy of the anterior quadriceps muscular bundle. IMPRESSION: NO ACUTE FRACTURE OR MALALIGNMENT DEMONSTRATED. RIGHT KNEE PROSTHESIS. Norberto Marie January 11, 2020 10:35
--- NOTE | 2020-01-11 10:40 | NUR ---
NURSE NOTES: Patient left the floor to GI lab; patient is stable upon leaving the floor;
[2020-01-11] MEDS ORDERED: NS 500ML IVPB ONE (10:45)
--- NOTE | 2020-01-11 10:55 | Endoscopy Procedure Note ---
Endoscopy Procedure Note General Indication for Procedure: abd pain Procedures Performed: EGD Operative Findings/Diagnosis: gastritis Specimen: yes Pt Tolerated Procedure Well: Yes Estimated Blood Loss: none Anesthesia Anesthesiologist: mathieu Anesthesia: MAC Inserted Devices Implant(s) used?: No GI Core Measures 50 yrs or older w/o bx or poly: Not Applicable 10yrs. F/U recommended: Not Applicable Sunny Brandt MD January 11, 2020 10:55
--- NOTE | 2020-01-11 11:23 | Internal Med Progress Note ---
Subjective Date of Service: January 11, 2020 Physician Name Bruna Dangelo Attending Physician Guy Reyes MD Current Medications Medications (Trade) Dose Ordered Sig/Iris Route PRN Reason Start Time Stop Time Status Last Admin Dose Admin Acetaminophen (Tylenol) 650 mg Q4H PRN ORAL Mild Pain (Pain Scale 1-3) 01/11/20 08:45 UNV Acetaminophen (Tylenol) 650 mg Q6H PRN ORAL For Headache 01/06/20 18:15 02/05/20 18:14 Acetaminophen/ Hydrocodone Bitart ([place] 10/325) 1 tab Q4H PRN ORAL For Pain 01/06/20 18:15 01/13/20 18:14 01/06/20 18:22 Al Hydroxide/Mg Hydroxide (Mylanta) 15 ml Q1H PRN ORAL gi upset 01/11/20 08:45 UNV Amlodipine Besylate (Norvasc) 5 mg DAILY ORAL 01/06/20 18:15 02/05/20 18:14 01/11/20 08:36 Atorvastatin Calcium (Lipitor) 40 mg BEDTIME ORAL 01/06/20 21:00 04/05/20 20:59 01/10/20 21:15 Atropine Sulfate (Atropine) 0.5 mg Q5M PRN IV bpm less than 45 01/11/20 08:45 UNV Aztreonam 1 gm/ Sodium Chloride 55 ml @ 110 mls/hr Q8H IVPB 01/06/20 23:00 01/13/20 22:59 01/10/20 16:01 Baclofen (Lioresal) 10 mg BEDTIME ORAL 01/08/20 21:00 02/07/20 20:59 01/10/20 21:14 Carisoprodol (Soma) 350 mg BID ORAL 01/06/20 18:15 02/05/20 18:14 01/11/20 08:35 Chlorhexidine Gluconate (Marybeth-Hex 2%) 1 applic DAILY@2000 TOPIC 01/10/20 20:00 04/09/20 19:59 01/10/20 20:00 Clonidine HCl (Catapres Tab) 0.1 mg Q4H PRN ORAL SBP > 180 01/06/20 18:15 04/05/20 18:14 Diphenhydramine HCl (Benadryl) 25 mg Q15M PRN IVP Itching 01/11/20 08:45 UNV Diphenhydramine HCl (Benadryl) 25 mg Q6H PRN IVP Itching 01/06/20 21:15 02/05/20 21:14 01/11/20 03:11 Docusate Sodium (Colace) 100 mg TIDPRN PRN ORAL Constipation 01/06/20 18:15 02/05/20 18:14 Docusate Sodium (Colace) 200 mg BID ORAL 01/06/20 18:15 02/05/20 18:14 01/11/20 08:36 Enoxaparin Sodium (Lovenox) 40 mg DAILY SUBQ 01/06/20 18:15 04/05/20 18:14 01/10/20 09:57 Fentanyl Citrate (Sublimaze 100 mcg/2 mL) 25 mcg Q10M PRN IV Moderate Pain (Pain Scale 4-6) 01/11/20 08:45 UNV Gabapentin (Neurontin) 800 mg THREE TIMES A DAY ORAL 01/10/20 18:00 02/05/20 17:59 01/11/20 08:35 Hydralazine HCl (Apresoline) 5 mg Q30M PRN IV SBP>160 OR___/DBP>90 OR___ 01/11/20 08:45 UNV Hydralazine HCl (Apresoline) 10 mg Q6H PRN ORAL SBP > 160 01/06/20 18:15 04/05/20 18:14 Iron Sucrose 100 mg/Sodium Chloride 60 ml @ 240 mls/hr BEDTIME IV 01/09/20 21:00 01/13/20 21:14 01/10/20 21:15 Lidocaine (Lidoderm 5% PATCH) 1 patch Q24H TDERMAL 01/11/20 09:00 04/10/20 08:59 01/11/20 08:37 Lisinopril (ZestriL) 10 mg DAILY ORAL 01/06/20 18:15 02/05/20 18:14 01/11/20 08:35 Lorazepam (Ativan) 1 mg BIDPRN PRN ORAL Agitation 01/06/20 18:15 01/13/20 18:14 Metoprolol Tartrate (Lopressor) 50 mg DAILY ORAL 01/07/20 09:00 04/06/20 08:59 01/11/20 08:35 Metronidazole 100 ml @ 100 mls/hr Q8HR IVPB 01/06/20 22:00 01/13/20 21:59 01/10/20 14:36 Midazolam HCl (Versed 2mg/2ml vial) 1 mg Q15M PRN IVP For Anxiety 01/11/20 08:45 UNV Morphine Sulfate (Morphine Sulfate) 2 mg Q4H PRN IVP For Pain 01/06/20 18:15 01/13/20 18:14 01/10/20 21:16 Ondansetron HCl (Zofran) 4 mg Q1H PRN IVP Nausea & Vomiting 01/11/20 08:45 UNV Ondansetron HCl (Zofran) 4 mg Q6H PRN IVP Nausea & Vomiting 01/06/20 18:30 02/05/20 18:29 01/11/20 08:36 Pantoprazole (Protonix) 40 mg EVERY 12 HOURS IVP 01/08/20 09:00 02/07/20 08:59 01/11/20 08:36 Sodium Chloride 1,000 ml @ 10 mls/hr Q24H IVLG 01/11/20 08:42 01/11/20 10:41 UNV Trazodone HCl (Desyrel) 50 mg BEDTIME ORAL 01/06/20 21:00 02/05/20 20:59 01/10/20 21:14 Zolpidem Tartrate (Ambien) 5 mg QHS ORAL 01/06/20 21:00 01/13/20 20:59 01/09/20 20:34 Allergies: Coded Allergies: CEFOTETAN (Verified Allergy, Severe, SHORTNESS OF BREATH, 03/20/12) CEFOTETAN DISODIUM (Unverified Allergy, Severe, 07/29/12) QUINOLONES (Verified Allergy, Mild, Rash, 03/20/12) CEFAZOLIN (Verified Allergy, Unknown, 07/01/09) CEFOTIAM (Verified Allergy, Unknown, Anaphylaxis, 12/07/16) CIPROFLOXACIN (Verified Allergy, Unknown, Hives, 12/07/16) CIPROFLOXACIN HCL (Verified Allergy, Unknown, Hives, 12/07/16) DEXTROSE-WATER (Unverified Allergy, Unknown, 12/07/16) LEVOFLOXACIN (Verified Allergy, Unknown, 12/07/16) Uncoded Allergies: SUFTAN (Allergy, Unknown, 12/07/16) Subjective COVID is negative; CT R leg negative for Fx as concern per imaging. EGD today. Patient still with pain. Will obtain PT eval after EGD given fall Objective Last Vital Signs Date Time Temp Pulse Resp B/P (MAP) Pulse Ox O2 Delivery O2 Flow Rate FiO2 01/11/20 09:05 98.1 01/11/20 09:00 Room Air 01/11/20 08:36 63 134/57 01/11/20 08:00 18 96 Intake and Output 01/10/20 01/11/20 19:00 07:00 Intake Total 1110 ml 560 ml Balance 1110 ml 560 ml Intake Oral 900 ml 500 ml IV Total 210 ml 60 ml # Voids 3 3 Objective General Appearance: WD/WN, no apparent distress Cardiovascular: normal rate, regular rhythm Respiratory/Chest: lungs clear, normal breath sounds, no respiratory distress Abdomen: soft, other - mildly TTP Extremities: normal range of motion 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 Skin: warm/dry Assessment/Plan Assessment/Plan Assessment #R/O Gastritis;Pending EGD #Colitis --> not septic, wbc wnl, hx of chronic GI issues, Last Colonoscopy was 3 years ago, Hx of Ex Lap s/p Colectomy ( per patient report 2/2 perforated Diverticulitis) #HTN #Renal Nodules, r/o CA, patient w/ established nephro/PCP care #DMII #Chronic Back Pain #Fall, rule out femoral cortical Fx --> CT negative for Fx Plan Appreciate Nephro/PCP and GI Pending EGD Stool Studies , COVID is negative Zofran, Morphine IV prn Obtain and reconcile home meds--> for HTN- metoprolol,Atorvastatin, norvasc, For Pain Gabapentin and Soma Hold ASA for now given concern for gastritis Weight based insulin dosing, goal blood sugar less than 180 while in patient, A1C noted Protonix IV BID DVT ppx Diet as tolerated 01/09: Anticipate EGD tomorrow; will get CT of femur to rule out Fx. 01/10: EGD today. PT tomorrow Bruna Dangelo D.O. January 11, 2020 11:23
[2020-01-11] MEDS: Morphine Sulfate 2mg/ml Inj(IV/IM USE ONLY) IVP PRN ×2 (11:55→21:41)
--- NOTE | 2020-01-11 14:08 | NUR ---
CASE MANAGEMENT:REVIEW SI;COLITIS. GASTRITIS RULE OUT. 98.3 63 20 134/57 96% ON RA IS;IRON SUCROSE IV HS PROTONIX IV Q12 HRS AZTREONAM IV Q8 HRS FLAGYL IV Q8 HRS ZOFRAN IVQ6 HRS PRN NORCO PO Q4 HRS PRN LOVENOX SUBQ QD LISINOPRIL PO QD MED SURG STATUS DCP;FROM HOME PLAN;EGD TODAY
--- NOTE | 2020-01-11 15:12 | NUR ---
*-* INSURANCE *-* UPDATED CLINICALS AND REVIEWS HAVE BEEN FAXED TO: [employer] P: [phone] F: [phone] (FAX CLINICALS HERE AND TO [employer]) & [employer] AUTH# [id number] FAX CLINICALS TO:[phone]
--- NOTE | 2020-01-11 19:15 | Procedure Note ---
DATE OF PROCEDURE: 01/11/2020 SURGEON: Sunny Brandt MD. PROCEDURE: Upper endoscopy with biopsy. ANESTHESIA: Dr. Vincent. INSTRUMENT: Olympus adult flexible upper endoscope. INDICATION: Dysphagia, abdominal pain. REASON FOR PROCEDURE: The procedure, risks, benefits, and possible consequences, including hemorrhage, aspiration, perforation and infection, and alternative treatments, were explained to the patient/legal guardian by Dr. Sunny Brandt and the patient/legal guardian understood and accepted these risks. DESCRIPTION OF PROCEDURE: After informed consent was obtained and patient was adequately sedated, Olympus upper endoscope was advanced from mouth in to the second portion of the duodenum and retroflexion was performed in the stomach. GE junction was found to be about 40 cm from the incisors. No evidence of any esophagitis or esophageal varices. In the stomach, there was streaky erythema in the antrum region. There was also 1 polyp in the antrum, inflammatory looking. Biopsy from this polyp was obtained. Patient had evidence of gastritis. Biopsy from the antrum was obtained to rule out H. pylori infection. The rest of upper endoscopic examination grossly looked within normal limits. At this time, the scope was retrieved and procedure was terminated. SUMMARY OF FINDINGS: 1. Streaky erythema of the antrum. 2. Gastritis, status post biopsy. 3. Gastric polyps, status post biopsy. RECOMMENDATIONS: Follow up biopsy results and treat accordingly. I want to thank, Dr. Reyes, for this kind referral. Sunny Brandt M.D. DR: IRINEO JOB#: [id number] CC: Guy Reyes M.D.; Fax#: [phone]
--- NOTE | 2020-01-11 19:27 | NUR ---
HAND-OFF: Report given to LUCERO Cruz. Patient is resting, side rails up x2, breaks engaged, bed at lowest position, bed alarm on; endorsed to the incoming nurse that patient is risk for fall;
[2020-01-11] MEDS: Dyna-Hex 2% Top Sol 2oz TOPIC SCH (20:00)
[2020-01-11] MEDS: Zolpidem 5mg tab ORAL SCH (21:00)
[2020-01-11] MEDS: Atorvastatin 80mg tab ORAL SCH (21:42)
[2020-01-11] MEDS: TraZODone 50mg tab ORAL SCH (21:43)
[2020-01-11] MEDS: Iron Sucrose 100 MG in NS 55 ML IV SCH (23:41)
[2020-01-12] VITALS: BP 119/84
[2020-01-12] MEDS: Morphine Sulfate 2mg/ml Inj(IV/IM USE ONLY) IVP PRN ×3 (01:35→09:47)
[2020-01-12] MEDS: DiphenhydrAMINE 50mg/ml Inj IVP PRN (05:49)
[2020-01-12] MEDS: Aztreonam Inj 1 GM in NS 55 ML IVPB SCH ×2 (06:09→15:00)
[2020-01-12 06:20] LABS: BASOPHILS % (AUTO) 0.9 % (0.0-2.0); EOSINOPHILS % (AUTO) 5.1 % (0.0-3.0); HEMOGLOBIN 11.4 G/DL (12.0-16.0); LYMPHOCYTES % (AUTO) 22.2 % (20.0-45.0); MEAN CORPUSCULAR VOLUME 82 FL (80-99); MONOCYTES % (AUTO) 8.6 % (1.0-10.0); NEUTROPHILS % (AUTO) 63.2 % (45.0-75.0); PLATELET COUNT 200 K/UL (150-450); RED BLOOD COUNT 4.24 M/UL (4.20-5.40); RED CELL DISTRIBUTION WIDTH 14.6 % (11.6-14.8); WHITE BLOOD COUNT 10.1 K/UL (4.8-10.8)
--- NOTE | 2020-01-12 06:25 | 48 Hour Post Anesthesia Eval ---
Post Anesthesia Evaluation Procedure: egd w/bx Date of Evaluation: January 11, 2020 Time of Evaluation: 11:10 Blood Pressure Systolic: 128 0: 56 Pulse Rate: 51 Respiratory Rate: 18 Temperature (Fahrenheit): 97.1 O2 Sat by Pulse Oximetry: 99 Airway: patent Nausea: No Vomiting: No Pain Intensity: 0 Hydration Status: adequate Cardiopulmonary Status: stable Mental Status/LOC: patient returned to baseline Post-Anesthesia Complications: none Follow-up care needed: N/A Maryam Mora MD January 12, 2020 06:25
--- NOTE | 2020-01-12 06:25 | Immediate Post-Op Evaluation ---
Immediate Post-Op Evalulation Immediate Post-Op Evalulation Procedure: egd w/bx Date of Evaluation: January 11, 2020 Blood Products: none Estimated Blood Loss: negligible Blood Pressure Systolic: 109 Blood Pressure Diastolic: 48 Pulse Rate: 50 Respiratory Rate: 18 O2 Sat by Pulse Oximetry: 100 Temperature (Fahrenheit): 97.1 Pain Score (1-10): 0 Nausea: No Vomiting: No Complications none Patient Status: awake, reacts Hydration Status: adequate Drug: Maryam Palomares MD January 12, 2020 06:25
[2020-01-12 06:55] LABS: ALBUMIN 3.1 G/DL (3.4-5.0); ALBUMIN/GLOBULIN RATIO 0.9 (1.0-2.7); ALKALINE PHOSPHATASE 100 U/L (46-116); ANION GAP 10 mmol/L (5-15); ASPARTATE AMINO TRANSFERASE 39 U/L (15-37); BILIRUBIN,TOTAL 0.1 MG/DL (0.2-1.0); BLOOD UREA NITROGEN 9 mg/dL (7-18); CALCIUM 8.6 MG/DL (8.5-10.1); CARBON DIOXIDE 25 MMOL/L (21-32); CHLORIDE 107 MMOL/L (98-107); CREATININE 0.9 MG/DL (0.55-1.30); PHOSPHORUS 2.6 MG/DL (2.5-4.9); POTASSIUM 3.8 MMOL/L (3.5-5.1); SODIUM 142 MMOL/L (136-145)
--- NOTE | 2020-01-12 07:25 | NUR ---
NURSE NOTES: Received patient in bed. Awake, A/O x4. On room air, respirations unlabored. Patient denies pain at this time. IV in the right hand, site intact. Bed low and locked, call light within reach. Cane within reach for ambulation.
[2020-01-12 07:50] LABS: ALANINE AMINOTRANSFERASE 37 U/L (12-78)
--- NOTE | 2020-01-12 07:56 | NUR ---
HAND-OFF: Report given to LUCERO Wallis.
[2020-01-12 08:00] VITALS: BP 127/58
[2020-01-12] MEDS ORDERED: Lidocaine 1% Plain 30 ml INJ PRN (08:04)
[2020-01-12] MEDS ORDERED: Heparin1,000 units/500ml Premix(Conc:2 units/ml) INJ PRN (08:04)
[2020-01-12] MEDS: Docusate 100mg cap ORAL SCH (08:32)
[2020-01-12] MEDS: Metoprolol Tartrate 50mg tab ORAL SCH (08:32)
[2020-01-12] MEDS: Lisinopril 10mg tab ORAL SCH (08:33)
[2020-01-12] MEDS: Enoxaparin 40mg Inj SUBQ SCH (08:44)
[2020-01-12] MEDS: Pantoprazole Inj IVP SCH (08:44)
--- NOTE | 2020-01-12 09:11 | General Progress Note ---
Assessment/Plan Assessment/Plan: Assessment/Plan Assessment/Plan: Assessment - diarrhea - abd pain - diverticulosis - anemia -sig GERD and esophageal problems per patient -Anemia Recommendations - f/u stool tests - follow labs and exam -on ppi and baclofen - soft diet -s/p EGD: SUMMARY OF FINDINGS: 1. Streaky erythema of the antrum. 2. Gastritis, status post biopsy. 3. Gastric polyps, status post biopsy. pending PICC line placement for today Subjective ROS Limited/Unobtainable: Yes Allergies: Coded Allergies: CEFOTETAN (Verified Allergy, Severe, SHORTNESS OF BREATH, 03/20/12) CEFOTETAN DISODIUM (Unverified Allergy, Severe, 07/29/12) QUINOLONES (Verified Allergy, Mild, Rash, 03/20/12) CEFAZOLIN (Verified Allergy, Unknown, 07/01/09) CEFOTIAM (Verified Allergy, Unknown, Anaphylaxis, 12/07/16) CIPROFLOXACIN (Verified Allergy, Unknown, Hives, 12/07/16) CIPROFLOXACIN HCL (Verified Allergy, Unknown, Hives, 12/07/16) DEXTROSE-WATER (Unverified Allergy, Unknown, 12/07/16) LEVOFLOXACIN (Verified Allergy, Unknown, 12/07/16) Uncoded Allergies: SUFTAN (Allergy, Unknown, 12/07/16) Objective Last 24 Hour Vital Signs Date Time Temp Pulse Resp B/P (MAP) Pulse Ox O2 Delivery O2 Flow Rate FiO2 01/12/20 08:33 127/58 01/12/20 08:33 63 127/58 01/12/20 08:32 63 127/58 01/12/20 00:00 97.5 61 18 119/84 (96) 95 01/11/20 21:00 Room Air 01/11/20 17:58 96.8 01/11/20 16:00 96.8 56 18 107/56 (73) 98 01/11/20 12:25 97.3 01/11/20 11:25 97.3 52 21 132/59 96 Room Air 01/11/20 11:20 53 19 135/56 99 Room Air 01/11/20 11:15 50 16 119/55 99 Room Air 01/11/20 11:10 51 18 128/56 100 Nasal Cannula 3 01/11/20 11:04 97.1 50 19 109/48 100 Nasal Cannula 3 Intake and Output 01/11/20 01/12/20 19:00 07:00 Intake Total 265 ml 200 ml Output Total 1200 ml Balance -935 ml 200 ml Intake Oral 140 ml 200 ml IV Total 125 ml Output Urine Total 1200 ml Estimated Blood Loss 0 ml # Voids 3 4 Laboratory Tests 01/12/20 05:40: White Blood Count 10.1, Red Blood Count 4.24, Hemoglobin 11.4L, Hematocrit 35.0L , Mean Corpuscular Volume 82, Mean Corpuscular Hemoglobin 26.8L, Mean Corpuscular Hemoglobin Concent 32.5, Red Cell Distribution Width 14.6, Platelet Count 200, Mean Platelet Volume 9.7, Neutrophils (%) (Auto) 63.2, Lymphocytes (% ) (Auto) 22.2, Monocytes (%) (Auto) 8.6, Eosinophils (%) (Auto) 5.1H, Basophils (%) (Auto) 0.9, Sodium Level 142, Potassium Level 3.8, Chloride Level 107, Carbon Dioxide Level 25, Anion Gap 10, Blood Urea Nitrogen 9, Creatinine 0.9, Estimat Glomerular Filtration Rate > 60, Glucose Level 124H, Calcium Level 8.6, Phosphorus Level 2.6, Magnesium Level 1.7L, Total Bilirubin 0.1L, Aspartate Amino Transf (AST/SGOT) 39H, Alanine Aminotransferase (ALT/SGPT) 37, Alkaline Phosphatase 100, Total Protein 6.4, Albumin 3.1L, Globulin 3.3, Albumin/ Globulin Ratio 0.9L Height (Feet): 5 Height (Inches): 5.00 Weight (Pounds): 239 General Appearance: alert EENT: normal ENT inspection Neck: normal alignment Cardiovascular: normal rate Respiratory/Chest: decreased breath sounds Abdomen: normal bowel sounds, non tender, soft Extremities: non-tender Sunny Brandt MD January 12, 2020 09:11
[2020-01-12] MEDS ORDERED: Gadavist 7.5mMol/7.5ml vial IV PRN (11:30)
[2020-01-12 12:00] VITALS: BP 124/61
--- NOTE | 2020-01-12 12:04 | Internal Med Progress Note ---
Subjective Date of Service: January 12, 2020 Physician Name Bruna Dangelo Attending Physician Guy Reyes MD Current Medications Medications (Trade) Dose Ordered Sig/Iris Route PRN Reason Start Time Stop Time Status Last Admin Dose Admin Acetaminophen (Tylenol) 650 mg Q6H PRN ORAL For Headache 01/06/20 18:15 02/05/20 18:14 Acetaminophen/ Hydrocodone Bitart (Haines 10/325) 1 tab Q4H PRN ORAL For Pain 01/06/20 18:15 01/13/20 18:14 01/06/20 18:22 Amlodipine Besylate (Norvasc) 5 mg DAILY ORAL 01/06/20 18:15 02/05/20 18:14 01/12/20 08:33 Atorvastatin Calcium (Lipitor) 40 mg BEDTIME ORAL 01/06/20 21:00 04/05/20 20:59 01/11/20 21:42 Aztreonam 1 gm/ Sodium Chloride 55 ml @ 110 mls/hr Q8H IVPB 01/06/20 23:00 01/13/20 22:59 01/10/20 16:01 Baclofen (Lioresal) 10 mg BEDTIME ORAL 01/08/20 21:00 02/07/20 20:59 01/11/20 23:33 Carisoprodol (Soma) 350 mg BID ORAL 01/06/20 18:15 02/05/20 18:14 01/12/20 08:33 Chlorhexidine Gluconate (Marybeth-Hex 2%) 1 applic DAILY@2000 TOPIC 01/10/20 20:00 04/09/20 19:59 01/10/20 20:00 Clonidine HCl (Catapres Tab) 0.1 mg Q4H PRN ORAL SBP > 180 01/06/20 18:15 04/05/20 18:14 Diphenhydramine HCl (Benadryl) 25 mg Q6H PRN IVP Itching 01/06/20 21:15 02/05/20 21:14 01/12/20 05:49 Docusate Sodium (Colace) 100 mg TIDPRN PRN ORAL Constipation 01/06/20 18:15 02/05/20 18:14 Docusate Sodium (Colace) 200 mg BID ORAL 01/06/20 18:15 02/05/20 18:14 01/12/20 08:32 Enoxaparin Sodium (Lovenox) 40 mg DAILY SUBQ 01/06/20 18:15 04/05/20 18:14 01/10/20 09:57 Gabapentin (Neurontin) 800 mg THREE TIMES A DAY ORAL 01/10/20 18:00 02/05/20 17:59 01/12/20 08:33 Heparin Sodium/ Sodium Chloride (Heparin 1000 units/500ml Premix) 1,000 unit ONCE PRN INJ PROCEDURE 01/12/20 08:04 01/12/20 23:59 Hydralazine HCl (Apresoline) 10 mg Q6H PRN ORAL SBP > 160 01/06/20 18:15 04/05/20 18:14 Iron Sucrose 100 mg/Sodium Chloride 60 ml @ 240 mls/hr BEDTIME IV 01/09/20 21:00 01/13/20 21:14 01/11/20 23:41 Lidocaine (Lidoderm 5% PATCH) 1 patch Q24H TDERMAL 01/11/20 09:00 04/10/20 08:59 01/12/20 08:35 Lidocaine HCl (Xylocaine 1% 30ml) 30 ml ONCE PRN INJ procedure 01/12/20 08:04 01/12/20 23:59 Lisinopril (ZestriL) 10 mg DAILY ORAL 01/06/20 18:15 02/05/20 18:14 01/12/20 08:33 Lorazepam (Ativan) 1 mg BIDPRN PRN ORAL Agitation 01/06/20 18:15 01/13/20 18:14 Metoprolol Tartrate (Lopressor) 50 mg DAILY ORAL 01/07/20 09:00 04/06/20 08:59 01/12/20 08:32 Metronidazole 100 ml @ 100 mls/hr Q8HR IVPB 01/06/20 22:00 01/13/20 21:59 01/10/20 14:36 Ondansetron HCl (Zofran) 4 mg Q6H PRN IVP Nausea & Vomiting 01/06/20 18:30 02/05/20 18:29 01/11/20 08:36 Pantoprazole (Protonix) 40 mg EVERY 12 HOURS IVP 01/08/20 09:00 02/07/20 08:59 01/11/20 23:33 Trazodone HCl (Desyrel) 50 mg BEDTIME ORAL 01/06/20 21:00 02/05/20 20:59 01/11/20 21:43 Zolpidem Tartrate (Ambien) 5 mg QHS ORAL 01/06/20 21:00 01/13/20 20:59 01/09/20 20:34 Allergies: Coded Allergies: CEFOTETAN (Verified Allergy, Severe, SHORTNESS OF BREATH, 03/20/12) CEFOTETAN DISODIUM (Unverified Allergy, Severe, 07/29/12) QUINOLONES (Verified Allergy, Mild, Rash, 03/20/12) CEFAZOLIN (Verified Allergy, Unknown, 07/01/09) CEFOTIAM (Verified Allergy, Unknown, Anaphylaxis, 12/07/16) CIPROFLOXACIN (Verified Allergy, Unknown, Hives, 12/07/16) CIPROFLOXACIN HCL (Verified Allergy, Unknown, Hives, 12/07/16) DEXTROSE-WATER (Unverified Allergy, Unknown, 12/07/16) LEVOFLOXACIN (Verified Allergy, Unknown, 12/07/16) Uncoded Allergies: SUFTAN (Allergy, Unknown, 12/07/16) Subjective Patient had EGD which revealed gastritis. When visiting patient today, biggest issue is ongoing severe lower back pain. She states since she had a fall in house, her lower back is now hurting. This is a chronic issue for patient, however she states the pain is now worse today and she states she is concerned she may have herniated another disc. I have been informed by patients insurance that the hospital visit is being denied. Phone medical officer and left message. Hoping to have PT eval then d/c, but need to ensure patient cant ambulate first ; spoke to nurse and told to d/c picc line and MRI lumbar spine. Also asked nurse to d/c IV pain meds Objective Last Vital Signs Date Time Temp Pulse Resp B/P (MAP) Pulse Ox O2 Delivery O2 Flow Rate FiO2 01/12/20 09:00 Room Air 01/12/20 08:33 127/58 01/12/20 08:33 63 01/12/20 08:00 98.0 18 97 01/11/20 11:10 3 Laboratory Tests Test 01/12/20 05:40 White Blood Count 10.1 K/UL (4.8-10.8) Red Blood Count 4.24 M/UL (4.20-5.40) Hemoglobin 11.4 G/DL (12.0-16.0) L Hematocrit 35.0 % (37.0-47.0) L Mean Corpuscular Volume 82 FL (80-99) Mean Corpuscular Hemoglobin 26.8 PG (27.0-31.0) L Mean Corpuscular Hemoglobin Concent 32.5 G/DL (32.0-36.0) Red Cell Distribution Width 14.6 % (11.6-14.8) Platelet Count 200 K/UL (150-450) Mean Platelet Volume 9.7 FL (6.5-10.1) Neutrophils (%) (Auto) 63.2 % (45.0-75.0) Lymphocytes (%) (Auto) 22.2 % (20.0-45.0) Monocytes (%) (Auto) 8.6 % (1.0-10.0) Eosinophils (%) (Auto) 5.1 % (0.0-3.0) H Basophils (%) (Auto) 0.9 % (0.0-2.0) Sodium Level 142 MMOL/L (136-145) Potassium Level 3.8 MMOL/L (3.5-5.1) Chloride Level 107 MMOL/L (98-107) Carbon Dioxide Level 25 MMOL/L (21-32) Anion Gap 10 mmol/L (5-15) Blood Urea Nitrogen 9 mg/dL (7-18) Creatinine 0.9 MG/DL (0.55-1.30) Estimat Glomerular Filtration Rate > 60 mL/min (>60) Glucose Level 124 MG/DL (74-106) H Calcium Level 8.6 MG/DL (8.5-10.1) Phosphorus Level 2.6 MG/DL (2.5-4.9) Magnesium Level 1.7 MG/DL (1.8-2.4) L Total Bilirubin 0.1 MG/DL (0.2-1.0) L Aspartate Amino Transf (AST/SGOT) 39 U/L (15-37) H Alanine Aminotransferase (ALT/SGPT) 37 U/L (12-78) Alkaline Phosphatase 100 U/L (46-116) Total Protein 6.4 G/DL (6.4-8.2) Albumin 3.1 G/DL (3.4-5.0) L Globulin 3.3 g/dL Albumin/Globulin Ratio 0.9 (1.0-2.7) L Intake and Output 01/11/20 01/12/20 18:59 06:59 Intake Total 265 ml 200 ml Output Total 1200 ml Balance -935 ml 200 ml Intake Oral 140 ml 200 ml IV Total 125 ml Output Urine Total 1200 ml Estimated Blood Loss 0 ml # Voids 3 4 Objective General Appearance: WD/WN, moderate distress Cardiovascular: normal rate, regular rhythm Respiratory/Chest: lungs clear, normal breath sounds, no respiratory distress Abdomen: soft, other - mildly TTP Extremities: difficult to move legs 2/2 lower back pain MSK: severe lower back pain states painful to move Neurologic: concrete floater II-XII grossly normal Skin: warm/dry Assessment/Plan Assessment/Plan Assessment #Fall, rule out femoral cortical Fx --> CT negative for Fx , however now severe Lumbago w/ difficulty ambulating #Gastritis s/p EGD #Colitis --> not septic, wbc wnl, hx of chronic GI issues, Last Colonoscopy was 3 years ago, Hx of Ex Lap s/p Colectomy ( per patient report 2/2 perforated Diverticulitis) #HTN #Renal Nodules, r/o CA, patient w/ established nephro/PCP care #DMII #Chronic Back Pain Plan Appreciate Nephro/PCP and GI Await PT Eval, D/C IV pain meds S/P EGD Stool Studies , COVID is negative Zofran, Morphine IV prn Obtain and reconcile home meds--> for HTN- metoprolol,Atorvastatin, norvasc, For Pain Gabapentin and Soma Hold ASA for now given concern for gastritis Weight based insulin dosing, goal blood sugar less than 180 while in patient, A1C noted Protonix IV BID DVT ppx Diet as tolerated 01/09: Anticipate EGD tomorrow; will get CT of femur to rule out Fx. 01/10: EGD today. PT tomorrow 01/11: S/P EGD; await PT aracelis, hoping to discharge Bruna Dangelo D.O. January 12, 2020 12:04
[2020-01-12] MEDS ORDERED: PANTOPRAZOLE SO40 MG ORAL (12:11)
--- NOTE | 2020-01-12 12:14 | Discharge Instructions ---
Discharge Instructions Discharge Instructions Special Instructions Please f/u with PCP. Take protonix as instructed. Do not take aspirin or Ibuprofen until okay to do so per pcp For Congestive Heart Failure Reminder Report to your physician any weight gain of 5 pounds or more in one week. Brnua Dangelo D.O. January 12, 2020 12:14
[2020-01-12] MEDS: HYDROcodone/Acetamin 10/325 tab ORAL PRN ×2 (14:00→17:51)
--- NOTE | 2020-01-12 15:40 | Surgery Progress Note ---
Surgery Progress Note Subjective Additional Comments EGD gastritis improved tolerating diet wants to go home no n/v/f/c Objective Last 24 Hour Vital Signs Date Time Temp Pulse Resp B/P (MAP) Pulse Ox O2 Delivery O2 Flow Rate FiO2 01/12/20 12:00 98.3 66 19 124/61 (82) 98 01/12/20 09:00 Room Air 01/12/20 08:33 127/58 01/12/20 08:33 63 127/58 01/12/20 08:32 63 127/58 01/12/20 08:00 98.0 63 18 127/58 (81) 97 01/12/20 00:00 97.5 61 18 119/84 (96) 95 01/11/20 21:00 Room Air 01/11/20 17:58 96.8 01/11/20 16:00 96.8 56 18 107/56 (73) 98 I&O Intake and Output 01/11/20 01/12/20 19:00 07:00 Intake Total 265 ml 200 ml Output Total 1200 ml Balance -935 ml 200 ml Intake Oral 140 ml 200 ml IV Total 125 ml Output Urine Total 1200 ml Estimated Blood Loss 0 ml # Voids 3 4 Dressing: other Wound: other Drains: other Cardiovascular: RSR Respiratory: decreased breath sounds Abdomen: soft, non-tender, present bowel sounds, non-distended Extremities: no edema, no tenderness, no cyanosis Laboratory Tests Test 01/12/20 05:40 White Blood Count 10.1 K/UL (4.8-10.8) Red Blood Count 4.24 M/UL (4.20-5.40) Hemoglobin 11.4 G/DL (12.0-16.0) L Hematocrit 35.0 % (37.0-47.0) L Mean Corpuscular Volume 82 FL (80-99) Mean Corpuscular Hemoglobin 26.8 PG (27.0-31.0) L Mean Corpuscular Hemoglobin Concent 32.5 G/DL (32.0-36.0) Red Cell Distribution Width 14.6 % (11.6-14.8) Platelet Count 200 K/UL (150-450) Mean Platelet Volume 9.7 FL (6.5-10.1) Neutrophils (%) (Auto) 63.2 % (45.0-75.0) Lymphocytes (%) (Auto) 22.2 % (20.0-45.0) Monocytes (%) (Auto) 8.6 % (1.0-10.0) Eosinophils (%) (Auto) 5.1 % (0.0-3.0) H Basophils (%) (Auto) 0.9 % (0.0-2.0) Sodium Level 142 MMOL/L (136-145) Potassium Level 3.8 MMOL/L (3.5-5.1) Chloride Level 107 MMOL/L (98-107) Carbon Dioxide Level 25 MMOL/L (21-32) Anion Gap 10 mmol/L (5-15) Blood Urea Nitrogen 9 mg/dL (7-18) Creatinine 0.9 MG/DL (0.55-1.30) Estimat Glomerular Filtration Rate > 60 mL/min (>60) Glucose Level 124 MG/DL (74-106) H Calcium Level 8.6 MG/DL (8.5-10.1) Phosphorus Level 2.6 MG/DL (2.5-4.9) Magnesium Level 1.7 MG/DL (1.8-2.4) L Total Bilirubin 0.1 MG/DL (0.2-1.0) L Aspartate Amino Transf (AST/SGOT) 39 U/L (15-37) H Alanine Aminotransferase (ALT/SGPT) 37 U/L (12-78) Alkaline Phosphatase 100 U/L (46-116) Total Protein 6.4 G/DL (6.4-8.2) Albumin 3.1 G/DL (3.4-5.0) L Globulin 3.3 g/dL Albumin/Globulin Ratio 0.9 (1.0-2.7) L Plan Problems: (1) Colitis Assessment & Plan: ABDOMEN: Liver: Hemangioma again noted in the right liver. Stable small hypodensity more inferiorly in the right liver is too small to definitively characterize but may represent another hemangioma. Hepatomegaly. Gallbladder and bile ducts: Unremarkable. No calcified stones. No ductal dilation. Pancreas: Atrophy of the pancreas. No ductal dilation. Spleen: Splenule. Mild splenomegaly. Adrenals: Nonspecific stable bilateral adrenal nodules. Kidneys and ureters: Increased prominence of small hypodensities in the inferior right kidney which measure greater than simple fluid attenuation and are nonspecific. These lesions measure approximately 1.6 cm and 1 cm. Further evaluation could be performed with ultrasound. Punctate nonobstructing right renal stone. No hydronephrosis or ureteral stone. Nonspecific mild bilateral perinephric fat stranding. Lesion off the inferior left kidney seen on prior exam in 2014 is not appreciated on this exam. Stomach and bowel: Prominence of the kirkpatrick of the colon may be secondary to under distention, but element of colitis is not excluded. Prominence of the wall of the stomach may be secondary to under distention versus gastritis. Diverticulosis without evidence of diverticulitis. No bowel obstruction. PELVIS: Appendix: Appendix is not visualized, but no CT evidence of acute appendicitis. Bladder: Decompressed bladder limits evaluation. Reproductive: Prior hysterectomy. ABDOMEN and PELVIS: Intraperitoneal space: Unremarkable. No free air. No significant fluid collection. Bones/joints: Probable small bone islands in the pelvic bones. Degenerative changes of the spine. No acute fracture. No dislocation. Soft tissues: Probable left lateral ventral hernia repair with mild protrusion of bowel loops in this region. There is also protrusion of bowel loops in the lower midline abdomen with evidence of prior hernia repair. Vasculature: Atherosclerotic changes of the vasculature. No aortic aneurysm or dissection. Lymph nodes: Unremarkable. No enlarged lymph nodes. IMPRESSION: 1. Nonspecific stable bilateral adrenal nodules. 2. Increased prominence of small hypodensities in the inferior right kidney which measure greater than simple fluid attenuation and are nonspecific. These lesions measure approximately 1.6 cm and 1 cm. Further evaluation could be performed with ultrasound. Neoplasm such as RCC is not excluded. 3. Punctate nonobstructing right renal stone. No hydronephrosis or ureteral stone. 4. Prominence of the kirkpatrick of the colon may be secondary to under distention, but element of colitis is not excluded. (2) Acute abdominal pain Assessment & Plan: Patient presents with 2 weeks of intermittent abdominal discomfort and worsening abdominal pain for the past 3 days. Currently no nausea vomiting fever chills. CT noted no acute intra-abdominal pathology clearly identified currently Abdominal exam with discomfort mild distention positive bowel sounds but no peritonitis No leukocytosis, no shift, possible UTI IV antibiotics per as per infectious disease IV fluids Okay for diet from surgical standpoint patient passing flatus We will follow with serial abdominal examinations no acute surgical intervention planned thank you for let me participate in patient's care improved gastritis on egd d/c home CT noted for fall Patient has a total knee prosthesis in place. Metal artifacts noted in the region of the knee. No sign of fracture or loosening of the prosthesis. The right femur appears intact to the extent visualized. Alignment of the hip is anatomic. There is fatty atrophy of the anterior quadriceps muscular bundle. IMPRESSION: NO ACUTE FRACTURE OR MALALIGNMENT DEMONSTRATED. RIGHT KNEE PROSTHESIS. Norberto Marie January 12, 2020 15:40
--- NOTE | 2020-01-12 15:45 | NUR ---
*-* INSURANCE *-* UPDATED CLINICALS AND REVIEWS HAVE BEEN FAXED TO: [employer] P: [phone] F: [phone] (FAX CLINICALS HERE AND TO [employer]) & [employer] AUTH# [id number] FAX CLINICALS TO:[phone]
--- NOTE | 2020-01-12 15:48 | NUR ---
P.T Note: P.T evaluation completed. Pt is alert, O x 4 , pleasant and cooperative. Pt presented c/o pain in the lower back pain 5/10 and feeling weak on the RLE. Pt however despite the above c/c was able to perform and complete bed mobility and transfer mobilities independently. Pt able to ambulate with the FWW Independently and safely. Pt's currently functional status does not warrant skilled P.T service in acute setting however may possibly befit from OP P.T to address strength and LBP management. Advised patient to use the FWW at home to promote safe ambulation. DC P.T services. Thank you for this referral.
[2020-01-12 16:00] VITALS: BP 129/68
[2020-01-12 18:15] VITALS: BP 128/56
--- NOTE | 2020-01-12 18:23 | NUR ---
NURSE NOTES: Patient d/c via spouses car. ID band removed, IV site removed. Patient stable.
--- NOTE | 2020-01-14 20:37 | Discharge Summary ---
Discharge Summary Hospital Course Date of Admission January 06, 2020 at 12:52 Date of Discharge January 12, 2020 at 18:23 Admitting Diagnosis Colitis, Intractabel Abdominal Pain HPI Quan Cabral is a 59 year old female who was admitted on January 06, 2020 at 12: 52 for Colitis, Intractabel Abdominal Pain Hospital Course Assessment #Colitis --> not septic, wbc wnl, hx of chronic GI issues, Last Colonoscopy was 3 years ago, Hx of Ex Lap s/p Colectomy ( per patient report 2/2 perforated Diverticulitis) #HTN #Renal Nodules, r/o CA, patient w/ established nephro/PCP care #DMII #Chronic Back Pain Plan Appreciate Nephro/PCP and GI Zosyn IV Empirically , Stool Studies , C diff Clear Liquid Diet, Zofran, Morphine IV prn Obtain and reconcile home meds--> for HTN- metoprolol, ASA, Atorvastatin, norvasc, For Pain Gabapentin and Soma Weight based insulin dosing, goal blood sugar less than 180 while in patient, A1C pending Pepcid IV BID DVT ppx 01/11: Patient was cleared for discharge home to f/u with pcp DX #Gastritis #Colitis #HTN #DMII #Chronic Back Pain Discharge Discharge Vital Signs Last Vital Signs Date Time Temp Pulse Resp B/P (MAP) Pulse Ox O2 Delivery O2 Flow Rate FiO2 01/12/20 18:15 51 18 99 01/12/20 16:00 98.1 129/68 (88) 01/12/20 09:00 Room Air 01/11/20 11:10 3 Discharge Disposition Patient was discharged to Bruna Dangelo D.O. January 14, 2020 20:37
--- NOTE | 2020-01-15 15:50 | NUR ---
*-* INSURANCE *-* DISCHARGE SUMMARY HAS BEEN FAXED [employer] P: [phone] F: [phone] (FAX CLINICALS HERE AND TO [facility]) & [employer] AUTH# [id number] FAX CLINICALS TO:[phone]
== END 2020-01-12 18:23 | disposition home or self-care (01) | DRG 241 ==
LOC: EMR 10:26 → 3E 12:52 → EDBEDREQ 13:52 → 4E 14:52
PROC: 0DB78ZZ Excision of Stomach, Pylorus, Via Natural or Artificial Opening Endoscopic (ICD-10-PCS; 2020-01-11)
PROC: 0DB78ZX Excision of Stomach, Pylorus, Via Natural or Artificial Opening Endoscopic, Diagnostic (ICD-10-PCS; principal; 2020-01-11 10:49)
DX: K29.70 Gastritis, unspecified, without bleeding (principal); K52.9 Noninfective gastroenteritis and colitis, unspecified; Z88.1 Allergy status to other antibiotic agents; Z88.8 Allergy status to other drugs, medicaments and biological substances; Z79.82 Long term (current) use of aspirin; I10 Essential (primary) hypertension; E11.9 Type 2 diabetes mellitus without complications; G89.29 Other chronic pain; M54.9 Dorsalgia, unspecified; K57.90 Diverticulosis of intestine, part unspecified, without perforation or abscess without bleeding; E78.5 Hyperlipidemia, unspecified; K21.9 Gastro-esophageal reflux disease without esophagitis; K31.7 Polyp of stomach and duodenum; D64.9 Anemia, unspecified; Z96.651 Presence of right artificial knee joint
CPT/HCPCS: 36415; 72020; 73521; 74177; 80048; 80053; 81003; 82607; 82728; 82746; 83036; 83540; 83550; 83690; 83735; 84100; 85025; 87635; 94003; 94150; 96361; 96374; 96375; 99285; J2405; J7030

== ENCOUNTER 2020-01-15 16:00 | Emergency (ER) | payer MEDICAID ==
[~2020-01-15] VITALS: Ht 167.6 cm; Wt 109.8 kg
[~2020-01-15 16:00] MED LIST changes: +COLACE100 MG ORAL; +GABAPENTIN800 MG ORAL; +LIORESAL20 MG ORAL; +PANTOPRAZOLE SO40 MG ORAL; +TRAZODONE HCL50 MG ORAL
--- NOTE | 2020-01-15 16:19 | Emergency Room Report ---
History of Present Illness General Chief Complaint: Abdominal Pain Source: Patient Present Illness HPI Patient is a 59-year-old female who presents after increased epigastric pain and vomiting. Prior history of gastritis. Patient had recent hospitalization and had recent endoscopy which showed some gastric irritation. Recently started on antibiotics. Denies any fever. Reports having multiple episodes of emesis over the past 2 days. Prior history of type 2 diabetes. States that she smokes marijuana several times a week. Denies any hematemesis or bloody stools. Had recently been started on omeprazole as well as ondansetron. Persistently had been vomiting since then. Denies any shortness of breath or fever. Allergies: Coded Allergies: CEFOTETAN (Verified Allergy, Severe, SHORTNESS OF BREATH, 03/20/12) CEFOTETAN DISODIUM (Unverified Allergy, Severe, 07/29/12) QUINOLONES (Verified Allergy, Mild, Rash, 03/20/12) CEFAZOLIN (Verified Allergy, Unknown, 07/01/09) CEFOTIAM (Verified Allergy, Unknown, Anaphylaxis, 12/07/16) CIPROFLOXACIN (Verified Allergy, Unknown, Hives, 12/07/16) CIPROFLOXACIN HCL (Verified Allergy, Unknown, Hives, 12/07/16) DEXTROSE-WATER (Unverified Allergy, Unknown, 12/07/16) LEVOFLOXACIN (Verified Allergy, Unknown, 12/07/16) Uncoded Allergies: SUFTAN (Allergy, Unknown, 12/07/16) COVID-19 Screening Contact w/high risk pt: No Recent Travel to affected area: No Experienced COVID-19 symptoms?: No COVID-19 Testing performed KNIFER UP: No Patient History Past Medical History: see triage record Last Menstrual Period: na Reviewed Nursing Documentation: PMH: Agreed; PSxH: Agreed Nursing Documentation-PMH Past Medical History: No History, Except For Hx Hypertension: Yes Hx Diabetes: Yes Hx Cancer: No Hx Gastrointestinal Problems: Yes - DIVERTICULITIS, ABD HERNIA REPAIR Hx Cerebrovascular Accident: Yes Review of Systems All Other Systems: negative except mentioned in HPI Physical Exam Vital Signs Date Time Temp Pulse Resp B/P (MAP) Pulse Ox O2 Delivery O2 Flow Rate FiO2 01/15/20 15:57 98.2 76 18 181/89 (119) 98 Room Air Sp02 EP Interpretation: reviewed, normal General Appearance: normal inspection, alert, GCS 15, obese, Chronically Ill Head: atraumatic ENT: normal ENT inspection, hearing grossly normal, normal voice Neck: normal inspection, full range of motion, supple, no bony tend Respiratory: normal inspection, lungs clear, normal breath sounds, no respiratory distress, no retraction, no wheezing Cardiovascular #1: regular rate, rhythm, no edema Gastrointestinal: normal inspection, normal bowel sounds, non tender, soft, no guarding, no hernia Genitourinary: no CVA tenderness Musculoskeletal: normal inspection, back normal, normal range of motion Neurologic: alert, motor strength/tone normal, composite technician III-XII nml as tested, oriented x3, responsive, speech normal, normal inspection Psychiatric: normal inspection, judgement/insight normal, mood/affect normal Medical Decision Making Diagnostic Impression: Primary Impression: Gastritis Additional Impression: Marijuana use ER Course Patient presented for abdominal pain. Differential diagnoses included ischemic bowel, appendicitis, perforated viscus, abdominal aortic aneurysm, inferior myocardial infarction, viral gastroenteritis among others.Because patient's complexity laboratory testing ordered. Laboratory testing showed . Electrolytes were unremarkable. Lipase was Normal. Patient is given medications for pain as well as for acid blockers. She is also given antiemetics with improvement in her nausea. Patient was also able to tolerate p.o. fluids. Patient was offered admission but she stated she wanted to leave. Patient was discharged home with prescription for capsaicin cream. She was advised to follow-up with Dr. Najera visit her primary care physician. She was advised to return if any worsening of condition or vomiting recurred or any other concerns.. Laboratory Tests Test 01/15/20 16:40 01/15/20 18:00 White Blood Count 8.3 K/UL (4.8-10.8) Red Blood Count 4.65 M/UL (4.20-5.40) Hemoglobin 12.6 G/DL (12.0-16.0) Hematocrit 41.3 % (37.0-47.0) Mean Corpuscular Volume 89 FL (80-99) Mean Corpuscular Hemoglobin 27.2 PG (27.0-31.0) Mean Corpuscular Hemoglobin Concent 30.6 G/DL (32.0-36.0) L Red Cell Distribution Width 16.8 % (11.6-14.8) H Platelet Count 209 K/UL (150-450) Mean Platelet Volume 12.5 FL (6.5-10.1) H Neutrophils (%) (Auto) 66.4 % (45.0-75.0) Lymphocytes (%) (Auto) 20.3 % (20.0-45.0) Monocytes (%) (Auto) 9.3 % (1.0-10.0) Eosinophils (%) (Auto) 2.8 % (0.0-3.0) Basophils (%) (Auto) 1.2 % (0.0-2.0) Sodium Level 139 MMOL/L (136-145) Potassium Level 4.3 MMOL/L (3.5-5.1) Chloride Level 104 MMOL/L (98-107) Carbon Dioxide Level 25 MMOL/L (21-32) Anion Gap 10 mmol/L (5-15) Blood Urea Nitrogen 7 mg/dL (7-18) Creatinine 0.9 MG/DL (0.55-1.30) Estimated Glomerular Filtration Rate > 60 mL/min (>60) Glucose Level 178 MG/DL (74-106) H Calcium Level 9.2 MG/DL (8.5-10.1) Total Bilirubin 0.5 MG/DL (0.2-1.0) Aspartate Amino Transferase (AST) 67 U/L (15-37) H Alanine Aminotransferase (ALT) 39 U/L (12-78) Alkaline Phosphatase 108 U/L (46-116) Troponin I 0.004 ng/mL (0.000-0.056) Total Protein 7.2 G/DL (6.4-8.2) Albumin 3.5 G/DL (3.4-5.0) Globulin 3.7 g/dL Albumin/Globulin Ratio 0.9 (1.0-2.7) L Lipase 47 U/L (73-393) L Urine Color Yellow Urine Appearance Clear Urine pH 7 (4.5-8.0) Urine Specific [place] 1.005 (1.005-1.035) Urine Protein Negative (NEGATIVE) Urine Glucose (UA) Negative (NEGATIVE) Urine Ketones 1+ (NEGATIVE) H Urine Blood Negative (NEGATIVE) Urine Nitrite Negative (NEGATIVE) Urine Bilirubin Negative (NEGATIVE) Urine Urobilinogen 4 MG/DL (0.0-1.0) H Urine Leukocyte Esterase Negative (NEGATIVE) Last Vital Signs Date Time Temp Pulse Resp B/P (MAP) Pulse Ox O2 Delivery O2 Flow Rate FiO2 01/15/20 15:57 98.2 76 18 181/89 (119) 98 Room Air Status: improved Disposition: HOME, SELF-CARE Condition: Stable Scripts Capsaicin (CAPSAICIN) 42.5 Gm Cream..g. 42.5 GM TP ONCE, #42.5 GM Prov: Hernan Lynn MD 01/15/20 Hernan Lynn MD Jan 15, 2020 16:19
[2020-01-15] MEDS ORDERED: Haloperidol Lactate 5 MG in D5W 55 ML IVPB ONE (16:30)
[2020-01-15 16:57] LABS: BASOPHILS % (AUTO) 1.2 % (0.0-2.0); EOSINOPHILS % (AUTO) 2.8 % (0.0-3.0); HEMATOCRIT 41.3 % (37.0-47.0); HEMOGLOBIN 12.6 G/DL (12.0-16.0); LYMPHOCYTES % (AUTO) 20.3 % (20.0-45.0); MEAN CORPUSCULAR VOLUME 89 FL (80-99); MONOCYTES % (AUTO) 9.3 % (1.0-10.0); NEUTROPHILS % (AUTO) 66.4 % (45.0-75.0); PLATELET COUNT 209 K/UL (150-450); RED BLOOD COUNT 4.65 M/UL (4.20-5.40); RED CELL DISTRIBUTION WIDTH 16.8 % (11.6-14.8); WHITE BLOOD COUNT 8.3 K/UL (4.8-10.8)
[2020-01-15 17:23] LABS: ANION GAP 10 mmol/L (5-15); BLOOD UREA NITROGEN 7 mg/dL (7-18); CALCIUM 9.2 MG/DL (8.5-10.1); CARBON DIOXIDE 25 MMOL/L (21-32); CHLORIDE 104 MMOL/L (98-107); CREATININE 0.9 MG/DL (0.55-1.30); POTASSIUM 4.3 MMOL/L (3.5-5.1); SODIUM 139 MMOL/L (136-145)
[2020-01-15 17:27] LABS: ALANINE AMINOTRANSFERASE 39 U/L (12-78); ALBUMIN 3.5 G/DL (3.4-5.0); ALBUMIN/GLOBULIN RATIO 0.9 (1.0-2.7); ALKALINE PHOSPHATASE 108 U/L (46-116); ASPARTATE AMINO TRANSFERASE 67 U/L (15-37); BILIRUBIN,TOTAL 0.5 MG/DL (0.2-1.0)
[2020-01-15] MEDS ORDERED: Lidocaine 2% Visc 15ml soln ORAL ONE (17:45)
[2020-01-15] MEDS ORDERED: Dicyclomine HCl 10mg/5ml oral soln ORAL ONE (17:45)
--- NOTE | 2020-01-15 18:04 | NUR ---
ED Nurse Note:blood and urine sent to labs
[2020-01-15 18:23] LABS: APPEARANCE,URINE CLEAR; BILIRUBIN, URINE NEGATIVE (NEGATIVE); COLOR,URINE YELLOW; GLUCOSE, URINE (UA) NEGATIVE (NEGATIVE); KETONES,URINE 1+ (NEGATIVE); LEUKOCYTE ESTERASE ,URINE NEGATIVE (NEGATIVE); NITRITE,URINE NEGATIVE (NEGATIVE); PH,URINE 7 (4.5-8.0); PROTEIN,URINE NEGATIVE (NEGATIVE); UROBILINOGEN,URINE 4 MG/DL (0.0-1.0)
[2020-01-15] MEDS ORDERED: Morphine Sulfate 2mg/ml Inj(IV/IM USE ONLY) IVP ONE (18:45)
[2020-01-15 18:48] VITALS: BP 161/82
--- NOTE | 2020-01-15 19:07 | NUR ---
ED Nurse Note: Pt resting in bed, VSS no ss of distress noted. Will continue to monitor.
[2020-01-15] MEDS ORDERED: CAPSAICIN42.5 GM TP (19:21)
[2020-01-15 19:40] VITALS: BP 161/82
--- NOTE | 2020-01-15 19:40 | NUR ---
ER DISCHARGE NOTE: Patient is cleared to be discharged home per ERMD, pt is aox4, 98% n room air, with stable vital signs. pt was given dc and prescription instructions, pt was able to verbalize understanding, pt id band and iv site removed without complications. pt is able to ambulate with steady gait. pt took all belongings.
== END 2020-01-15 19:40 | disposition home or self-care (01) ==
LOC: EDBD 16:00 → EMR 17:00
DX: K29.70 Gastritis, unspecified, without bleeding (principal); F12.90 Cannabis use, unspecified, uncomplicated; E66.9 Obesity, unspecified; E11.9 Type 2 diabetes mellitus without complications; Z88.8 Allergy status to other drugs, medicaments and biological substances; I10 Essential (primary) hypertension; Z86.73 Personal history of transient ischemic attack (TIA), and cerebral infarction without residual deficits; Z68.39 Body mass index [BMI] 39.0-39.9, adult
CPT/HCPCS: 36415; 80053; 81003; 83690; 84484; 85025; 96374; 96375; J1630; J2270; J7040; S0028; Z7502; 99284